=== PATIENT | female | born 1985 | race Caucasian/White ===

== ENCOUNTER → 2018-02-09 19:50 | Outpatient (CLI) | payer OTHER, SELFPAY ==
[2018-02-16 08:48] LABS: HPV APTIMA, High Risk Negative (Negative)
== END ==
PROVIDERS: Visit Provider Obstetrics & Gynecology
DX: Z12.4 Encounter for screening for malignant neoplasm of cervix (principal)
CPT/HCPCS: 88175; G0145

== ENCOUNTER → 2018-02-15 07:28 | Outpatient (CLI) | payer OTHER, SELFPAY ==
[2018-02-15 10:17] LABS: Cholesterol 127 mg/dL (200); Glucose 89 mg/dL (74-106); High Density Lipoprotein 51 mg/dL; Triglycerides 87 mg/dL; Very Low Density Lipoprotein 17 mg/dL (5-40)
[2018-02-16 08:36] LABS: Vitamin D,25 Hydroxy 33.8 ng/mL (29.95-100.01)
== END ==
PROVIDERS: Family Provider Internal Medicine; PCP Internal Medicine; Visit Provider Obstetrics & Gynecology
DX: Z13.21 Encounter for screening for nutritional disorder (principal); Z13.220 Encounter for screening for lipoid disorders; Z13.1 Encounter for screening for diabetes mellitus
CPT/HCPCS: 36415; 80061; 82306; 82947

== ENCOUNTER → 2018-10-15 08:48 | Outpatient (CLI) | payer OTHER, SELFPAY ==
--- NOTE | 2018-10-15 08:54 | RAD_ITS ---
STUDY: X-RAY - RIGHT FOOT CLINICAL: Female, 33 years old. Pain and swelling of the first metatarsophalangeal joint following injury. TECHNIQUE: 3 view(s) of the foot. COMPARISON: None. FINDINGS: Normal talus, calcaneus, and tarsal bones. Normal visualized subtalar, talonavicular, calcaneocuboid, tarsal and tarsometatarsal articulations. Normal metatarsi. Normal metatarsophalangeal joint of the great toe. Normal tibial and fibular sesamoid bones. Normal interphalangeal joint of the great toe. Normal phalanges of the great toe. Normal second through fifth metatarsophalangeal joints. Normal interphalangeal joints and phalanges of the lesser toes. The soft tissue structures are unremarkable. RAD/Foot min 3 Views IMPRESSION: Normal x-ray examination of the foot. Electronically Signed: Lauro Vasquez, at 15:17 EDT , Service support ,
== END ==
PROVIDERS: Family Provider Internal Medicine; PCP Internal Medicine; Referring Provider Internal Medicine; Visit Provider Internal Medicine
DX: M79.671 Pain in right foot (principal)
CPT/HCPCS: 73630

== ENCOUNTER → 2019-03-29 09:16 | Outpatient (CLI) | payer OTHER, SELFPAY ==
[2019-03-12 14:19] VITALS: BMI 23.9
--- NOTE | 2019-03-29 09:30 | US_ITS ---
STUDY: ULTRASOUND BREAST - LEFT REASON FOR EXAM: Female, 33 years old. Left breast palpable lump at 6:00. TECHNIQUE: Axial and longitudinal images of the LEFT breast were performed with a high resolution ultrasound transducer. COMPARISON: Comparison is made with prior mammogram done earlier today. FINDINGS: LEFT Breast: The inferior aspect of the left breast was examined by ultrasound. No sonographic timeout using US/Breast Limited Unilateral IMPRESSION: No sonographic abnormalities. ASSESSMENT CATEGORY: BIRADS Category 1: Negative. A letter regarding these results will be sent to the patient by the facility within 30 days. Electronically Signed: Lauro Vasquez, at 15:41 EDT , Service support ,
--- NOTE | 2019-03-29 09:30 | BI_ITS ---
MAMMOGRAPHY - BILATERAL DIAGNOSTIC REASON FOR EXAM: Female, 33 years old. Lump at the 6:00 position of the left breast. PERTINENT HISTORY: Grandmother with breast cancer. TECHNIQUE: Digital bilateral breast abdi (3D mammographic acquisition) in the CC and MLO projections. 2-D mediolateral oblique (MLO) and craniocaudad (CC) views of both breasts were obtained. CAD: Full Field Digital Mammography with Computer Added Detection was performed. COMPARISON: None. Baseline examination. FINDINGS: Breast Composition: The breasts are extremely dense, which lowers the sensitivity of mammography. There are no dominant masses or suspicious calcifications. No other significant abnormalities are identified. BI/DIAG MAMM W/CAD, BILAT IMPRESSION: Negative diagnostic mammogram. With the patient's history of a palpable abnormality in the left breast, correlation with ultrasound is recommended. ASSESSMENT CATEGORY: BIRADS Category 0: Incomplete. Need additional imaging evaluation. A letter regarding these results will be sent to the patient by the facility within 30 days. Approximately 10% of breast cancers are not detected by mammography. A normal mammogram should not delay biopsy of a clinically suspicious abnormality. Electronically Signed: Lauro Vasquez, at 13:14 EDT , Service support ,
== END ==
PROVIDERS: Family Provider Internal Medicine; PCP Internal Medicine; Referring Provider Obstetrics & Gynecology; Visit Provider Obstetrics & Gynecology
DX: N63.20 Unspecified lump in the left breast, unspecified quadrant (principal); Z80.3 Family history of malignant neoplasm of breast
CPT/HCPCS: 76642; 77062; 77066; G0279

== ENCOUNTER 2019-04-02 12:30 | Outpatient (RCR) | payer OTHER, SELFPAY ==
--- NOTE | 2019-03-08 16:43 | HP.PTEVAL_ITS ---
Patient's Visit Information FRANCHESCA WILCOX is a 33 year old F referred to Physical Therapy by Cristobal Sarmiento PA-C with a diagnosis of PAIN IN RIGHT SHOULDER. Date of Evaluation: 03/08/19 Physical Therapist: Hussain Page, PT, Cert MDT, OCS - Visit Plan Frequency: 2x /Week Duration: 4 Weeks Plan: PT INTEREVENTIONS RTC/SCAPULAR STRENGTHENING,POSTURAL EX'S,MODALTIES FOR PAIN RELIEVE NEEDED - Subjective Findings: This 33 y/o female presents to physical therapy with right shoulder pain. Patient may have strained right shoulder end December throwing baseball. Location of pain pposterior shoulder ,global .Seen ortho at [facility],did x-rays-,medro pack. 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 Symtoms increase 8/10 worst.Pain affects sleeping. Alleviating medropack,ice pack. Denies parathesia/tingling. Patient pain affects QOL and housework . Patient pain affects QOL. 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 SOCAIL: - Pain Right Shoulder Pain Intensity (Out of 10): 8 Pain Intensity Range: 10 Comment: 2-3/10 today - Objective POSTURE: mild foward posture. NEURO: intact. PALAPTION: unremarkable. AROM: shoulder flexion 155 degrees,abd 160 degrees ,ER 90 > all pane with OP. IR able to reach T8. MMT: RTC 4/5 ,anterior deltoid 4-/5,lateral deltoid 4-/5 pain ,middle traps 4-/5 ,lower traps 3+/5 - Special Tests R Shoulder Supine Impingement Test - RC Tear: Negative R Shoulder Lift Off Test - Subscapular Tear: Negative R Shoulder Neer - Impingement: Positive R Shoulder Chen Milo - Impingement: Positive - Goals Goal 1:: Independant with HEP Goal Time Frame: 4-6 Weeks Goal 2:: Improve posture for ADL'S Goal Time Frame: 4-6 Weeks Goal 3:: Decrease pain rght shoulder by 60% or > to improve function with OH activities Goal Time Frame: 4-6 Weeks Goal 4:: Patioent have full ROM shoulder for function tasks above 90 degrees with pain Goal Time Frame: 4-6 Weeks Goal 5:: Patient to improve owestry score by 5 points or> to improve QOL Goal Time Frame: 4-6 Weeks - Rehabilitation Potential Physical Therapy Diagnosis: This patient has right shouder pain with possibe posterior labral dysfunction with pain with ROm with abduction/ ER, OH activites ,deltoid pain with MMT thus benifit from skilled PT Rehabilitation Potential: Good - Anticipated Interventions Patient/Client Instruction: Educate patient on: Condition, Plan of Care For the Purpose of:: To decrease pain, To increase ROM, To improve muscle performance and motor function, To improve ability to perform ADL's, To increase tolerance to activity/condition/position, To improve ability of physical actions for home/community/work/leisure, To improve health of tissue, To decrease soft tissue restriction, To increase flexibility/ROM, To reduce risk of recurrence, To improve ability to perform tasks related to life management Therapeutic Exercise to Include: Strength training, Postural training, Flexibilty training, Scapular Strength/Stabilization Comment: RTC/SCAPULAR For the Purpose of:: To decrease pain, To increase ROM, To improve muscle performance and motor function, To improve ability to perform ADL's, To improve ability of physical actions for home/community/work/leisure, To improve health of tissue, To decrease soft tissue restriction, To increase flexibility/ROM, To reduce risk of recurrence, To improve ability to perform tasks related to life management TENS: Yes IF ES: Yes Cryotherapy (ice pack, ice massage): Yes Thermo therapy (hot pack): Yes Ultrasound (thermal/non thermal): Yes For the Purpose of:: To decrease pain, To increase ROM, To improve nutrient delivery to tissue, To increase oxygenation perfusion, To improve health of tissue, To decrease soft tissue restriction Thank you for the opportunity to evaluate your patient. For Medicare and Medicare HMO plans, please review the plan of care and approve it. It will need to be FAXED BACK to us at [phone] for Medicare purposes. For Medicare only, by signing this I certify the plan of care. Please let me know if there are questions or concerns regarding this plan of care. Physician Signature: Date:
--- NOTE | 2019-06-21 12:57 | HP.PTDCNRP_ITS ---
HP - Discharge Summary (1) - Patient Information FRANCHESCA WILCOX was seen in my office for initial evaluation on 03/08/19. The following Plan of Care was established for this patient: Initial Frequency: 2x /Week Initial Duration: 4 Weeks - Anticipated Interventions Patient/Client Instruction: Educate patient on: Condition, Plan of Care For the Purpose of:: To decrease pain, To increase ROM, To improve muscle perfor nimco and motor function, To improve ability to perform ADL's, To increase tolerance to activity/condition/position, To improve ability of physical actions for home/community/work/leisure, To improve health of tissue, To decrease soft tissue restriction, To increase flexibility/ROM, To reduce risk of recurrence, To improve ability to perform tasks related to life management Therapeutic Exercise to Include: Strength training, Postural training, Flexibilty training, Scapular Strength/Stabilization For the Purpose of:: To decrease pain, To increase ROM, To improve muscle performance and motor function, To improve ability to perform ADL's, To improve ability of physical actions for home/community/work/leisure, To improve health of tissue, To decrease soft tissue restriction, To increase flexibility/ROM, To reduce risk of recurrence, To improve ability to perform tasks related to life management TENS: Yes IF ES: Yes Cryotherapy (ice pack, ice massage): Yes Thermo therapy (hot pack): Yes Ultrasound (thermal/non thermal): Yes For the Purpose of:: To decrease pain, To increase ROM, To improve nutrient delivery to tissue, To increase oxygenation perfusion, To improve health of tissue, To decrease soft tissue restriction This patient was last seen in our office 04/02/19. Pertinent comments regarding their Physical therapy will appear below: Patient was seen for PT for right shoulder pain with tx focusing on RTC/postural ex's,modalties ,patient progressing thus is d/c. At this point I will be discontinuing this patient from physical therapy. I would be happy to see this patient again in the future if found appropriate by the physician. Thank you! Hussain Page, PT, Cert MDT, OCS
== END 2019-04-02 19:00 | disposition home or self-care (01) ==
LOC: PT 12:30
PROVIDERS: Family Provider Internal Medicine; PCP Internal Medicine; Referring Provider Physician Assistant; Visit Provider Physician Assistant
DX: M25.511 Pain in right shoulder (principal)
CPT/HCPCS: 97014; 97035; 97110; 97162; G0283

== ENCOUNTER → 2020-02-03 11:38 | Outpatient (CLI) | payer OTHER, SELFPAY ==
[2019-03-12 14:19] VITALS: BMI 23.9
[2020-02-03 15:44] LABS: Progesterone Level 4.34 ng/mL (See Comment); Vitamin B12 647 pg/mL (211-911); Vitamin D,25 Hydroxy 64.6 ng/mL
[2020-02-03 15:52] LABS: ALB/GLOB Ratio 1.4 RATIO (0.9-2.4); AST(SGOT) 13 U/L (15-37); Alanine Aminotransfer ALT/SGPT 19 U/L (13-56); Albumin, Serum 4.6 g/dL (3.2-5.0); Alkaline Phosphatase 64 U/L (45-117); Anion Gap 4 (5-15); BUN 10 mg/dL (7-18); BUN/Creat Ratio 11.8 RATIO (10-20); Calcium,Total 9.4 mg/dL (8.5-10.1); Chloride 107 mmol/L (98-107); Creatinine, Serum 0.85 mg/dL (0.55-1.02); EST Glomerular Filtration Rate 82 mL/min (>60); Est Glom Filt Rate - Afr Amer 99 mL/min (>60); Estradiol 150.3 pg/mL; Ferritin 41 ng/mL (8-252); Follicle Stimulating Hormone 9.8 mIU/mL; Globulin 3.4 g/dL (2.2-4.2); Glucose 84 mg/dL (74-106); Iron 142 ug/dL (50-170); Iron Binding Capacity,Total 301 ug/dL (250-450); PERCENT IRON SATURATION 47.2 % (15.0-55.0); Potassium 3.7 mmol/L (3.5-5.1); Prolactin 6.1 ng/mL; Sodium Level 139 mmol/L (136-145); T4 Free Direct 1.02 ng/dL (0.76-1.46); Thyroid Stim Hormone (TSH) 1.57 uIU/mL (0.358-3.74)
[2020-02-03 18:24] LABS: Absolute Lymphocyte Count 1.69 X10^3/uL (0.83-4.51); Absolute Neutrophil Count 5.2 X10^3/uL (2.0-7.7); Basophil# 0.04 X10^3/uL; Basophil% 0.5 % (0-1); Eosinophil# 0.06 X10^3/uL; Eosinophils% 0.8 % (0-5); Hematocrit 38.7 % (37-47); Hemoglobin 12.6 g/dL (12.0-15.0); Lymphocyte # 1.69 X10^3/ul (4.0); Lymphocyte % 22.3 % (19-41); Mean Corp Hgb Conc 32.6 g/dL (32-36); Mean Corpuscular Hgb 28.3 pg (27.0-32.0); Mean Corpuscular Volume 86.8 fL (81-99); Mean Platelet Vol. 11.2 fl (6.2-12.0); Monocyte# 0.52 X10^3/uL; Monocyte% 6.9 % (0-10); NRBC Flagged by Analyzer 0 % (0-5); Neutrophil # 5.24 X10^3/uL (2.7-7.7); Neutrophil % 69.2 % (47-70); Platelet Count 293 K/mm3 (150-450); RBC Distribution Width SD 41.5 fl (35.1-43.9); Red Blood Count 4.46 M/mm3 (4.2-5.4); White Blood Count 7.6 K/mm3 (4.4-11.0)
[2020-02-06 09:36] LABS: Testosterone, % Free 1.63 % (0.50-2.80); Testosterone, Free 0.49 ng/dL (0.10-0.85); Testosterone, Total 30 ng/dL (8-48)
== END ==
PROVIDERS: PCP Internal Medicine
DX: N64.3 Galactorrhea not associated with childbirth (principal)
CPT/HCPCS: 36415; 80053; 82306; 82607; 82627; 82670; 82728; 83001; 83002; 83540; 83550; 84144; 84146; 84402; 84403; 84439; 84443; 84481; 85025; 82626

== ENCOUNTER → 2020-02-18 13:42 | Outpatient (CLI) | payer OTHER, SELFPAY ==
[2020-02-06 15:17] VITALS: BMI 23.9
--- NOTE | 2020-02-18 13:43 | US_ITS ---
STUDY: ULTRASOUND OF THE FEMALE PELVIS - COMPLETE REASON FOR EXAM: Female, 34 years old. iu check LMP: 01/16/2020. TECHNIQUE: Transabdominal and Transvaginal TECHNICAL QUALITY: Adequate. COMPARISON: None. FINDINGS: The uterus is anteverted and is in a midline position. The uterus measures 8 cm x 5.1cm x 4.2 cm. Normal uterine cervix. The endometrium measures 3.7 mm in thickness, and is . There is no demonstrated endometrial mass. There is no demonstrated myometrial mass. I.U.D. - The patient does have an I.U.D. The right ovary is visualized. The right ovary measures 2.6 cm x 2 cm x 2.5 cm. There is no right ovarian cyst or ovarian mass. There is no visualized right adnexal mass or complex lesion. There is normal arterial and normal venous vascularity. The left ovary is visualized. The left ovary measures 2.5 cm x 2 cm x 2.9 cm. There is a dominant follicle measuring 1.8 cm x 1.3 cm x 1.5 cm There is no visualized left adnexal mass or complex lesion. There is normal arterial and normal venous vascularity. There is no fluid in the cul-de-sac. The pre void volume of the bladder was 546 ml. Polycystic ovary disease: No. US/Pelvic (Non ) IMPRESSION: IUD is seen within the endometrium. Dominant follicle in the left ovary measuring 1.8 cm x 1.3 cm x 1.5 cm. Electronically Signed: Lauro Vasquez, at 15:28 EDT , Service support ,
--- NOTE | 2020-02-18 13:43 | US_ITS ---
STUDY: ULTRASOUND OF THE FEMALE PELVIS - COMPLETE REASON FOR EXAM: Female, 34 years old. iu check LMP: 01/16/2020. TECHNIQUE: Transabdominal and Transvaginal TECHNICAL QUALITY: Adequate. COMPARISON: None. FINDINGS: The uterus is anteverted and is in a midline position. The uterus measures 8 cm x 5.1cm x 4.2 cm. Normal uterine cervix. The endometrium measures 3.7 mm in thickness, and is . There is no demonstrated endometrial mass. There is no demonstrated myometrial mass. I.U.D. - The patient does have an I.U.D. The right ovary is visualized. The right ovary measures 2.6 cm x 2 cm x 2.5 cm. There is no right ovarian cyst or ovarian mass. There is no visualized right adnexal mass or complex lesion. There is normal arterial and normal venous vascularity. The left ovary is visualized. The left ovary measures 2.5 cm x 2 cm x 2.9 cm. There is a dominant follicle measuring 1.8 cm x 1.3 cm x 1.5 cm There is no visualized left adnexal mass or complex lesion. There is normal arterial and normal venous vascularity. There is no fluid in the cul-de-sac. The pre void volume of the bladder was 546 ml. Polycystic ovary disease: No. US/Transvaginal Non- IMPRESSION: IUD is seen within the endometrium. Dominant follicle in the left ovary measuring 1.8 cm x 1.3 cm x 1.5 cm. Electronically Signed: Lauro Vasquez, at 15:28 EDT , Service support ,
== END ==
PROVIDERS: PCP Internal Medicine; Referring Provider Nurse Practitioner Women's Health; Visit Provider Nurse Practitioner Women's Health
DX: N92.6 Irregular menstruation, unspecified (principal); Z30.431 Encounter for routine checking of intrauterine contraceptive device
CPT/HCPCS: 76830; 76856

== ENCOUNTER 2020-04-28 10:30 | Day surgery (SDC) | payer OTHER, SELFPAY ==
[2020-03-03 09:54] VITALS: BMI 24.5
[2020-04-17 15:50] VITALS: BMI 24.4
[2020-04-24 16:59] LABS: Hematocrit 39.8 % (37-47); Hemoglobin 13.4 g/dL (12.0-15.0); Mean Corp Hgb Conc 33.7 g/dL (32-36); Mean Corpuscular Hgb 28.8 pg (27.0-32.0); Mean Corpuscular Volume 85.6 fL (81-99); Mean Platelet Vol. 10.6 fl (6.2-12.0); Platelet Count 340 K/mm3 (150-450); RBC Distribution Width CV 13.1 % (11.6-14.6); RBC Distribution Width SD 40.8 fl (35.1-43.9); Red Blood Count 4.65 M/mm3 (4.2-5.4)
[2020-04-28] VITALS (9 sets, daily range): BP systolic 106–114; BP diastolic 59–68; PULSE 69–81; RESP 16; TEMP 36.8–37.1; O2SAT 96–100; BMI 24.3
--- NOTE | 2020-04-28 08:53 | HP.PCM_ITS ---
- Problem List (1) IUD strings lost Status: Acute History and Physical Date of Admission: 04/28/20 Intake Vital Signs 04/17/20 Height 5 ft 4 in 04/17/20 Weight: 142 lb 8 oz 04/17/20 BP 130/86 H 04/15/20 BMI 24.5 Intake Visit Reasons: IUD removal under anesth. 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: No Is patient in pain?: No Allergies ciprofloxacin [From Cipro] Allergy (Verified 04/17/20 15:51) Rash ciprofloxacin HCl [From Cipro] Allergy (Verified 04/17/20 15:51) Rash Medications cholecalciferol (vitamin D3) 50 mcg (2,000 unit) capsule 2,000 unit PO DAILY 02/09/18 [History Confirmed 04/17/20] multivitamin 1 tab PO DAILY 02/09/18 [History Confirmed 04/17/20] copper 380 square mm intrauterine device 1 device INTRAUTERINE ONCE 02/06/20 [History Confirmed 04/17/20] progesterone micronized 100 mg capsule 125 mg PO QAM cap 02/06/20 [History Confirmed 04/17/20] Post menopausal: No Patient : No : No PFSH Medical History Abnormal Pap smear of cervix (Acute) Surgical History History of colposcopy (Resolved) S/P (Resolved) S/P appendectomy (Resolved) Family History Grandmother Breast cancer Grandmother Heart disease Grandfather Heart disease Social History (Updated 04/19/20 @ 21:[address] 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 preop: Details: FRANCHESCA WILCOX is a 35 year old who presents for consult for IUD removal. Reports occasional cramping pain. Reports heavy bleeding with IUD. Had failed removal in office due to lost IUD strings. Pregancy History 2 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 Date Name GA/Weeks Outcome Route Bth Weight Infant Gen Labor Lgth Anesthesia Del Locatn Provider FOB 06/19/11 Nick 40 live - full term 9lbs 2oz Male spinal [facility] Dr. Glenna Richardson 11/24/15 Van 39 live - full term 7lbs 7oz Male spinal [facility] Dr. Adams Richardson Delivery Date: 06/19/11 No issues during . Csection due to labor stalling. Aminata Angelo Delivery Date: 11/24/15 No issues during or delivery. Aminata Angelo ROS Const Constitutional: Reports system reviewed and no additional complaints, except as docu ENT ENT: Reports system reviewed and no additional complaints, except as docu Cardio Card: Reports system reviewed and no additional complaints, except as docu Resp Resp: Reports system reviewed and no additional complaints, except as docu GI GI: Reports system reviewed and no additional complaints, except as docu : Reports system reviewed and no additional complaints, except as docu Musc Musc: Reports system reviewed and no additional complaints, except as docu Skin Skin/Breast: Reports system reviewed and no additional complaints, except as docu Neuro Neuro: Reports system reviewed and no additional complaints, except as docu Psych Psych: Reports system reviewed and no additional complaints, except as docu Exam Const General: cooperative, healthy appearing, comfortable, well developed, well groomed Nutritional Appearance: average body habitus, well nourished Orientation: alert, awake, oriented x3 HENHI Head: normal to inspection, normocephalic, atraumatic Eyes Pupils: PERRL, accommodation normal EOM: EOM intact bilaterally Neck Neck: normal visual inspection, full ROM Resp Effort & Inspection: normal respiratory effort, able to speak in complete sen tences, symmetric chest movement Cardio Rate: regular rate Skin General: no rashes or lesions noted, elasticity normal, turgor normal Lesions: no lesions Rashes: no rashes Neuro General: alert, awake, oriented x3 Cranial Nerves: CN's II-XI intact bilaterally, PERRL, EOM intact bilaterally Cognition: normal cognition Speech: speech normal Gait: normal gait Extrem General: normal to inspection, full ROM, no pedal edema Psych Appearance: grossly normal Mental Status: mental status grossly normal Mood: congruent mood Affect: normal affect Speech and Movement: speech and movement normal Attitude: cooperative Thought Process: normal Thought Content: normal Judgment: judgment good Assessment & Plan 1. Intrauterine contraceptive device threads lost, subsequent encounter [id number] Plan Patient presents for consult for IUD removal. Had failed removal in the office due to lost IUD strings. Had prior ultrasound demonstrating IUD present inside of uterus. Recommended exam under anesthesia, hysteroscopy, IUD removal. The nature of the procedure was described to the patient. The risks, benefits, indications, and alternatives to the procedure were discussed with the patient including bleeding, infection, and damage to surrounding structures. Discussed that risks are very low. Discussed the possibility of perforation and that this could require laparotomy or laparoscopy. Discussed the possibility of damage to surrounding structures including uterus, tubes, ovaries, bowel, or bladder. Understands the risk of hospitalization or reoperation. Voices understanding and agrees to proceed. UPDATE- I have seen the patient and performed any clinically relevant updates to the history and physical exam. Yara Mckeon MD
[2020-04-28 11:07] LABS: Internal QC Validated? YES +Cl - CLEAR BKGD; Pregnancy, Urine Negative Negative
[2020-04-28] MEDS: Lactated Ringers 1,000 ML 100 ML IV (11:22)
--- NOTE | 2020-04-28 11:34 | DCINST_ITS ---
Discharge Diet: No Restrictions Discharge Activity: Return to Normal Activity, May Shower, May Take a Tub Bath - in 2 weeks. Allergies/Adverse Reactions: Allergies ciprofloxacin [From Cipro] Allergy (Verified 04/28/20 10:54) Rash ciprofloxacin HCl [From Cipro] Allergy (Verified 04/28/20 10:54) Rash Medications to take at Discharge cholecalciferol (vitamin D3) 50 mcg (2,000 unit) capsule 2,000 unit PO DAILY 02/09/18 multivitamin 1 tab PO DAILY 02/09/18 copper 380 square mm intrauterine device 1 device INTRAUTERINE ONCE 02/06/20 Magnesium 200 mg PO DAILY 04/20/20 Vitamin B Complex 1 ea PO DAILY 04/20/20 Zinc 50 mg PO DAILY 04/20/20 Primary Care Physician: Elda Joy DO [Primary Care Provider] - Test Results: Test results from this visit will be discussed in further detail at your follow- up appointment, if applicable.
--- NOTE | 2020-04-28 11:36 | PCM.OPRPT ---
Problem List (1) IUD strings lost Status: Acute Report of Operation Date of Procedure: 04/28/20 Pre-Operative Diagnosis: Retained IUD Post-Operative Diagnosis: Same Surgery/Procedure Performed:: Pelvic exam under anesthesia, IUD removal Description of Surgical Findings:: Normal-appearing cervix. IUD strings noted to be tucked inside the uterine cavity. Type of Anesthesia:: MAC Special Medications: None Specimen's removed: IUD Estimated Blood Loss (mL): 5 cc Description of Procedure: The patient was taken to the operating room where general anesthesia was obtained without difficulty. She was prepped and draped in the dorsal lithotomy position with yellowfin stirrups. Weighted speculum was placed in the posterior aspect of the vagina and the anterior lip cervix was grasped with a single-tooth tenaculum. Polyp forceps were then introduced into the uterine cavity without difficulty. The IUD was grasped and removed atraumatically. The IUD and strings were noted to be intact. The tenaculum was removed and hemostasis was noted. All other instruments were then removed from the vagina. The procedure was deemed complete. The patient was awakened from anesthesia and taken to recovery room in stable condition. - Complications None - Admit VTE Documentation VTE Present on Admission: No VTE Mechan Device Prophylaxis: SCD's VTE Pharm Prophylaxis ordered?: No Multi Select Codes - Urinary/Genital Urinary/Genital CPT Codes: 78242 PEUA - IUD removal - 98665
[2020-04-28] MEDS: Lubricating Jelly 60 GM Tube 30 GM TOPICAL (12:10)
== END 2020-04-28 13:35 | disposition home or self-care (01) ==
LOC: SDC 10:30 → AC 10:31
PROVIDERS: PCP Internal Medicine; Referring Provider Obstetrics & Gynecology; Visit Provider Obstetrics & Gynecology
PROC: 0UDB8ZZ Extraction of Endometrium, Via Natural or Artificial Opening Endoscopic (ICD-10-PCS; CPT 58558; principal; 2020-04-28 11:45)
DX: T83.32XA Displacement of intrauterine contraceptive device, initial encounter (principal); Z20.828 Contact with and (suspected) exposure to other viral communicable diseases
CPT/HCPCS: 00940; 58301; 36415; 81025; 85027; 86850; 86900; 86901; 87426; C9803; J7120; J2405

== ENCOUNTER 2020-06-23 08:00 | Outpatient (RCR) | payer OTHER, SELFPAY ==
[2020-04-28 10:58] VITALS: BMI 24.3
== END 2020-06-23 23:59 ==
LOC: IMMUN 08:00
PROVIDERS: PCP Internal Medicine; Visit Provider Family Medicine
DX: Z23 Encounter for immunization (principal)
CPT/HCPCS: 0011A; 0012A

== ENCOUNTER 2021-11-04 12:30 | Outpatient (RCR) | payer SELFPAY ==
--- NOTE | 2021-10-27 14:49 | HP.PTEVAL_ITS ---
Patient's Visit Information FRANCHESCA WILCOX is a 36 year old F referred to Physical Therapy by Self Referred with a diagnosis of . Date of Evaluation: 10/27/21 Physical Therapist: Tahira Washington DPT - Visit Plan Frequency: 1x/Week Duration: 6 Weeks Plan: Dry Needling - Subjective Patient reports that she is coming back for DN as it has worked in the past for her cervical spine. She is really tight and woke up this week with a ALVAREZ. - Objective Posture: fair throughout. Gait: no deviation. ROM: Cervical: WFL but reports tightness in upper trap and cervical paraspinals. Strength: WFL. Palpation: tender along cervical paraspinals, upper trap, levator and into the medial border of the scapula - Goals Goal 1:: Patient will report no ALVAREZ for 1 week Goal Time Frame: 4-6 Weeks - Anticipated Interventions Manual Therapy Techniques to Include: Functional dry needling Thank you for the opportunity to evaluate your patient. For Medicare and Medicare HMO plans, please review the plan of care and approve it. It will need to be FAXED BACK to us at [phone] for Medicare purposes. For Medicare only, by signing this I certify the plan of care. Please let me know if there are questions or concerns regarding this plan of care. Physician Signature: Date:
--- NOTE | 2022-04-06 09:53 | HP.PT.NRP ---
FRANCHESCA WILCOX was seen in my office for initial evaluation on 10/27/21. The following Plan of Care was established for this patient: Initial Frequency: 1x/Week Initial Duration: 6 Weeks Manual Therapy Techniques to Include: Functional dry needling This patient was last seen in our office . Pertinent comments regarding their Physical therapy will appear below: Patient has not attended PT in over 30 days appropriate for d/c and return to MD for further evaluation PRN At this point I will be discontinuing this patient from physical therapy. I would be happy to see this patient again in the future if found appropriate by the physician. Thank you! WILNER MartínezT
== END 2021-11-04 19:00 | disposition home or self-care (01) ==
LOC: PT 12:30
PROVIDERS: PCP Internal Medicine
DX: Z00.00 Encounter for general adult medical examination without abnormal findings (principal)

== ENCOUNTER → 2022-07-14 | Outpatient (CLI) | payer OTHER, SELFPAY ==
[2022-07-22 19:11] LABS: HPV APTIMA, High Risk Negative (Negative)
== END | disposition home or self-care (01) ==
LOC: LABSPEC 12:02
PROVIDERS: PCP Internal Medicine; Referring Provider Obstetrics & Gynecology; Visit Provider Obstetrics & Gynecology
DX: Z12.4 Encounter for screening for malignant neoplasm of cervix (principal)
CPT/HCPCS: 87624; 88175; G0145

== ENCOUNTER → 2022-07-29 | Outpatient (CLI) | payer OTHER, SELFPAY ==
[2022-07-29 10:07] LABS: Absolute Lymphocyte Count 1.71 X10^3/uL (0.83-4.51); Absolute Neutrophil Count 3.4 X10^3/uL (2.0-7.7); Basophil# 0.05 X10^3/uL; Basophil% 0.9 % (0-1); Eosinophil# 0.12 X10^3/uL; Eosinophils% 2.1 % (0-5); Hematocrit 39.7 % (37-47); Hemoglobin 13.2 g/dL (12.0-15.0); Lymphocyte # 1.71 X10^3/ul (0.83-4.51); Lymphocyte % 29.6 % (19-41); Mean Corp Hgb Conc 33.2 g/dL (32-36); Mean Corpuscular Hgb 28.9 pg (27.0-32.0); Mean Corpuscular Volume 86.9 fL (81-99); Mean Platelet Vol. 10.7 fl (6.2-12.0); Monocyte# 0.46 X10^3/uL; NRBC Flagged by Analyzer 0 % (0-5); Neutrophil # 3.42 X10^3/uL (2.7-7.7); Neutrophil % 59.1 % (47-70); Platelet Count 306 K/mm3 (150-450); RBC Distribution Width SD 41.2 fl (35.1-43.9); Red Blood Count 4.57 M/mm3 (4.2-5.4); White Blood Count 5.8 K/mm3 (4.4-11.0)
[2022-07-29 10:58] LABS: Hemoglobin A1c 4.6 % (3.8-5.6)
[2022-07-29 11:01] LABS: Cholesterol 127 mg/dL (200); Glucose 91 mg/dL (74-106); High Density Lipoprotein 53 mg/dL; T4 Free Direct 1.01 ng/dL (0.76-1.46); Thyroid Stim Hormone (TSH) 2.15 uIU/mL (0.358-3.74); Triglycerides 81 mg/dL; Very Low Density Lipoprotein 16 mg/dL (5-40)
== END | disposition home or self-care (01) ==
LOC: LAB 08:21
PROVIDERS: PCP Internal Medicine; Visit Provider Obstetrics & Gynecology
DX: Z01.419 Encounter for gynecological examination (general) (routine) without abnormal findings (principal); L65.9 Nonscarring hair loss, unspecified
CPT/HCPCS: 36415; 80061; 82947; 83036; 84439; 84443; 85025

== ENCOUNTER → 2022-11-15 | Outpatient (CLI) | payer OTHER, SELFPAY ==
[2022-11-15 08:34] LABS: Color, Urine Yellow (Yellow); Glucose, Dipstick Normal (Normal); Ketone-Dipstick Negative (Negative); Leukocyte Esterase-Dipstick 500 /ul (Negative); Nitrite-Dipstick Positive (Negative); Occult Blood-Urine 150 /ul (Negative); Protein-Dipstick 30 mg/dl (Negative); Specific Gravity, Urine 1.015 (1.002-1.030); Urine Bilirubin Dipstick Negative (Negative); Urine Clarity Cloudy (Clear); Urine Urobilinogen Normal (Normal)
[2022-11-15 08:42] LABS: Bacteria 2+ /hpf (None Seen); Mucous, Urine 1+ /hpf (<or=2+); Red Blood Cells-Urine 0-5 SEEN /hpf (0-5); Squamous Epithelial Cells - UA 0-5 SEEN /hpf (5-10); White Blood Cells 50-100 SEEN /hpf (0-5)
== END | disposition home or self-care (01) ==
LOC: LAB 08:10
PROVIDERS: PCP Internal Medicine; Referring Provider Physician Assistant Medical; Visit Provider Physician Assistant Medical
DX: N39.0 Urinary tract infection, site not specified (principal)
CPT/HCPCS: 81001

== ENCOUNTER → 2022-12-20 | Outpatient (CLI) | payer OTHER, SELFPAY ==
[2022-12-20 13:16] LABS: Absolute Lymphocyte Count 2.16 X10^3/uL (0.83-4.51); Absolute Neutrophil Count 4.9 X10^3/uL (2.0-7.7); Basophil# 0.05 X10^3/uL; Basophil% 0.6 % (0-1); Eosinophil# 0.11 X10^3/uL; Eosinophils% 1.4 % (0-5); Hematocrit 38.9 % (37-47); Hemoglobin 13.1 g/dL (12.0-15.0); Lymphocyte # 2.16 X10^3/ul (0.83-4.51); Lymphocyte % 27.6 % (19-41); Mean Corp Hgb Conc 33.7 g/dL (32-36); Mean Corpuscular Hgb 29.4 pg (27.0-32.0); Mean Corpuscular Volume 87.2 fL (81-99); Mean Platelet Vol. 10.2 fl (6.2-12.0); Monocyte# 0.54 X10^3/uL; Monocyte% 6.9 % (0-10); NRBC Flagged by Analyzer 0 % (0-5); Neutrophil # 4.94 X10^3/uL (2.7-7.7); Neutrophil % 63.2 % (47-70); Platelet Count 276 K/mm3 (150-450); RBC Distribution Width SD 41.5 fl (35.1-43.9); Red Blood Count 4.46 M/mm3 (4.2-5.4); White Blood Count 7.8 K/mm3 (4.4-11.0)
[2022-12-20 13:56] LABS: Progesterone Level 0.58 ng/mL (See Comment); Vitamin D,25 Hydroxy 51.6 ng/mL
[2022-12-20 20:16] LABS: ALB/GLOB Ratio 1.2 RATIO (0.9-2.4); AST(SGOT) 17 U/L (15-37); Alanine Aminotransfer ALT/SGPT 23 U/L (13-56); Albumin, Serum 4.3 g/dL (3.2-5.0); Alkaline Phosphatase 58 U/L (45-117); Anion Gap 5 (5-15); BUN 12 mg/dL (7-18); BUN/Creat Ratio 14.6 RATIO (10-20); Calcium,Total 8.9 mg/dL (8.5-10.1); Chloride 107 mmol/L (98-107); Creatinine, Serum 0.82 mg/dL (0.55-1.02); EST Glomerular Filtration Rate 83 mL/min (>60); Est Glom Filt Rate - Afr Amer 101 mL/min (>60); Estradiol 124.9 pg/mL; Free T3 2.6 pg/mL (2.18-3.98); Globulin 3.6 g/dL (2.2-4.2); Glucose 106 mg/dL (74-106); Potassium 3.6 mmol/L (3.5-5.1); Protein, Total 7.9 g/dL (6.4-8.2); Sodium Level 140 mmol/L (136-145); T4 Free Direct 1.15 ng/dL (0.76-1.46)
[2022-12-22 05:07] LABS: Thyroid Peroxidase AB 9 IU/mL (0-34)
== END | disposition home or self-care (01) ==
LOC: LAB 12:53
PROVIDERS: PCP Internal Medicine; Referring Provider Preventive Medicine Public Health & General Preventive Medicine; Visit Provider Preventive Medicine Public Health & General Preventive Medicine
DX: E03.9 Hypothyroidism, unspecified (principal); E55.9 Vitamin D deficiency, unspecified; N95.1 Menopausal and female climacteric states
CPT/HCPCS: 36415; 80053; 82306; 82670; 84144; 84403; 84439; 84443; 84481; 85025; 86376

== ENCOUNTER 2024-01-11 08:00 | Outpatient (RCR) | payer OTHER, SELFPAY ==
--- NOTE | 2023-09-11 08:49 | HP.PTEVAL ---
Patient's Visit Information Visit Information Visit Information: FRANCHESCA WILCOX is a 38 year old F referred to Physical Therapy by Self Referred with a diagnosis of Neck Pain. Date of Evaluation: 09/11/23 Physical Therapist: Tahira Washington DPT Visit Plan Frequency: 1x/Week Duration: 6 Months Plan: Dry Needling, Scapular Strength/Stabilization, Postural Education HEP Given IE: mid row, LAE, serratus punch, chin tucks Subjective Subjective: Neck pain for a long time- she has been having dry needling on/off for many years- which helps but has never really taken it completely away. Her neck pain ebbs and flows with stress and some movements. If she moves wrong it will seize up. Worst: 6/10 Agg: wrong movements and stress. Best: 0/10 Eases: dry needling, massage, stretching, decreasing stress. Xrays were negative. No MRI on her neck. No specific injury- no trauma that she can remember. Pain is located mostly left in the upper trap and radiates into the scapula and sometimes down the deltoid and down the to elbow. Never past the elbow. She does not report N/T in the fingers. Describes the pain as dull and achy- sharp at times when she moves the wrong way. She does report ALVAREZ- they happen a couple of times a week when she in a flare- she takes OTC medications for them which helps. 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 She also has 2 boys and a family. She has started back to working out- ride a peloton and do some free weights. PMHx: none Meds: none Objective Objective: Posture: forward head and rounded shoulders- can correct with verbal cues Gait: no deviation noted ROM: WNL in all planes Palpation: trigger points throughout upper traps, levators, medial border of the scapula, cervical spine, and occiput. Strength: Scap: fair minus mild winging, Shoulders/Elbow/Wrist: 5/5 Flex: UT: moderate, Levator: moderate Balance/Special Test Scores Oswestry Neck Score: 4 Goals Goal 1:: Patient will report participation in home exercise program activities a minimum of 5 days per week, as adjunct to skilled physical therapy intervention in preparation for independent home management upon discharge. Goal Time Frame: 4-6 Weeks Goal 2:: Patient will maintain proper posture t/o tx session to demo increased scapular strength/stabilization Goal Time Frame: 4-6 Weeks Goal 3:: Patient will report no pain for 1 week Goal Time Frame: 4-6 Weeks Rehabilitation Potential Physical Therapy Diagnosis: Patient presents with increased trigger points due to poor posture and decreased scapular strength/stabilization leading to increased headaches and pain. Rehabilitation Potential: Good Anticipated Interventions Patient/Client Instruction: Educate patient on: Benefits of Fitness Program Therapeutic Exercise to Include: Strength training, Endurance training, Agility training, Body mechanics, Postural training, Flexibilty training, Neuromotor development, Relaxation training, Passive ROM, Active ROM, Dynamic Lumbar Stabilization and Scapular Strength/Stabilization For the Purpose of:: To improve muscle performance and motor function Manual Therapy Techniques to Include: Functional dry needling and Soft tissue mobilization For the Purpose of:: To improve muscle performance and motor function TENS: Yes Cryotherapy (ice pack, ice massage): Yes Thermo therapy (hot pack): Yes Text: Thank you for the opportunity to evaluate your patient. For Medicare and Medicare HMO plans, please review the plan of care and approve it. It will need to be FAXED BACK to us at [phone] for Medicare purposes. For Medicare only, by signing this I certify the plan of care. Please let me know if there are questions or concerns regarding this plan of care. Physician Signature: Date:
== END 2024-01-11 19:00 | disposition home or self-care (01) ==
LOC: PT 08:00
PROVIDERS: PCP Internal Medicine
DX: M54.2 Cervicalgia (principal)
CPT/HCPCS: 97110; 97140; 97162; 97530

== ENCOUNTER → 2024-10-03 | Outpatient (CLI) | payer OTHER, SELFPAY ==
[2024-10-03 08:46] LABS: Absolute Lymphocyte Count 1.73 X10^3/uL (0.83-4.51); Absolute Neutrophil Count 3.4 X10^3/uL (2.0-7.7); Basophil# 0.06 X10^3/uL; Eosinophil# 0.18 X10^3/uL; Eosinophils% 3.1 % (0-5); Hematocrit 38.5 % (37-47); Hemoglobin 13.5 g/dL (12.0-15.0); Lymphocyte # 1.73 X10^3/ul (0.83-4.51); Lymphocyte % 29.5 % (19-41); Mean Corp Hgb Conc 35.1 g/dL (32-36); Mean Corpuscular Hgb 29.6 pg (27.0-32.0); Mean Corpuscular Volume 84.4 fL (81-99); Mean Platelet Vol. 10.3 fl (6.2-12.0); Monocyte# 0.51 X10^3/uL; Monocyte% 8.7 % (0-10); NRBC Flagged by Analyzer 0 % (0-5); Neutrophil # 3.38 X10^3/uL (2.7-7.7); Neutrophil % 57.5 % (47-70); Platelet Count 263 K/mm3 (150-450); RBC Distribution Width CV 12.8 % (11.6-14.6); RBC Distribution Width SD 39.6 fl (35.1-43.9); Red Blood Count 4.56 M/mm3 (4.2-5.4); White Blood Count 5.9 K/mm3 (4.4-11.0)
[2024-10-03 09:22] LABS: Hemoglobin A1c 4.8 % (<=5.6)
[2024-10-03 09:30] LABS: Follicle Stimulating Hormone 3.2 mIU/mL; Luteinizing Hormone 5.4 mIU/mL
[2024-10-04 08:08] LABS: CRP, High Sensitivity 1.01 mg/L (0.00-3.00); HOMOCYSTEINE 8.8 umol/L (0.0-14.5); PROGESTERONE 10.7 ng/mL (.)
== END | disposition home or self-care (01) ==
LOC: LAB 07:58
PROVIDERS: PCP Internal Medicine; Referring Provider Physician Assistant; Visit Provider Physician Assistant
DX: N92.6 Irregular menstruation, unspecified (principal); F32.81 Premenstrual dysphoric disorder; R00.2 Palpitations; R73.01 Impaired fasting glucose
CPT/HCPCS: 36415; 82627; 82670; 83001; 83002; 83036; 83090; 83525; 84144; 84270; 84402; 84403; 85025; 86141; 82626

== ENCOUNTER 2024-12-12 06:56 | Outpatient (RCR) | payer OTHER, SELFPAY ==
--- NOTE | 2025-01-08 07:26 | HP.PT.NRP ---
Patient Information Patient Information: FRANCHESCA WILCOX was seen in my office for initial evaluation on . The following Plan of Care was established for this patient: Anticipated Interventions Manual Therapy Techniques to Include: Functional dry needling Last Seen Last Seen: This patient was last seen in our office . Pertinent comments regarding their Physical therapy will appear below: Dry Needling d/c chart At this point I will be discontinuing this patient from physical therapy. I would be happy to see this patient again in the future if found appropriate by the physician. Thank you! WILENR MartínezT
== END 2024-12-12 19:00 | disposition home or self-care (01) ==
LOC: PT 06:56
PROVIDERS: PCP Internal Medicine
DX: Z76.89 Persons encountering health services in other specified circumstances (principal)

== ENCOUNTER 2025-01-07 06:51 | Outpatient (RCR) | payer OTHER, SELFPAY ==
--- NOTE | 2025-01-07 07:45 | HP.PTEVAL ---
Patient's Visit Information Visit Information Visit Information: FRANCHESCA WILCOX is a 39 year old F referred to Physical Therapy by Dr. Hadley Kat DO with a diagnosis of Sciatica. Date of Evaluation: 01/07/25 Physical Therapist: Tahira Washington DPT Visit Plan Frequency: 2x /Week Duration: 4 Weeks Plan: Extension Bias Subjective Subjective: The patient reports that she is having pain down both legs- not on both sides at the same time-its radiating down from the buttocks and then it starts again at the knee and radiates down to the toes. Did dry needling- then drove on vacation and it was okay. She can crossfit and then gets in the ice bath and its okay then she gets in the car and its miserable. She is driving 30 min total for work and then to/from kids school- about an hour a day. 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 Nothing else aggravates it but sitting. Pain is aggravating ache. Some N/T but not pins and needles. Sleep: disturbed occasionally. Eases: dry needling, standing. Once she stands it takes anywhere from 5-30 min to go away. She tried to do the lumbar roll and has been watching posture and that has helped. On the steroid dose pack which has helped but she has not done a lot currently. x-rays- negative PMHx/Meds: progesterone, monoxidil Objective Objective: Posture: fair throughout- can correct with verbal cues Gait: no deviation noted SLS: 30 sec without LOB ROM: WNL in all planes Sensation: WNL to gross touch bilateral Strength: Core: fair, Hip: 4+/5 with the exception of abd: 4/5, Knee: 5/5, Ankle: 5/5 Flex: HS: mild, Gastroc: mild Palpation: mild tenderness to piriformis Special Test: SLR right produces dural s/s, repetitive flexion increases s/s in the left calf, extension decreases s/s Balance/Special Test Scores Oswestry Low Back Score: 10 Goals Goal 1:: Patient will be I with HEP and progression Goal Time Frame: 4-6 Weeks Goal 2:: Patient will report no dural s/s Goal Time Frame: 4-6 Weeks Goal 3:: Patient will return to all normal ADL's and recreational activities without pain Goal Time Frame: 4-6 Weeks Rehabilitation Potential Physical Therapy Diagnosis: Patient presents with decreased core strength/stabilization and muscular endurance leading to poor posture and increased pain with prolonged sitting Rehabilitation Potential: Good Anticipated Interventions Therapeutic Exercise to Include: Strength training, Power training, Endurance training, Balance training, Coordination, Agility training, Body mechanics, Postural training, Flexibilty training, Gait and locomotor training, Neuromotor development, Dynamic Lumbar Stabilization, Alan Exercises and Scapular Strength/Stabilization Manual Therapy Techniques to Include: Functional dry needling and Soft tissue mobilization TENS: Yes Cryotherapy (ice pack, ice massage): Yes Thermo therapy (hot pack): Yes Ultrasound (thermal/non thermal): Yes Text: Thank you for the opportunity to evaluate your patient. For Medicare and Medicare HMO plans, please review the plan of care and approve it. It will need to be FAXED BACK to us at [phone] for Medicare purposes. For Medicare only, by signing this I certify the plan of care. Please let me know if there are questions or concerns regarding this plan of care. Physician Signature: Date:
--- NOTE | 2025-06-19 10:45 | HP.PTDCSUM ---
Discharge Summary D/C summary: It has been my pleasure to treat FRANCHESCA WILCOX referred by Dr. Hadley Kat DO, with the diagnosis of Sciatica for a total of 1 visit(s). Discharge Date: Please see the following information for a summary of their discharge status. Goals Goal 1:: Patient will be I with HEP and progression Goal 2:: Patient will report no dural s/s Goal 3:: Patient will return to all normal ADL's and recreational activities without pain Plan Plan: Extension Bias D/C Information d/c sentence: If there are questions or concerns regarding this patient's physical therapy, please feel free to call me at [phone]. Thank you for the referral of this patient. Sincerely, Tahira Washington, WILNERT Balance/Gait/Functional tests Balance/Special Test Scores Oswestry Low Back Score: 10
== END 2025-01-07 19:00 | disposition home or self-care (01) ==
LOC: PT 06:51
PROVIDERS: PCP Internal Medicine; Visit Provider Student in an Organized Health Care Education/Training Program
DX: M54.30 Sciatica, unspecified side (principal)
CPT/HCPCS: 97162

== ENCOUNTER → 2025-02-05 | Outpatient (CLI) | payer OTHER, SELFPAY ==
[2025-02-05 13:05] LABS: Follicle Stimulating Hormone 2.9 mIU/mL
[2025-02-06 04:07] LABS: PROGESTERONE 7.2 ng/mL (.)
[2025-02-08 12:08] LABS: Testosterone, % Free 2.44 % (0.50-2.80); Testosterone, Free 0.12 ng/dL (0.10-0.85)
== END | disposition home or self-care (01) ==
PROVIDERS: PCP Internal Medicine; Referring Provider Physician Assistant; Visit Provider Physician Assistant
DX: N92.6 Irregular menstruation, unspecified (principal); F32.81 Premenstrual dysphoric disorder; R00.2 Palpitations; K58.0 Irritable bowel syndrome with diarrhea; B37.82 Candidal enteritis
CPT/HCPCS: 36415; 82627; 82670; 83001; 83002; 84144; 84270; 84402; 84403; 82626

== ENCOUNTER → 2025-02-21 | Outpatient (CLI) | payer OTHER, SELFPAY ==
--- OUTSIDE RECORDS SUMMARY | 2025-02-21 16:38 | XMS RPT_ITS | CCD ---
Author Organization [facility] CliniSyms Care Team Providers Care Speech Pathologist Name Role Phone Elda Joy Unavailable Lennie Corado Unavailable Emick, Jeffy Unavailable Unavailable Slarb, Leidy Unavailable Unavailable Long, Nan L Unavailable Unavailable Fast, Tiny A Unavailable Franchesca Wilcox Unavailable Unavailable Unavailable Unavailable Sulma Fierro Unavailable Unavailable Tirso Carrasco Unavailable Unavailable Franchesca Cleary Unavailable Unavailable Tirso Beckford Unavailable Unavailable LongKevinn L Unavailable Unavailable Manchak, Ginger Unavailable Unavailable Elda Joy DO Unavailable Lennie Corado Unavailable Franchesca Cleary RN Unavailable Unavailable RAFY Levine LPN Unavailable Unavailable Fast DO, Tiny A Unavailable Emick, Paulding Unavailable Unavailable Manchak CHEMICAL MAKER, Ginger Unavailable Unavailable Unavailable Unavailable Fast DO, Tiny A Unavailable Dr. Elda Joy Primary Care Provider [phone] Dr. Elda Joy Referring Provider Dr. Winnie Rose Attending Provider [phone] Dr. Elda Joy Primary Care Provider [phone] Dr. Elda Joy Referring Provider [phone] Khari METER/RELAY TECHNICIAN, LOGAN Najera Attending Provider [phone] Dr. Elda Joy DO Primary Care Provider PIYUSH IRIZARRY Attending Provider PIYUSH IRIZARRY Referring Provider Referred, Self Attending Provider Unavailable Referred, Self Referring Provider Unavailable Dr. Hadley Kat DO Attending Provider Elda Joy Primary Care Unavailable Hadley Kat Attending Unavailable Benita, Elda Referring Unavailable Benita, Elda Primary Care Unavailable Khari METER/RELAY TECHNICIAN, Dania Attending Unavailable Referred, Self Attending Unavailable Benita, Elda Primary Care Unavailable Referred, Self Referring Unavailable Benita, Elda Primary Care Unavailable ZUPKE, PIYUSH Referring Unavailable ZUPKE, PIYUSH Attending Unavailable BenitaElda sidhu Primary Care Unavailable Assessment, Health Risk Referring Unavaila ble Assessment, Health Risk Attending Unavaila ble Benita, Elda Primary Care Unavailable ZUPKE, PIYUSH Referring Unavailable ZUPKE, PIYUSH Attending Unavailable Allergies Allergy Classification Reported Allergen(s) Allergy Type Date of Onset Reaction(s) Facility (17 sources) Ciprofloxacin; Translations: [Cipro *FLUOROQUINOLONES *] Drug Allergy 2 Rash [facility] Work Phone: Comment on above: Rash (6 sources) Ciprofloxacin; Translations: [ciprofloxacin HCl] Drug Allergy 2 Rash [facility] (1 source) Ciprofloxacin Drug Allergy 5 [facility] Repository Medications Current Medications Medication Drug Class(es) Dates Sig (Normalized) Sig (Original) cholecalciferol 0.05 mg oral capsule (17 sources) Vitamin D Start: 02-09-2018 take 1 capsule by mouth once daily Cholecalciferol (Vitamin D3) 2,000 unit capsule Active 2000 U PO DAILY February 09, 2018 12:00am End: 04-15-2015 take 1 capsule by mouth once daily VITAMIN D, 1000UNIT (Oral Capsule) 1 cap qd for 0 days Refills: 0 Ordered: 15-Apr-2015 Leidy Lynn LPN End : 15-Apr-2015 Discontinued Magnesium (5 sources) Start: 04-20-2020 take 1 tablet by brenda once daily Magnesium 200 MG tablet Active 200 mg PO DAILY April 20, 2020 1:00am Start: 04-20-2020 take 200 mg by mouth once salty y Magnesium Active 200 MG PO DAILY April 20, 2020 12:00am Start: 04-20-2020 take 200 mg by mouth once salty y Magnesium Active 200 MG PO DAILY April 20, 2020 1:00am minoxidil 2.5 mg oral tablet (1 source) Arteriolar Vasodilator Start: 07-18-2024 take 1 tablet by mouth once daily Minoxidil 2.5 mg tablet Active 2.5 mg PO daily July 18, 2024 1:00am Multivitamin preparation (16 sources) Start: 02-09-2018 take 1 tablet by mouth once daily Multivitamin Active 1 TABLET PO DAILY February 08, 2018 11:00pm Start: 02-09-2018 take 1 tablet by brenda th once daily Multivitamin Active 1 TABLET PO DAILY February 09, 2018 12:00am End: 04-15-2015 take 1 tablet by mouth once daily MULTIVITAMIN (PO Tab) 1 tab qd for 0 days Refills: 0 Ordered: 15-Apr-2015 Leidy Lynn LPN End : 15-Apr-2015 Discontinued Comments: This order discontinued per [facility]. Comment on above: This order discontin ued per -[facility]. Vitamin B Complex (4 sources) Start: 04-20-2020 Vitamin B Complex Active 1 EACH PO DAILY April 20, 2020 12:00am Start: 04-20-2020 Vitamin B Comp rosario Active 1 EACH PO DAILY April 20, 2020 1:00am Vitamin B Complex 1 EACH capsule (1 source) Start: 04-20-2020 Vitamin B Comp rosario 1 EACH capsule Active 1 NMA PO DAILY April 20, 2020 1:00am Completed/Discontinued Medications Medication Drug Class(es) Dates Sig (Normalized) Sig (Original) acetaminophen 325 mg / oxyCODONE hydrochloride 5 mg oral tablet (5 sources) Opioid Agonist Start: 11-26-2015 End: 02-09-2018 Oxycodone-Acetamino phen 1 TABLET tablet Discontinued 1 - 2 {tbl} PO EVERY 4 HOURS NEEDED as needed for Moderate Pain (4-5/10) 30 0 November 26, 2015 12:00am February 09, 2018 10:21am Start: 11-26-2015 End: 02-09-2018 take 1 tablet by mouth every four hours as needed Oxycodone-Acetaminophen Discontinued 1 - 2 TABLET PO EVERY 4 HOURS NEEDED November 26, 2015 12:00am February 09, 2018 10:21am albuterol 0.83 mg/ml inhalation solution (12 sources) beta2-Adrenergic Agonist Start: 02-13-2018 End: 04-25-2019 Albuterol Sulfate (2.5 MG/3ML) 0.083% Inhalation Nebulization Solution 1 (one) Milliliter q6h prn for 30 days Quantity: 1 {Box} Refills: 5 Ordered: 25-Apr-2019 Franchesca Cleary RN Start : 13-Feb-2018 End : 25-Apr-2019 Inactive amoxicillin 500 mg / clavulanate 125 mg oral tablet (19 sources) Penicillin-class Antibacterial Start: 07-18-2023 End: 07-18-2024 Amoxicillin-Pot Clavulanate (Augmentin) 500-125 mg tablet Discontinued 1 {tbl} PO TWICE A DAY July 18, 2023 9:14am July 18, 2024 8:05am Start: 04-25-2023 End: 07-17-2023 Amoxicillin-Pot Clavulanate (Augmentin) 500-125 mg tablet Discontinued 1 {tbl} PO TWICE A DAY April 25, 2023 1:00am July 17, 2023 9:10am Start: 08-12-2021 End: 07-14-2022 Amoxicillin-Pot Clavulanate 500-125 mg tablet Discontinued 1 {tbl} PO TWICE A DAY August 12, 2021 1:00am July 14, 2022 9:52am Start: 08-12-2021 End: 07-14-2022 take 1 tablet by mouth twice daily Amoxicillin-Pot Clavulanate Discontinued 1 TABLET PO TWICE A DAY August 12, 2021 1:00am July 14, 2022 9:52am Start: 04-25-2019 End: 05-05-2019 take 1 tablet by mouth twice daily Augmentin 875-125 MG Oral Tablet 1 (one) Tablet bid for 10 days Quantity: 20 {Tablet} Refills: 0 Ordered: 25-Apr-2019 Franchesca Cleary RN Start : 25-Apr-2019 End : 05-May-2019 Inactive Comments: with probiotic Start: 08-29-2016 End: 09-08-2016 take 1 tablet by mouth twice daily Augmentin 875-125 MG Oral Tablet 1 (one) Tablet bid for 10 days Quantity: 20 {Tablet} Refills: 0 Ordered: 29-Aug-2016 Tiny Pritchard DO Start : 29-Aug-2016 End : 08-Sep-2016 Inactive Comments: with probiotic Comment on above: with probiotic azithromycin 250 mg oral tablet (2 sources) Macrolide Antimicrobial Start: 06-11-19 22 Zithromax Z-Randy 250 MG Oral Tablet uad Tablet 2 today then 1 qd until gone for 0 days Quantity: 1 {Packet} Refills: 0 Ordered: 11-Jun-2021 RAFY Levine LPN Start : 11-Jun-2021 Active CALCIUM-MAGNESIUM, 750-465MG (Oral Tablet) (12 sources) End: 04-15-20 15 take 1 tablet by mouth once daily CALCIUM-MAGNESIUM, 750-465MG (Oral Tablet) 1 tab qd for 0 days Refills: 0 Ordered: 15-Apr-2015 Lediy Lynn LPN End : 15-Apr-2015 Discontinued Comments: 1000 calcium/500 magnesium Comment on above: 1000 calcium/500 mag nesium citalopram 20 mg oral tablet (4 sources) Serotonin Reuptake Inhibitor Start: 09-01-19 End: 07-18-19 25 take 1 tablet by mouth once daily Citalopram 20 mg tablet Discontinued 20 mg PO DAILY 90 3 September 29, 2022 8:27am July 18, 2024 9:09am copper 313 mg drug implant (7 sources) Copper-containing Intrauterine Device Start: 02-06-20 End: 04-29-20 20 Copper (Paragard T 380a) 380 square mm intrauterine device Discontinued 1 NMA INTRA-UTER ONCE February 06, 2020 12:00am April 29, 2020 9:58am as a single dose Start: 02-06-2020 End: 04-29-2020 Copper (Paragard T 380a) 380 square mm intrauterine device Discontinued 1 DEVICE INTRA-UTER ONCE February 06, 2020 12:00am April 29, 2020 9:58am as a single dose End: 04-15-2015 PARAGARD INTRAUTERINE COPPER (Intrauterine Intrauterine Device) as directed by physican/candy separator enrobing for 0 days Refills: 0 Ordered: 15-Apr-2015 Leidy Lynn LPN End : 15-Apr-2015 Discontinued cyclobenzaprine hydrochloride 10 mg oral tablet (20 sources) Muscle Relaxant Start: 04-30-2018 End: 04-25-2019 Cyclobenzaprine HCl 10 MG Oral Tablet 1 (one) Tablet as needed for 0 days Quantity: 7 {Tablet} Refills: 0 Ordered: 25-Apr-2019 Franchesca Cleary RN Start : 30-Apr-2018 End : 25-Apr-2019 Inactive Comments: Medication taken as needed. seven Start: 03-30-2010 End: 09-25-2013 FLEXERIL, 10MG (Oral Tablet) 1 tab Tablet tid, prn for 0 days Quantity: 30 {Tablet} Refills: 0 Ordered: 08-Jun-2012 Eleanor Obando Start : 30-Mar-2010 End : 25-Sep-2013 Discontinued Comments: This order discontinued per [facility]. Comment on above: This order discontin ued per [facility]. Medication taken as needed. seven docosahexaenoic acid 120 mg / eicosapentaenoic acid 180 mg oral capsule (5 sources) End: 015 take 1 capsule by mouth once daily OMEGA 3, 1000MG (Oral Capsule) 1 cap qd for 0 days Refills: 0 Ordered: 15-Apr-2015 Leidy Lynn LPN End : 15-Apr-2015 Discontinued DULoxetine 30 mg delayed release oral capsule (20 sources) Serotonin and Norepinephrine Reuptake Inhibitor Start: 010 End: 010 take 7 capsules by mouth once daily CYMBALTA, 30MG (Oral Capsule Delayed Release Particles) 1 (one) Capsule DR Part qd for 0 days Quantity: 30 {Capsule_DR_Part} Refills: 4 Ordered: 11-May-2010 Macho Tiny WILKS Start : 11-May-2010 End : 11-May-2010 Discontinued take 1 capsule by mouth once enedina ly CYMBALTA, 20MG (Oral Capsule Delayed Release Particles) 1 cap qd (20 MG) Inactive econazole nitrate 10 mg/ml topical cream (12 sources) Azole Antifungal Start: 08-27-2012 End: 04-15-2015 ECONAZOLE NITRATE, 1% (External Cream) 1 Cream apply twice a day for 0 days Quantity: 60 {grams} Refills: 0 Ordered: 15-Apr-2015 Leidy Lynn LPN Start : 27-Aug-2012 End : 15-Apr-2015 Discontinued escitalopram 20 mg oral tablet (12 sources) Serotonin Reuptake Inhibitor Start: 09-15-2009 End: 09-15-2009 LEXAPRO, 20MG (Oral Tablet) 1 tab Tablet qd for 90 days Quantity: 90 {Tablet} Refills: 3 Ordered: 15-Sep-2009 Tiny Pritchard DO Start : 15-Sep-2009 End : 15-Sep-2009 Discontinued 21 day ethinyl estradiol 0.050058 mg/hr / etonogestrel 0.005 mg/hr vaginal system (10 sources) Progestin, Estrogen Start: 04-29-2020 End: 07-10-2020 Etonogestrel-Ethinyl Estradiol (Nuvaring) 0.12-0.015 mg/24 hr ring Discontinued 1 NMA VAGINAL every 4 weeks 06 07May 01, 2020 12:58pm July 10, 2020 10:17am leave in place for 3 weeks of a 4-week cycle Start: 04-29-2020 End: 07-10-2020 Etonogestrel-Ethinyl Estradi ol (Nuvaring) 0.12-0.015 mg/24 hr ring Discontinued 1 VAG RING VAGINAL every 4 weeks May 01, 2020 12:58pm July 10, 2020 10:17am leave in place for 3 weeks of a 4-week cycle ethinyl estradiol 0.03 mg / norethindrone acetate 1.5 mg oral tablet (5 sources) Estrogen Start: 03-12-2019 End: 02-06-2020 Norethindrone Ac-Eth Estradiol (Loestrin 1.5/30 (21)) 1.5-30 mg-mcg tablet Discontinued 1 {tbl} PO DAILY 01 06March 12, 2019 12:00am February 06, 2020 2:57pm fluconazole 200 mg oral tablet (8 sources) Azole Antifungal Start: 07-05-2023 End: 07-17-2023 take 1 tablet by mouth once daily Fluconazole (Diflucan) 200 mg tablet Discontinued 200 mg PO DAILY 1 July 05, 2023 1:00am July 17, 2023 9:11am Start: 11-17-2022 End: 07-17-2023 take 1 tablet by mouth once Fluconazole (Diflucan) 150 mg tablet Discontinued 150 mg PO ONCE 1 November 17, 2022 12:00am July 17, 2023 9:11am as a single dose Start: 07-24-2019 End: 07-31-2019 take 1 tablet by mouth once daily Diflucan 150 MG Oral Tablet 1 (one) Tablet 1 po qd for 7 days Quantity: 7 {Tablet} Refills: 0 Ordered: 24-Jul-2019 Ginger Vaughn CMA Start : 24-Jul-2019 End : 31-Jul-2019 Inactive FLUoxetine 20 mg oral tablet (12 sources) Serotonin Reuptake Inhibitor Start: 06-30-2014 End: 04-15-2015 take 1 tablet by mouth once daily FLUOXETINE HCL, 20MG (Oral Tablet) 1 (one) Tablet qd for 0 days Quantity: 30 {Tablet} Refills: 3 Ordered: 15-Apr-2015 Leidy Lynn LPN Start : 30-Jun-2014 End : 15-Apr-2015 Discontinued ibuprofen 600 mg oral tablet (5 sources) Nonsteroidal Anti-inflammatory Drug Start: 11-26-2015 End: 02-09-2018 take 1 tablet by mouth every six hours as needed for pain Ibuprofen 600 MG tablet Discontinued 600 mg PO EVERY 6 HOURS NEEDED as needed for Mild Pain (-08/12) 40 0 November 26, 2015 12:00am February 09, 2018 10:21am linseed oil 1000 mg oral capsule (12 sources) End: 04-15-2015 take 1 capsule by mouth once daily FLAX SEED OIL, 1000MG (Oral Capsule) 1 cap qd for 0 days Refills: 0 Ordered: 15-Apr-2015 Leidy Lynn LPN End : 15-Apr-2015 Discontinued methylPREDNISolone 4 mg oral tablet (9 sources) Corticosteroid Start: 06-25-2022 End: 07-14-2022 take 1 tablet by mouth once Methylprednisolone (Medrol (Randy)) 4 mg tablets,dose pack Discontinued 0 PO per package directions 21 0 June 25, 2022 1:00am July 14, 2022 9:52am PO PER PKG DIR Start: 11-08-2019 End: 11-14-2019 take 5 tablets by mouth once methylPREDNISolone 4 MG O ral Tablet Therapy Pack use as directed per instructions in pack for 6 days Quantity: 1 {Package} Refills: 0 Ordered: 08-Nov-2019 Nan Brian RN Start : 08-Nov-2019 End : 14-Nov-2019 Inactive Comments: Do as package or bottle fill, whichever is available -- both scripts sent to cover. Comment on above: Do as package or bot tle fill, whichever is available -- both scripts sent to cover. mometasone furoate 0.05 mg/actuat metered dose nasal spray (12 sources) Corticosteroid Start: 013 End: 013 NASONEX, 50MCG/ACT (Nasal Suspension) 2 (two) Suspension qd for 0 days Quantity: 1 {Suspension} Refills: 0 Ordered: 10-Oct-2012 Macho WILKSTiny Start : 10-Oct-2012 End : 10-Oct-2012 Discontinued Multivitamin tablet (1 source) Start: 018 End: 025 Multivitamin tablet Discontinued 1 {tbl} PO DAILY February 09, 2018 12:00am July 18, 2024 9:10am nitrofurantoin, macrocrystals 25 mg / nitrofurantoin, monohydrate 75 mg oral capsule (14 sources) Nitrofuran Antibacterial Start: 023 End: take 1 capsule by mouth every twelve hours at mealtime Nitrofurantoin Monohyd/M-Cryst (Macrobid) 100 mg capsule Discontinued 100 mg PO Q12H 14 7 0 November 15, 2022 12:00am November 21, 2022 12:00am November 22, 2022 12:04am must administer with a meal/food Start: 05-01-2013 End: 05-11-2013 take 1 capsule by mouth twice daily MACROBID, 100MG (Oral Capsule) 1 Capsule bid for 10 days Quantity: 20 {Capsule} Refills: 0 Ordered: 01-May-2013 Ginger Vaughn CMA Start : 01-May-2013 End : 11-May-2013 Inactive omega-3 acid ethyl esters (long-term) 1000 mg oral capsule (7 sources) End: 04-15-2015 take 1 capsule by mouth once daily OMEGA 3, 1000MG (Oral Capsule) 1 cap qd for 0 days Refills: 0 Ordered: 15-Apr-2015 Slarb Leidy DEJESUS End : 15-Apr-2015 Discontinued omeprazole 20 mg delayed release oral capsule (12 sources) Proton Pump Inhibitor Start: 10-10-2012 End: 10-10-2012 take 1 capsule by mouth once daily OMEPRAZOLE, 20MG (Oral Capsule Delayed Release) 1 (one) Capsule DR qd for 0 days Quantity: 30 {Capsule_DR} Refills: 3 Ordered: 10-Oct-2012 Tiny Pritchard DO Start : 10-Oct-2012 End : 10-Oct-2012 Discontinued PARAGARD INTRAUTERINE COPPER (Intrauterine Intrauterine Device) (7 sources) End: 04-15-2015 PARAGARD INTRAUTERINE COPPER (Intrauterine Intrauterine Device) as directed by physican/candy separator enrobing for 0 days Refills: 0 Ordered: 15-Apr-2015 Leidy Lynn LPN End : 15-Apr-2015 Discontinued PARAGARD INTRAUTERINE COPPER (Intrauterine Intrauterine Device) (3 sources) End: 04-15-2015 PARAGARD INTRAUTERINE COPPER (Intrauterine Intrauterine Device) as directed by physican/candy separator enrobing for 0 days Refills: 0 Ordered: 15-Apr-2015 Leidy Lynn LPN End : 15-Apr-2015 Discontinued Pediatric Multivitamin No.30 (4 sources) Start: 11-23-2015 End: 02-09-2018 Pediatric Multivitamin No.30 Discontinued 3 EACH PO DAILY November 22, 2015 11:00pm February 09, 2018 9:22am Start: 11-23-2015 End: 02-09-2018 Pediatric Multivitamin No.30 Discontinued 3 EACH PO DAILY November 23, 2015 12:00am February 09, 2018 10:22am Pediatric Multivitamin No.30 1 EACH tablet,chewable (1 source) Start: 11-23-2015 End: 02-09-2018 take 1 tablet by mouth once daily Pediatric Multivitamin No.30 1 EACH tablet,chewable Discontinued 3 NMA PO DAILY November 23, 2015 12:00am February 09, 2018 10:22am progesterone 100 mg oral capsule (5 sources) Progesterone Start: 03-12-2019 End: 02-06-2020 take 1 capsule by mouth once daily in the morning Progesterone Micronized 100 mg capsule Discontinued 100 mg PO EVERY MORNING March 12, 2019 12:00am February 06, 2020 2:57pm spironolactone 100 mg oral tablet (12 sources) Aldosterone Antagonist Start: 08-27-2012 End: 08-27-2012 take 1 tablet by mouth once daily ALDACTONE, 100MG (Oral Tablet) 1 Tablet qd for 0 days Quantity: 30 {Tablet} Refills: 0 Ordered: 27-Aug-2012 Tiny Pritchard DO Start : 27-Aug-2012 End : 27-Aug-2012 Discontinued terbinafine 250 mg oral tablet (12 sources) Allylamine Antifungal Start: 10-10-2012 End: 10-10-2012 take 1 tablet by mouth once daily LAMISIL, 250MG (Oral Tablet) 1 Tablet qd for 0 days Quantity: 30 {Tablet} Refills: 2 Ordered: 10-Oct-2012 Tiny Pritchard DO Start : 10-Oct-2012 End : 10-Oct-2012 Discontinued Zinc (5 sources) Start: 04-20-2020 End: 07-18-2024 take 1 tablet by mouth once daily Zinc 50 MG tablet Discontinued 50 mg PO DAILY April 20, 2020 1:00am July 18, 2024 9:10am Start: 04-20-2020 take 50 mg by mouth once daily Zinc Active 50 MG PO DAILY April 20, 2020 12:00am Start: 04-20-2020 take 50 mg by mouth once daily Zinc Active 50 MG PO DAILY April 20, 2020 1:00am NEGATED: Highlighted row has not occurred!drug or medication (3 sources) No Known Histori mara Medications NEGATED: Highlighted row has not occurred!No Known Historical Medications (1 source) No Known Histori mara Medications Problems Active Problems Problem Classification Problem Date Documented Date Episodic/Chronic Abdominal pain (20 sources) Abdominal pain; Translations: [Pain in pelvis] 08-27-2015 Episodic Anxiety disorders (20 sources) Anxiety; Translations: [Anxiety] 12-10-2018 Chronic Cardiac dysrhythmias (12 sources) Palpitations; Translations: [Palpitations] 08-27-2015 Episodic Deficiency and other anemia (20 sources) Anemia; Translations: [Anemia, unspecified] Resolved: 10-26-2009 04-20-2015 Episodic Esophageal disorders (20 sources) Gastroesophageal reflux disease; Translations: [GERD (gastroesophageal reflux disease)] 08-27-2015 Chronic Comment on above: better Headache; including migraine (20 sources) Headache; Translations: [Headache] Resolved: 10-26-2009 10-26-2009 Episodic Comment on above: better Hemorrhoids (12 sources) Hemorrhoids; Translations: [Hemorrhoids] 08-27-2015 Episodic Immunizations and screening for infectious disease (20 sources) Need for prophylactic vaccination and inoculation against diptheria-tetanus- 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 anxiety/irritab le loloestrin 24. Mood disorders (20 sources) Mood disorders Mycoses (20 sources) Onychomycosis; Translations: [Tinea corporis] Resolved: 09-17-2014 08-27-2015 Episodic Nausea and vomiting (20 sources) Nausea; Translations: [Nausea] Resolved: 09-17-2014 09-17-2014 Episodic Nutritional deficiencies (20 sources) Vitamin D deficiency; Translations: [VITAMIN D DEFICIENCY] 12-10-2018 Chronic Comment on above: chronic stable-mercy nue present regimen Other connective tissue disease (15 sources) Spasm; Translations: [Muscle spasm] 08-27-2015 Episodic Other connective tissue disease (3 sources) Pain in right foot; Translations: [Right foot pain] 04-25-2019 Episodic Other endocrine disorders (20 sources) Hypoglycemia; Translations: [Hypoglycemia] 12-13-2018 Chronic Other female genital disorders (2 sources) Premenstrual tension syndrome; Translations: [Premenstrual tension syndrome] 09-29-2022 Chronic Other female genital disorders (1 source) Premenstrual tension syndrome; Translations: [Premenstrual tension syndromes] 09-29-2022 Chronic Other female genital disorders (14 sources) Disorder of female genital organs; Translations: [Other specified conditions associated with female genital organs and menstrual cycle] 08-27-2015 Episodic Other lower respiratory disease (20 sources) Cough; Translations: [Cough] 08-27-2015 Episodic Other nutritional; endocrine; and metabolic disorders (20 sources) Weight loss; Translations: [Weight loss] 08-27-2015 Episodic Comment on above: stabilized Other skin disorders (20 sources) Night sweats; Translations: [Night sweats] Resolved: 06-15-2010 06-30-2015 Episodic Other skin disorders (20 sources) Acne; Translations: [Acne] 08-27-2015 Episodic Comment on above: controlled Other skin disorders (13 sources) Loss of hair; Translations: [Hair loss] 08-25-2016 Episodic Other upper respiratory infections (6 sources) Sinusitis; Translations: [Sinusitis] 04-25-2019 Chronic Other upper respiratory infections (20 sources) Sinusitis; Translations: [Acute pharyngitis] Resolved: 09-17-2014 02-16-2010 Episodic Comment on above: likely viral Residual codes; unclassified (20 sources) Family history of ischemic heart disease; Translations: [Family history of ischemic heart disease] 08-27-2015 Episodic Residual codes; unclassified (10 sources) History of appendectomy; Translations: [Appendectomy] 08-27-2015 Episodic Residual codes; unclassified (8 sources) Needs influenza immunization; Translations: [Need for prophylactic vaccination and inoculation against influenza (Renamed from Need for immunization against influenza)] 03-27-2019 Episodic Residual codes; unclassified (3 sources) Body mass index 20-24 - normal; Translations: [BMI 22.0-22.9, adult] 04-25-2019 Episodic Residual codes; unclassified (3 sources) Non-smoker; Translations: [Non-smoker] 04-25-2019 Episodic Unclassified (20 sources) Unclassified (20 sources) Muscle spasm (728.85) Unclassified (9 sources) Depression/Anxiety (300.4) Urinary tract infections (1 source) Urinary tract infectious disease; Translations: [Urinary tract infection, site not specified] 11-15-2022 Episodic Past or Other Problems Problem Classification Problem Date Documented Da te Episodic/Chronic Headache; including migraine (5 sources) Headache; including migraine Other connective tissue disease (10 sources) Pain in right foot; Translations: [Right foot pain] 10-15-2018 Residual codes; unclassified (5 sources) Failed attempted procedure; Translations: [Procedure and treatment not carried out for other reasons] Onset: 04-05-2020 07-10-2020 Episodic Comment on above: removed under anesth esia Unclassified (11 sources) Need for prophylactic DTaP and polio vaccine (V06.3) Unclassified (20 sources) Screening-pulmonary TB (V74.1) Unclassified (12 sources) Pregnancies (); Translations: [Pregnancies ()] 08-27-2015 Comment on above: 0 Unclassified (10 sources) Tuberculosis screening status; Translations: [Screening-pulmonar y TB] 08-27-2015 Unclassified (20 sources) Unspecified Diagnosis Resolved: 10-23-2020 02-13-2018 Unclassified (11 sources) Hair loss Unclassified (11 sources) Lymphadenopathy, cervical Unclassified (11 sources) Dysthymic Unclassified (11 sources) Right foot pain Unclassified (7 sources) Body mass index 20-24 - normal; Translations: [BMI 22.0-22.9, adult] 04-25-2019 Unclassified (7 sources) Non-smoker; Translations: [Non-smoker] 04-25-2019 Unclassified (4 sources) Vaginal yeast infection Results Test Name Value Interpretation Reference Range Facility L3410.9994on 02-10-2025 [facility] Misc. 2 COMMENT Normal . [facility] Comment on above: Order Comment: 90651 2DIHYDROTESTONE Result Comment: Test Ordered: [id number] Dihydrotestosterone Dihydrotestosterone 4.7 ng/dL ES Reference Range: . This test was developed and its performance characteristics determined by [facility]. It has not been cleared or approved by the Food and Drug Administration. Reference Range: Adult Female: 4 - 22 Performed at: [facility] [address] [place] [id number] Pewter Finisher: Ky Romero MD, Phone: [phone] Performed at: [address] [id number] Pewter Finisher: Robin Velazquez PhD, Phone: [phone] Performed By: #### L 3300.1750, L3300.1500, L3100.5310, L3100.5055, L3100.5060, L801.2600, L3410.9994, L3410.9992 ####[facility] [address] [facility]. [place], [place], [id number] DHEA Sulfateon 02-08-2025 DHEA SULFATE 104.0 ug/dL Normal 57.3-279.2 [facility] Comment on above: Order Comment: N Performed By: #### L 3300.1750, L3300.1500, L3100.5310, L3100.5055, L3100.5060, L801.2600, L3410.9994, L3410.9992 ####[facility] [address] [place], [place], [address] L3410.9992on 02-08-2025 [facility]. COMMENT Normal . [facility] Comment on above: Order Comment: 57378 4ESTRONE Result Comment: Test Ordered: [id number] Estrone, Serum Estrone, Serum 30 pg/mL Reference Range: 27-231 Range Adult (Premenopausal) 27 - 231 Menstrual Cycle (1-10 days) 19 - 149 Menstrual Cycle (11-20 days) 32 - 176 Menstrual Cycle (21-30 days) 37 - 200 Performed at: [address] [id number] Pewter Finisher: Steven Russo MD, Phone: [phone] Performed at: [address] [id number] Pewter Finisher: Robin Velazquez PhD, Phone: [phone] Performed By: #### L 3300.1750, L3300.1500, L3100.5310, L3100.5055, L3100.5060, L801.2600, L3410.9994, L3410.9992 ####[facility] [address] [place], [place], [address] Sex Hormone-binding Globulin on 02-08-2025 SHBG 44.8 nmol/L Normal 24.6-122.0 [facility] Comment on above: Result Comment: Perf ormed at: [address] [id number] Pewter Finisher: Robin Velazquez PhD, Phone: [phone] Performed at: [address] [id number] Pewter Finisher: Steven Russo MD, Phone: [phone] Performed By: #### L 3300.1750, L3300.1500, L3100.5310, L3100.5055, L3100.5060, L801.2600, L3410.9994, L3410.9992 ####[facility] [address] [place], [address] Testosterone, Total / Freeon 02-08-2025 TESTOSTER,FREE 0.12 ng/dL Normal 0.10-0.85 [facility] Comment on above: Order Comment: N Performed By: #### L 3300.1750, L3300.1500, L3100.5310, L3100.5055, L3100.5060, L801.2600, L3410.9994, L3410.9992 ####[facility] [address] [place], [place], [address] TESTOSTER,TOTAL 5 ng/dL Low 8-60 [facility] Comment on above: Order Comment: N Performed By: #### L 3300.1750, L3300.1500, L3100.5310, L3100.5055, L3100.5060, L801.2600, L3410.9994, L3410.9992 ####[facility] [address] [place], [place], [address] TESTOSTERONE,%F 2.44 Normal 0.50-2.80 [facility] Comment on above: Order Comment: N Performed By: #### L 3300.1750, L3300.1500, L3100.5310, L3100.5055, L3100.5060, L801.2600, L3410.9994, L3410.9992 ####[facility] [address] [place], [place], [address] PROGESTERONE 4317on 02-07-20 25 PROGESTERONE 7.2 ng/mL Normal . [facility] Comment on above: Order Comment: N Result Comment: Foll icular phase 0.1 - 0.9 Luteal phase 1.8 - 23.9 Ovulation phase 0.1 - 12.0 First trimester 11.0 - 44.3 Second trimester 25.4 - 83.3 Third trimester 58.7 - 214.0 Postmenopausal 0.0 - 0.1 Performed at: [address] [id number] Pewter Finisher: Robin Velazquez PhD, Phone: [phone] Performed By: #### L 3300.1750, L3300.1500, L3100.5310, L3100.5055, L3100.5060, L801.2600, L3410.9994, L3410.9992 ####[facility] [address], [address] Estradiolon 02-05-2025 ESTRADIOL 120.0 pg/mL Normal [facility] Comment on above: Result Comment: FEMA LES ADULT FEMALE: Premenopausal: 15-350 pg/mL(E2 levels vary widely through the menstrual cycle) Postmenopausal: <10 pg/mL MAYANK STAGES MEAN AGE REFERENCE RANGES Stage I(>14 days and prepubertal) 7.1 years Undetectable-20 pg/mLL Stage II 10.5 years Undetectable-24 pg/mL Stage III 11.6 years Undetectable-60 pg/mL Stage IV 12.3 years 15-85 pg/mL Stage V 14.5 years 15-350 pg/mL Puberty onset (transition from Mayank stage I to Mayank stage II) occurs for girls at a median age of 10.5 (/- 2) years. There is evidence that it may occur up to 1 year earlier in obese girls and in girls. Progression through Mayank stages is variable. Mayank stage V (adult) should be reached by age 18. Performed By: #### L 3300.1750, L3300.1500, L3100.5310, L3100.5055, L3100.5060, L801.2600, L3410.9994, L3410.9992 ####[facility] [address] [place], [address] FSH and LHon 02-05-2025 FSH 2.9 mIU/mL Normal [facility] Comment on above: Result Comment: FEMA LE: Follicular: 1.4 - 18.1 mIU/mL Midcycle: 3.4 - 33.4 mIU/mL Luteal: 1.5 - 9.1 mIU/mL Post Menopause: 23.0 - 116.3 mIU/mL MALE: 1.4 - 18.1 mIU/mL Performed By: #### L 3300.1750, L3300.1500, L3100.5310, L3100.5055, L3100.5060, L801.2600, L3410.9994, L3410.9992 ####[facility] [address] [place], [place], [address] LH 3.4 mIU/mL Normal [facility] Comment on above: Result Comment: FEMA LE: Follicular: 1.9-12.5 mIU/mL Midcycle: 8.7-76.3 mIU/mL Luteal: 0.5-16.9 mIU/mL Post Menopause: 15.9-54.0 mIU/mL MALE: 20-70 Years: 1.5-9.3 mIU/mL >70 Years: 3.1-34.6 mIU/mL Performed By: #### L 3300.1750, L3300.1500, L3100.5310, L3100.5055, L3100.5060, L801.2600, L3410.9994, L3410.9992 ####[facility] [address] [place], [place], [id number] Inital Evaluation (1) - PTon 01-07-2025 Inital Evaluation (1) - PT [facility] [place] [address] / REHABILITATION SERVICES INITIAL EVALUATION MR#: [id number] Acct: [id number] Name: FRANCHESCA WILCOX Rep #: [id number] : 1985 39 From: Tahira Washington DPT Referring Dr.: Dr. Hadley Kat DO Status: REG RCR Insurance: [facility] INSURANCE Patient's Visit Information Visit Information Visit Information: FRANCHESCA WILCOX is a 39 year old F referred to Physical Therapy by Dr. Hadley Kta DO with a diagnosis of Sciatica. Date of Evaluation: 01/07/25 Physical Therapist: Tahira Washington DPT Visit Plan Frequency: 2x /Week Duration: 4 Weeks Plan: Extension Bias Subjective Subjective: The patient reports that she is having pain down both legs- not on both sides at the same time-its radiating down from the buttocks and then it starts again at the knee and radiates down to the toes. Did dry needling- then drove on vacation and it was okay. She can crossfit and then gets in the ice bath and its okay then she gets in the car and its miserable. She is driving 30 min total for work and then to/from kids school- about an hour a day. 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 Nothing else aggravates it but sitting. Pain is aggravating ache. Some N/T but not pins and needles. Sleep: disturbed occasionally. Eases: dry needling, standing. Once she stands it takes anywhere from 5-30 min to go away. She tried to do the lumbar roll and has been watching posture and that has helped. On the steroid dose pack which has helped but she has not done a lot currently. x-rays- negative PMHx/Meds: progesterone, monoxidil Objective Objective: Posture: fair throughout- can correct with verbal cues Gait: no deviation noted SLS: 30 sec without LOB ROM: WNL in all planes Sensation: WNL to gross touch bilateral Strength: Core: fair, Hip: 4+/5 with the exception of abd: 4/5, Knee: 5/5, Ankle: 5/5 Flex: HS: mild, Gastroc: mild Palpation: mild tenderness to piriformis Special Test: SLR right produces dural s/s, repetitive flexion increases s/s in the left calf, extension decreases s/s Balance/Special Test Scores Oswestry Low Back Score: 10 Goals Goal 1:: Patient will be I with HEP and progression Goal Time Frame: 4-6 Weeks Goal 2:: Patient will report no dural s/s Goal Time Frame: 4-6 Weeks Goal 3:: Patient will return to all normal ADL's and recreational activities without pain Goal Time Frame: 4-6 Weeks Rehabilitation Potential Physical Therapy Diagnosis: Patient presents with decreased core strength/stabilization and muscular endurance leading to poor posture and increased pain with prolonged sitting Rehabilitation Potential: Good Anticipated Interventions Therapeutic Exercise to Include: Strength training, Power training, Endurance training, Balance training, Coordination, Agility training, Body mechanics, Postural training, Flexibilty training, Gait and locomotor training, Neuromotor development, Dynamic Lumbar Stabilization, Alan Exercises and Scapular Strength/Stabilization Manual Therapy Techniques to Include: Functional dry needling and Soft tissue mobilization TENS: Yes Cryotherapy (ice pack, ice massage): Yes Thermo therapy (hot pack): Yes Ultrasound (thermal/non thermal): Yes Text: Thank you for the opportunity to evaluate your patient. For Medicare and Medicare HMO plans, please review the plan of care and approve it. It will need to be FAXED BACK to us at [phone] for Medicare purposes. For Medicare only, by signing this I certify the plan of care. Please let me know if there are questions or concerns regarding this plan of care. Physician Signature: Date: _ 01/07/25 0745 CC: Dr. Elda Joy, DO; Dr. Hadley Kat DO ELR Signed Normal [facility] DHEA Sulfateon 10-22-2024 DHEA SULFATE 153.0 ug/dL Normal 57.3-279.2 [facility] Comment on above: Order Comment: N Performed By: #### L 3300.1500, L501.9985, L3410.9992, L3300.1750, L801.2600, L3100.5060, L803.0600, L100.0100, L3100.5310, L3100.7870, L3300.3500, L3100.5055 ####[facility] [address] [place], [place], [address] Insulin Levelon 10-22-2024 INSULIN,FASTING 8.1 uIU/mL Normal 2.6-24.9 [facility] Comment on above: Performed By: #### L 3300.1500, L501.9985, L3410.9992, L3300.1750, L801.2600, L3100.5060, L803.0600, L100.0100, L3100.5310, L3100.7870, L3300.3500, L3100.5055 ####[facility] [address] [place], [place], [address] Sex Hormone-binding Globulin on 10-22-2024 SHBG 61.7 nmol/L Normal 24.6-122.0 [facility] Comment on above: Result Comment: Perf ormed at: - [facility] [id number] Pewter Finisher: Robin Velazquez PhD, Phone: [phone] Performed at: - [facility] [id number] Pewter Finisher: Steven Russo MD, Phone: [phone] Performed By: #### L 3300.1500, L501.9985, L3410.9992, L3300.1750, L801.2600, L3100.5060, L803.0600, L100.0100, L3100.5310, L3100.7870, L3300.3500, L3100.5055 ####[facility] [address] [place], [place], [address] Testosterone, Total / Freeon 10-22-2024 TESTOSTER,FREE 0.50 ng/dL Normal 0.10-0.85 [facility] Comment on above: Order Comment: N Performed By: #### L 3300.1500, L501.9985, L3410.9992, L3300.1750, L801.2600, L3100.5060, L803.0600, L100.0100, L3100.5310, L3100.7870, L3300.3500, L3100.5055 ####[facility] [address] [place], [place], [address] TESTOSTER,TOTAL 26 ng/dL Normal 8-60 [facility] Comment on above: Order Comment: N Performed By: #### L 3300.1500, L501.9985, L3410.9992, L3300.1750, L801.2600, L3100.5060, L803.0600, L100.0100, L3100.5310, L3100.7870, L3300.3500, L3100.5055 ####[facility] [address] [place], [address] TESTOSTERONE,%F 1.92 Normal 0.50-2.80 [facility] Comment on above: Order Comment: N Performed By: #### L 3300.1500, L501.9985, L3410.9992, L3300.1750, L801.2600, L3100.5060, L803.0600, L100.0100, L3100.5310, L3100.7870, L3300.3500, L3100.5055 ####[facility] [address] [place], [address] L3410.9992on 10-10-2024 [facility] Misc. COMMENT Normal . [facility] Comment on above: Order Comment: 67133 0DHEA UNCONJUGATED TIGER RF Result Comment: Test Ordered: [id number] DHEA, Serum Test(s) 431875-Coybrzzfqjelistkdgnork (DHEA) was developed and its performance characteristics determined by [facility]. It has not been cleared or approved by the Food and Drug Administration. Dehydroepiandrosterone (DHEA) 286 ng/dL Reference Range: 31-701 Performed at: - [facility] [id number] Pewter Finisher: Steven Russo MD, Phone: [phone] Performed at: [address] [id number] Pewter Finisher: Robin Velazquez PhD, Phone: [phone] Performed By: #### L 3300.1500, L501.9985, L3410.9992, L3300.1750, L801.2600, L3100.5060, L803.0600, L100.0100, L3100.5310, L3100.7870, L3300.3500, L3100.5055 ####[facility] [address] [place], [place], [address] L3410.9992on 10-08-2024 [facility]. COMMENT Normal . [facility] Comment on above: Order Comment: [id number] 4 ESTRONE TIGER RF Result Comment: Test Ordered: [id number] Estrone, Serum Estrone, Serum 46 pg/mL Reference Range: 27-231 Range Adult (Premenopausal) 27 - 231 Menstrual Cycle (1-10 days) 19 - 149 Menstrual Cycle (11-20 days) 32 - 176 Menstrual Cycle (21-30 days) 37 - 200 Performed at: [address] [id number] Pewter Finisher: Steven Russo MD, Phone: [phone] Performed at: [address] [id number] Pewter Finisher: Robin Velazquez PhD, Phone: [phone] Performed By: #### L 3410.9992 #### [facility] [address] [place], [place], [address] L3410.9992on 10-07-2024 [facility]. COMMENT Normal . [facility] Comment on above: Order Comment: [id number] 2DIHYDROTESTOSTERONE SERUM FRZ Result Comment: Test Ordered: [id number] Dihydrotestosterone Dihydrotestosterone 11 ng/dL Reference Range: . This test was developed and its performance characteristics determined by [employer]. It has not been cleared or approved by the Food and Drug Administration. Reference Range: Adult Female: 4 - 22 Performed at: [facility] [address] [place] [id number] Pewter Finisher: Manoj Glasgow MD, Phone: [phone] Performed at: [address] [id number] Pewter Finisher: Robin Velazquez PhD, Phone: [phone] Performed By: #### L 3410.9992 ####[facility] [address] [place], [place], [address] CRP, High Sensitivity 452911 on 10-04-2024 CRP, HIGH SENS 1.01 mg/L Normal 0.00-3.00 [facility] Comment on above: Result Comment: Rela tive Risk for Future Cardiovascular Event Low <1.00 Average 1.00 - 3.00 High >3.00 Performed By: #### L 3300.1500, L501.9985, L3410.9992, L3300.1750, L801.2600, L3100.5060, L803.0600, L100.0100, L3100.5310, L3100.7870, L3300.3500, L3100.5055 #### [facility] [address] [place], [place], [address] L803.0600on 10-04-2024 HOMOCYSTEINE 8.8 umol/L Normal 0.0-14.5 [facility] Comment on above: Performed By: #### L 3300.1500, L501.9985, L3410.9992, L3300.1750, L801.2600, L3100.5060, L803.0600, L100.0100, L3100.5310, L3100.7870, L3300.3500, L3100.5055 #### [facility] [address] [place], [place], [address] PROGESTERONE 4317on 10-05-19 25 PROGESTERONE 10.7 ng/mL Normal . [facility] Comment on above: Order Comment: N Result Comment: Foll icular phase 0.1 - 0.9 Luteal phase 1.8 - 23.9 Ovulation phase 0.1 - 12.0 First trimester 11.0 - 44.3 Second trimester 25.4 - 83.3 Third trimester 58.7 - 214.0 Postmenopausal 0.0 - 0.1 Performed at: [facility] [address] [id number] Pewter Finisher: Robin Velazquez PhD, Phone: [phone] Performed By: #### L 3300.1500, L501.9985, L3410.9992, L3300.1750, L801.2600, L3100.5060, L803.0600, L100.0100, L3100.5310, L3100.7870, L3300.3500, L3100.5055 #### [facility] [address] [place], [address] Absolute lymphocyte countOrd ered By: PIYUSH BROOKS on 10-03-2024 Lymphocytes Auto (Unsp spec) [#/Vol] 1.73 10*3/uL 0.83-4.51 [facility] Absolute neutrophil countOrd ered By: PIYUSH BROOKS on 10-03-2024 Neutrophils (Bld) [#/Vol] 3.4 10*3/uL 2.0-7.7 [facility] Automated lymphocyte count a s percentage of total leukocytesOrdered By: PIYUSH BROOKS on 10-03-2024 Lymphocytes/100 WBC Auto (Unsp spec) 29.5 % 19-41 [facility] Basophil percentageOrdered B y: PIYUSH CECILIA on 10-03-2024 Basophils/100 WBC (Bld) 1.0 % 0-1 [facility] C-reactive protein measureme nt by high sensitivity methodOrdered By: PIYUSH CECILIA on 10-03-2024 C-reactive protein measurement by high sensitivity method 1.01 mg/L 0.00-3.00 [facility] Comment on above: Relative Risk for Fu ture Cardiovascular Event Low <1.00 Average 1.00 - 3.00 High >3.00 CBC W/Diff, Automatedon Absolute Lymph 1.73 X10 3/uL Normal 0.83-4.51 [facility] Comment on above: Performed By: #### L 3300.1500, L501.9985, L3410.9992, L3300.1750, L801.2600, L3100.5060, L803.0600, L100.0100, L3100.5310, L3100.7870, L3300.3500, L3100.5055 #### [facility] [address] [place], [address] Absolute Neut 3.4 X10 3/uL Normal 2.0-7.7 [facility] Comment on above: Performed By: #### L 3300.1500, L501.9985, L3410.9992, L3300.1750, L801.2600, L3100.5060, L803.0600, L100.0100, L3100.5310, L3100.7870, L3300.3500, L3100.5055 #### [facility] [address] [place], [address] (801 Basophils/100 WBC (Bld) 1.0 % Normal 0-1 [facility] Comment on above: Performed By: #### L 3300.1500, L501.9985, L3410.9992, L3300.1750, L801.2600, L3100.5060, L803.0600, L100.0100, L3100.5310, L3100.7870, L3300.3500, L3100.5055 #### [facility] [address] [place], [address] Eosinophils/100 WBC (Bld) 3.1 % Normal 0-5 [facility] Comment on above: Performed By: #### L 3300.1500, L501.9985, L3410.9992, L3300.1750, L801.2600, L3100.5060, L803.0600, L100.0100, L3100.5310, L3100.7870, L3300.3500, L3100.5055 #### [facility] [address] [place], [address] (879) Erythrocyte distribution width (RBC) [Ratio] 12.8 % Normal 11.6-14.6 [facility] Comment on above: Performed By: #### L 3300.1500, L501.9985, L3410.9992, L3300.1750, L801.2600, L3100.5060, L803.0600, L100.0100, L3100.5310, L3100.7870, L3300.3500, L3100.5055 #### [facility] [address] [place], [address] Hematocrit (Bld) [Volume fraction] 38.5 % Normal 37-47 [facility] Comment on above: Performed By: #### L 3300.1500, L501.9985, L3410.9992, L3300.1750, L801.2600, L3100.5060, L803.0600, L100.0100, L3100.5310, L3100.7870, L3300.3500, L3100.5055 #### [facility] [address] [place], [address] Hemoglobin (Bld) [Mass/Vol] 13.5 g/dL Normal 12.0-15.0 [facility] Comment on above: Performed By: #### L 3300.1500, L501.9985, L3410.9992, L3300.1750, L801.2600, L3100.5060, L803.0600, L100.0100, L3100.5310, L3100.7870, L3300.3500, L3100.5055 #### [facility] [address] [place], [place], [address] IG% 0.200 Normal 0.0-0.9 [facility] Comment on above: Result Comment: IG% - Immature Granulocytes (promyelocytes, myelocytes and metamyelocytes) > 1% indicates that a LEFT SHIFT is Present. Performed By: #### L 3300.1500, L501.9985, L3410.9992, L3300.1750, L801.2600, L3100.5060, L803.0600, L100.0100, L3100.5310, L3100.7870, L3300.3500, L3100.5055 #### [facility] [address] [place], [address] Lymphocytes/100 WBC (Bld) 29.5 % Normal 19-41 [facility] Comment on above: Performed By: #### L 3300.1500, L501.9985, L3410.9992, L3300.1750, L801.2600, L3100.5060, L803.0600, L100.0100, L3100.5310, L3100.7870, L3300.3500, L3100.5055 #### [facility] [address] [place], [address] MCH (RBC) [Entitic mass] 29.6 pg Normal 27.0-32.0 [facility] Comment on above: Performed By: #### L 3300.1500, L501.9985, L3410.9992, L3300.1750, L801.2600, L3100.5060, L803.0600, L100.0100, L3100.5310, L3100.7870, L3300.3500, L3100.5055 #### [facility] [address] [place], [address] MCHC (RBC) [Mass/Vol] 35.1 g/dL Normal 32-36 [facility] Comment on above: Performed By: #### L 3300.1500, L501.9985, L3410.9992, L3300.1750, L801.2600, L3100.5060, L803.0600, L100.0100, L3100.5310, L3100.7870, L3300.3500, L3100.5055 #### [facility] [address] [place], [address] MCV (RBC) [Entitic vol] 84.4 fL Normal 81-99 [facility] Comment on above: Performed By: #### L 3300.1500, L501.9985, L3410.9992, L3300.1750, L801.2600, L3100.5060, L803.0600, L100.0100, L3100.5310, L3100.7870, L3300.3500, L3100.5055 #### [facility] [address] [facility] [place], [address] Monocytes/100 WBC (Bld) 8.7 % Normal 0-10 [facility] Comment on above: Performed By: #### L 3300.1500, L501.9985, L3410.9992, L3300.1750, L801.2600, L3100.5060, L803.0600, L100.0100, L3100.5310, L3100.7870, L3300.3500, L3100.5055 #### [facility] [address] [place], [address] Neutrophils/100 WBC (Bld) 57.5 % Normal 47-70 [facility] Comment on above: Performed By: #### L 3300.1500, L501.9985, L3410.9992, L3300.1750, L801.2600, L3100.5060, L803.0600, L100.0100, L3100.5310, L3100.7870, L3300.3500, L3100.5055 #### [facility] [address] [place], [address] Nucleated RBC (Bld) [#/Vol] 0 10*3/uL Normal 0-5 [facility] Comment on above: Performed By: #### L 3300.1500, L501.9985, L3410.9992, L3300.1750, L801.2600, L3100.5060, L803.0600, L100.0100, L3100.5310, L3100.7870, L3300.3500, L3100.5055 #### [facility] [address] [place], [address] Platelet mean volume (Bld) [Entitic vol] 10.3 fL Normal 6.2-12.0 [facility] Comment on above: Performed By: #### L 3300.1500, L501.9985, L3410.9992, L3300.1750, L801.2600, L3100.5060, L803.0600, L100.0100, L3100.5310, L3100.7870, L3300.3500, L3100.5055 #### [facility] [address] [place], [address] Platelets (Bld) [#/Vol] 263 10*3/uL Normal 150-450 [facility] Comment on above: Performed By: #### L 3300.1500, L501.9985, L3410.9992, L3300.1750, L801.2600, L3100.5060, L803.0600, L100.0100, L3100.5310, L3100.7870, L3300.3500, L3100.5055 #### [facility] [address] [place], [address] RBC (Bld) [#/Vol] 4.56 10*6/uL Normal 4.2-5.4 [facility] Comment on above: Performed By: #### L 3300.1500, L501.9985, L3410.9992, L3300.1750, L801.2600, L3100.5060, L803.0600, L100.0100, L3100.5310, L3100.7870, L3300.3500, L3100.5055 #### [facility] [address] [place], [address] RDW SD 39.6 fl Normal 35.1-43.9 [facility] Comment on above: Performed By: #### L 3300.1500, L501.9985, L3410.9992, L3300.1750, L801.2600, L3100.5060, L803.0600, L100.0100, L3100.5310, L3100.7870, L3300.3500, L3100.5055 #### [facility] [address] [place], [address] WBC (Bld) [#/Vol] 5.9 10*3/uL Normal 4.4-11.0 [facility] Comment on above: Performed By: #### L 3300.1500, L501.9985, L3410.9992, L3300.1750, L801.2600, L3100.5060, L803.0600, L100.0100, L3100.5310, L3100.7870, L3300.3500, L3100.5055 #### [facility] [address] [place], [address] Eosinophil percentageOrdered By: PIYUSH BROOKS on 10-03-2024 Eosinophils/100 WBC (Bld) 3.1 % 0-5 [facility] Erythrocyte distribution wid th ratioOrdered By: PIYUSH BROOKS on 10-03-2024 Erythrocyte distribution width (RBC) [Ratio] 12.8 % 11.6-14.6 [facility] Erythrocyte distribution wid th standard deviationOrdered By: ST[facility]I on 10-03-2024 Erythrocyte distribution width (RBC) [Ratio] 39.6 fl 35.1-43.9 [facility] Estradiolon 10-03-2024 ESTRADIOL 157.0 pg/mL Normal [facility] Comment on above: Result Comment: FEMA LES ADULT FEMALE: Premenopausal: 15-350 pg/mL(E2 levels vary widely through the menstrual cycle) Postmenopausal: <10 pg/mL MAYANK STAGES MEAN AGE REFERENCE RANGES Stage I(>14 days and prepubertal) 7.1 years Undetectable-20 pg/mLL Stage II 10.5 years Undetectable-24 pg/mL Stage III 11.6 years Undetectable-60 pg/mL Stage IV 12.3 years 15-85 pg/mL Stage V 14.5 years 15-350 pg/mL Puberty onset (transition from Mayank stage I to Mayank stage II) occurs for girls at a median age of 10.5 (/- 2) years. There is evidence that it may occur up to 1 year earlier in obese girls and in girls. Progression through Mayank stages is variable. Mayank stage V (adult) should be reached by age 18. Performed By: #### L 3300.1500, L501.9985, L3410.9992, L3300.1750, L801.2600, L3100.5060, L803.0600, L100.0100, L3100.5310, L3100.7870, L3300.3500, L3100.5055 #### [facility] [address] [place], [address] FSH and LHon 10-03-2024 FSH 3.2 mIU/mL Normal [facility] Comment on above: Result Comment: FEMA LE: Follicular: 1.4 - 18.1 mIU/mL Midcycle: 3.4 - 33.4 mIU/mL Luteal: 1.5 - 9.1 mIU/mL Post Menopause: 23.0 - 116.3 mIU/mL MALE: 1.4 - 18.1 mIU/mL NORMAL REFERENCE RANGES FEMALE FOLLICULAR 2.3 - 12.6 mIU/mL MID-CYCLE PEAK 5.2 - 17.5 mIU/mL LUTEAL 1.7 - 12.9 mIU/mL POST-MENOPAUSAL ON MHT 5.9 - 72.8 mIU/mL NOT ON MHT 12.7 - 132.2 mlU/mL MALE 0.7 - 10.8 mIU/mL Performed By: #### L 3300.1500, L501.9985, L3410.9992, L3300.1750, L801.2600, L3100.5060, L803.0600, L100.0100, L3100.5310, L3100.7870, L3300.3500, L3100.5055 #### [facility] [address] [place], [address] LH 5.4 mIU/mL Normal [facility] Comment on above: Result Comment: FEMA LE: Follicular: 1.9-12.5 mIU/mL Midcycle: 8.7-76.3 mIU/mL Luteal: 0.5-16.9 mIU/mL Post Menopause: 15.9-54.0 mIU/mL MALE: 20-70 Years: 1.5-9.3 mIU/mL >70 Years: 3.1-34.6 mIU/mL Performed By: #### L 3300.1500, L501.9985, L3410.9992, L3300.1750, L801.2600, L3100.5060, L803.0600, L100.0100, L3100.5310, L3100.7870, L3300.3500, L3100.5055 #### [facility] [address] [place], [address] Free testosterone percentage Ordered By: PIYUSH BROOKS on 10-03-2024 Testosterone Free/Testosterone.tot al [Mass fraction] 1.92 % 0.50-2.80 [facility] Hematocrit Auto (Bld) [Volum e fraction]Ordered By: PIYUSH BROOKS on 10-03-2024 Hematocrit (Bld) [Volume fraction] 38.5 % 37-47 [facility] Hemoglobin A1con 10-03-2024 HbA1c (Bld) [Mass fraction] 4.8 % Normal <=5.6 [facility] Comment on above: Result Comment: Norm al < 5.7 % Prediabetic 5.7 - 6.4 % Diabetic >or= 6.5 % Please note range changes. Performed By: #### L 3300.1500, L501.9985, L3410.9992, L3300.1750, L801.2600, L3100.5060, L803.0600, L100.0100, L3100.5310, L3100.7870, L3300.3500, L3100.5055 #### [facility] [address] [place], [address] Hemoglobin A1c percentageOrd ered By: PIYUSH BROOKS on 10-03-2024 HbA1c (Bld) [Mass fraction] 4.8 % <5.7 [facility] Comment on above: Normal < 5.7 % Predi abetic 5.7 - 6.4 % Diabetic >or= 6.5 % Please note range changes. Hemoglobin measurementOrdere d By: PIYUSH BROOKS on 10-03-2024 Hemoglobin (Bld) [Mass/Vol] 13.5 g/dL 12.0-15.0 [facility] Immature granulocytes/100 WB C Auto (Bld)Ordered By: PIYUSH BROOKS on 10-03-2024 Immature granulocytes/100 WBC (Bld) 0.200 % 0.0-0.9 [facility] Comment on above: IG% - Immature Granu locytes (promyelocytes, myelocytes and metamyelocytes) > 1% indicates that a LEFT SHIFT is Present. LH ser/plasOrdered By: LYDIA BROOKS on 10-03-2024 Lutropin Qn 5.4 m[IU]/mL [facility] Comment on above: FEMALE:Follicular: 1 .9-12.5 mIU/mLMidcycle: 8.7-76.3 mIU/mLLuteal: 0.5-16.9 mIU/mLPost Menopause: 15.9-54.0 mIU/mLMALE:20-70 Years: 1.5-9.3 mIU/mL>70 Years: 3.1-34.6 mIU/mL MCV (mean corpuscular volume ) determinationOrdered By: PIYUSH BROOKS on 10-03-2024 MCV (RBC) [Entitic vol] 84.4 fL 81-99 [facility] Mean corpuscular hemoglobin (MCH) determinationOrdered By: PIYUSH BROOKS on 10-03-2024 MCH (RBC) [Entitic mass] 29.6 pg 27.0-32.0 [facility] Mean corpuscular hemoglobin concentration (MCHC) determinationOrdered By: PIYUSH BROOKS on 10-03-2024 MCHC (RBC) [Mass/Vol] 35.1 g/dL 32-36 [facility] Mean platelet volume determi nationOrdered By: PIYUSH BROOKS on 10-03-2024 Platelet mean volume (Bld) [Entitic vol] 10.3 fL 6.2-12.0 [facility] Monocyte percentageOrdered B y: PIYUSH BROOKS on 10-03-2024 Monocytes/100 WBC (Bld) 8.7 % 0-10 [facility] Neutrophil percentageOrdered By: PIYUSH BROOKS on 10-03-2024 Neutrophils/100 WBC (Bld) 57.5 % 47-70 [facility] Nucleated red blood cell per centageOrdered By: PIYUSH BROOKS on 10-03-2024 Nucleated RBC/100 WBC (Bld) [Ratio] 0 % 0-5 [facility] Platelet countOrdered By: LAY BROOKS on 10-03-2024 Platelets (Bld) [#/Vol] 263 10*3/uL 150-450 [facility] RBC Auto (Bld) [#/Vol]Ordere d By: PIYUSH BROOKS on 10-03-2024 RBC (Bld) [#/Vol] 4.56 10*6/uL 4.2-5.4 [facility] Serum or plasma estradiol me asurement after follitropin dose (mass/volume)Ordered By: PIYUSH BROOKS on 10-03-2024 E2 post dose follitropin [Mass/Vol] 157.0 pg/mL [facility] Comment on above: FEMALES ADULT FEMALE : Premenopausal: 15-350 pg/mL(E2 levels vary widely through the menstrual cycle) Postmenopausal: <10 pg/mL MAYANK STAGES MEAN AGE REFERENCE RANGES Stage I(>14 days and prepubertal) 7.1 years Undetectable-20 pg/mLL Stage II 10.5 years Undetectable-24 pg/mL Stage III 11.6 years Undetectable-60 pg/mL Stage IV 12.3 years 15-85 pg/mL Stage V 14.5 years 15-350 pg/mL Puberty onset (transition from Mayank stage I to Mayank stage II) occurs for girls at a median age of 10.5 (/- 2) years. There is evidence that it may occur up to 1 year earlier in obese girls and in girls.Progression through Mayank stages is variable. Mayank stage V (adult) should be reached by age 18. Serum or plasma free testost erone measurement (mass/volume)Ordered By: PIYUSH BROOKS on 10-03-2024 Testosterone Free [Mass/Vol] 0.50 ng/dL 0.10-0.85 [facility] Serum or plasma insulin rodrigo urement (mass/volume)Ordered By: PIYUSH BROOKS on 10-03-2024 Insulin [Mass/Vol] 8.1 uIU/mL 2.6-24.9 [facility] Serum or plasma sex hormone binding globulin measurement (moles/volume)Ordered By: PIYUSH BROOKS on 10-03-2024 Sex hormone binding globulin [Moles/Vol] 61.7 nmol/L 24.6-122.0 [facility] Comment on above: Performed at: [address] [id number] Director: Robin Velazquez PhD, Phone: [phone] at: [facility] [id number] Director: Steven Russo MD, Phone: [phone] Testosterone, totalOrdered B y: PIYUSH BROOKS on 10-03-2024 Testosterone [Mass/Vol] 26 ng/dL 8-60 [facility] White blood cell (WBC) count Ordered By: PIYUSH BROOKS on 10-03-2024 WBC (Bld) [#/Vol] 5.9 10*3/uL 4.4-11.0 [facility] Fishing Hand Office Visit Reporton 07-18-2024 Fishing Hand Office Visit Report [facility] [address], [address] [place] [address] OFFICE VISIT Date of Service: 07/18/24 MR#: [id number] Acct: [id number] Name: FRANCHESCA WILCOX Rep #: [id number] : 1985 Provider: LOGAN fitzpatrick Age/Sex: 39/F Location: [facility] Status: Signed Intake Vital Signs 07/17/23 08:11 07/18/24 08:01 07/18/24 08:11 Height 5 ft 4 in 5 ft 4 in 5 ft 4 in Weight: 141 lb 6 oz BMI 24.3 BP 118/72 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) Chief Complaint: Annual Cloth Tester Required: No Is patient in pain?: No Allergies ciprofloxacin (From Cipro) Allergy (Verified 07/18/24 08:01) Rash ciprofloxacin HCl (From Cipro) Allergy (Verified 07/18/24 08:01) Rash Medications ???Medication ???Instructions ???Recorded ???Confirmed ???Type cholecalciferol (vitamin D3) 50 2,000 unit PO DAILY 02/09/1807/18 History mcg (2,000 unit) capsule magnesium 200 mg tablet 200 mg PO DAILY 04/20/20 07/18/24 History vitamin B complex 1 ea PO DAILY 04/20/20 07/18/24 Hi story minoxidil 2.5 mg tablet 2.5 mg PO QDAY 07/18/24 07/18/24 H istory Is last menstrual period known: Yes Last Menstrual Period: 07/12/24 Post menopausal: No Patient : No : No [facility] Medical History Attempted IUD removal, unsuccessful ( 04/29/20) Abnormal Pap smear of cervix Surgical History S/P appendectomy S/P History of colposcopy Family History Grandmother Breast cancer Grandmother Heart disease Grandfather Heart disease Social History Smoking Status: Never smoker alcohol intake: current details: occasionally substance use type: does not use caffeine: Yes what type of physical activity do you participate in: weight training frequency: 3-4 times per week seatbelt use: always do you feel safe at home: Yes additional social history: [employer] 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 Date Name GA/Weeks Outcome Route Bth Weight Gen Labor Lgth Anesthesia Del Locatn Provider FOB 06/19/11 Nick 40 live - full term 9lbs 2oz Male spinal [facility] Dr. Glenna Richardson 11/24/15 Van 39 live - full term 7lbs 7oz Male spinal [facility] Dr. Adams Richardson Delivery Date: 06/19/11 Last Updated by: Aminata Angelo No issues during . Csection due to labor stalling. Delivery Date: 11/24/15 Last Updated by: Aminata Angelo No issues during or delivery. HPI Encounter for routine gynecological examination Details: FRANCHESCA WILCOX is a 39 year old who presents for annual exam. Denies concerns. Last PAP: 2022 History of abnormal PAP: colp >10yr. No intervention Last mammogram: age 41 Other preventative health care screenings: [facility] Female Reproductive History Last Menstrual Period: 07/12/24 Cycle Length: 21-35 Questions: metorrhagia: No, sexually active: Yes, dyspareunia: No and PCB: No ROS Const Constitutional: Denies fatigue, weight gain or weight loss Cardio Card: Denies chest pain Resp Resp: Denies cough or dyspnea on exertion GI GI: Denies abdominal pain, bloating, change in stool character, constipation or vomiting : Reports as per HPI; Denies difficulty voiding, pelvic pain, urinary frequency, urinary incontinence, urinary urgency, vaginal discharge or vaginal pruritus Exam Const General: cooperative, healthy appearing, no acute distress and well developed Orientation: alert, oriented to person and oriented to place HENND Head: normal to inspection Neck Neck: normal visual inspection Thyroid: thyroid normal Lymphatic: no lymphadenopathy noted Chest Breast inspection: normal inspection of the breasts and normal inspection of the axillae Breast palpation: normal palpation of the breasts, normal palpation of the axillae and no axillary lymphadenopathy Resp Effort Inspection: normal respiratory effort GI Palpation: soft, no masses and nontender Rectal Exam: deferred External Female Exam: normal external appearance and normal appearance of the urethra Urethra: normal appearance of the urethra and normal palpation Speculum Exam - Vagina: normal appearance of the vagina and normal vaginal discharge Speculum Exam - Cervix: normal appearance of the cervix Bimanual Exam- Vagina Uterus: normal bimanual exam, uterine size normal, uterine shape normal and non-tender Bimanua (more content not included)... Normal [facility] Basophil percentageOrdered B y: Krupa Carrizales on 11-15-2022 Basophil percentage 50-100 SEEN /hpf 0-5 [facility] Bilirubin Test strip Ql (U)O rdered By: Krupa Carrizales on 11-15-2022 Bilirubin Ql (U) Negative Negative [facility] Ketones Test strip Ql (U)Ord ered By: Krupa Carrizales on 11-15-2022 Ketones Ql (U) Negative Negative [facility] Mucus LM Ql (Urine sed)Order ed By: Krupa Carrizales on 11-15-2022 Mucus Ql (Urine sed) 1+ /hpf [facility] Nitrite Test strip Ql (U)Ord ered By: Krupa Carrizales on 11-15-2022 Nitrite Ql (U) Positive Negative [facility] Protein Test strip Ql (U)Ord ered By: Krupa Carrizales on 11-15-2022 Protein Ql (U) 30 mg/dl Negative [facility] Squamous epithelial cells de tection in urine sediment by light microscopyOrdered By: Krupa Carrizales on 11-15-2022 Epithelial cells.squamous LM Ql (Urine sed) 0-5 SEEN /hpf 5-10 [facility] Urine blood detectionOrdered By: Krupa Carrizales on 11-15-2022 RBC Ql (U) 150 /ul Negative [facility] RBC Ql (U) 0-5 SEEN /hpf 0-5 [facility] Urine clarityOrdered By: Jung Carrizales on 11-15-2022 Clarity (U) Cloudy Clear [facility] Urine color determinationOrd ered By: Krupa Carrizales on 11-15-2022 Color (U) Yellow Yellow [facility] Urine glucose detectionOrder ed By: Krupa Carrizales on 11-15-2022 Glucose Ql (U) Normal mg/dl Normal [facility] Urine leukocyte esterase det ection by dipstickOrdered By: Krupa Carrizales on 11-15-2022 Leukocyte esterase Test strip Ql (U) 500 /ul Negative [facility] Urine pHOrdered By: Krupa Carrizales on 11-15-2022 pH (U) 6.0 [pH] 5.0 - 8.0 [facility] Urine sediment bacteria coun t by microscopy (number/high power field)Ordered By: Krupa Carrizales on 11-15-2022 Bacteria LM.HPF (Urine sed) [#/Area] 2 /[HPF] None Seen [facility] Urine specific gravity measu rementOrdered By: Krupa Carrizales on 11-15-2022 Specific gravity (U) [Rel density] 1.015 1.002-1.03 0 [facility] Urobilinogen Auto test strip Ql (U)Ordered By: Krupa Carrizales on 11-15-2022 Urobilinogen Ql (U) Normal mg/dl Normal [facility] Absolute lymphocyte countOrd ered By: Dr. Rose on 07-29-2022 Lymphocytes Auto (Unsp spec) [#/Vol] 1.71 10*3/uL 0.83-4.51 [facility] Basophil percentageOrdered B y: Dr. Rose on 07-29-2022 Basophils/100 WBC (Bld) 0.9 % 0-1 [facility] Cholesterol [Mass/Vol] 127 mg/dL <200 [facility] Comment on above: <200 mg/dL Desirable 200-240 mg/dL Borderline >240 mg/dL High Risk Eosinophils/100 WBC (Bld) 2.1 % 0-5 [facility] Glucose [Mass/Vol] 91 mg/dL 74-106 [facility] Neutrophils (Bld) [#/Vol] 3.4 10*3/uL 2.0-7.7 [facility] Neutrophils/100 WBC (Bld) 59.1 % 47-70 [facility] Triglyceride [Mass/Vol] 81 mg/dL <199 [facility] Comment on above: The drugs N-Acetylcy steine and Metamizole may falsely depress this assay.Serum Triglycerides Reference Interval Normal <150 mg/dL Borderline high 150 - 199 mg/dL High 200 - 499 mg/dL Very High > or = 500 mg/dL WBC (Bld) [#/Vol] 5.8 10*3/uL 4.4-11.0 [facility] Blood erythrocytes count (nu mber/volume)Ordered By: Dr. Rose on 07-29-2022 RBC (Bld) [#/Vol] 4.57 10*6/uL 4.2-5.4 [facility] Blood hemoglobin measurement (mass/volume)Ordered By: Dr. Rose on 07-29-2022 Hemoglobin (Bld) [Mass/Vol] 13.2 g/dL 12.0-15.0 [facility] Blood lymphocytes/100 leukoc ytesOrdered By: Dr. Rose on 07-29-2022 Lymphocytes/100 WBC (Bld) 29.6 % 19-41 [facility] Blood monocytes/100 leukocyt esOrdered By: Dr. Rose on 07-29-2022 Monocytes/100 WBC (Bld) 8.0 % 0-10 [facility] Blood platelet mean volumeOr dered By: Dr. Rose on 07-29-2022 Platelet mean volume (Bld) [Entitic vol] 10.7 fL 6.2-12.0 [facility] Determination of erythrocyte mean corpuscular volume (MCV)Ordered By: Dr. Rose on 07-29-2022 MCV (RBC) [Entitic vol] 86.9 fL 81-99 [facility] Hematocrit Auto (Bld) [Volum e fraction]Ordered By: Dr. Rose on 07-29-2022 Hematocrit (Bld) [Volume fraction] 39.7 % 37-47 [facility] - Chemistry and C hemistry - challengeOrdered By: Dr. Rose on 07-29-2022 Free T4 [Mass/Vol] 1.01 ng/dL 0.76-1.46 [facility] Laboratory - Hematology and Cell countsOrdered By: Dr. Rose on 07-29-2022 Erythrocyte distribution width (RBC) [Entitic vol] 41.2 fL 35.1-43.9 [facility] Erythrocyte distribution width (RBC) [Ratio] 13.0 % 11.6-14.6 [facility] Immature granulocytes/100 WBC (Bld) 0.300 % 0.0-0.9 [facility] Comment on above: IG% - Immature Granu locytes (promyelocytes, myelocytes and metamyelocytes) > 1% indicates that a LEFT SHIFT is Present. MCH (RBC) [Entitic mass] 28.9 pg 27.0-32.0 [facility] Nucleated RBC/100 WBC (Bld) [Ratio] 0 % 0-5 [facility] MCHC Auto (RBC) [Mass/Vol]Or dered By: Dr. Rose on 07-29-2022 MCHC (RBC) [Mass/Vol] 33.2 g/dL 32-36 [facility] No Panel InformationOrdered By: Dr. Rose on 07-29-2022 Thyroid Stimulating Hormone (TSH) 2.15 uIU/mL 0.358-3.74 [facility] Platelets bldOrdered By: Dr. Rose on 07-29-2022 Platelets (Bld) [#/Vol] 306 10*3/uL 150-450 [facility] Serum or plasma cholesterol in HDL measurement (mass/volume)Ordered By: Dr. Rose on 07-29-2022 Cholesterol in HDL [Mass/Vol] 53 mg/dL >40 [facility] Comment on above: The drugs N-Acetylcy steine and Metamizole may falsely depress this assay. Reference Range HDL <40 mg/dL Low HDL Cholesterol HDL >or= 60 mg/dL High HDL Cholesterol Serum or plasma cholesterol in VLDL measurement (mass/volume)Ordered By: Dr. Rose on 07-29-2022 Cholesterol in VLDL [Mass/Vol] 16 mg/dL 5-40 [facility] Serum or plasma low density lipoprotein (LDL) cholesterol measurement (mass/volume)Ordered By: Dr. Rose on 07-29-2022 Cholesterol in LDL [Mass/Vol] 58 mg/dL 0-130 [facility] Whole blood hemoglobin A1c/t otal hemoglobin ratio (mass fraction)Ordered By: Dr. Rose on 07-29-2022 HbA1c (Bld) [Mass fraction] 4.6 % 3.8-5.6 [facility] Comment on above: Normal < 5.7 % Predi abetic 5.7 - 6.4 % Diabetic >or= 6.5 % Please note range changes. Cervical or vagninal specime n microscopic examination by cytology stain (reported asOrdered By: Dr. Rose on 07-14-2022 Cytology report Cyto stain Doc (Cvx/Vag) Comment . [facility] Comment on above: The Pap smear is a s creening test designed to aid in thedetection of premalignant and malignant conditions of theuterine cervix. It is not a diagnostic procedure andshould not be used as the sole means of detecting cervicalcancer. Both false-positive and false-negative reports dooccur. Detection in cervical specim en of any of human papilloma virus (HPV) 16, 18, 31, 33,Ordered By: Dr. Rose on 07-14-2022 HPV 16+18+31+33+35+39+45+ 51+52+56+58+59+66+68 DNA Probe+sig amp Ql (Cvx) Negative Negative [facility] Comment on above: This nucleic acid am plification test detects fourteen high- risk HPV types (16,18,31,33,35,39,45,51,52,56,58,59,66,68)without differentiation. Laboratory - CytologyOrdered By: Dr. Rose on 07-14-2022 Yarn Comber Cyto stain Nom (Cvx/Vag) [ID] Comment . [facility] Comment on above: Senia Perea, Cyto technologist (ASCP) Laboratory - Miscellaneous t estsOrdered By: Dr. Rose on 07-14-2022 Service comment (Unsp spec) [Interp] Comment . [facility] Comment on above: This liquid based Th inPrep(R) pap test was screened withthe use of an image guided system. Service comment (Unsp spec) [Interp] . . [facility] Liquid-based cerv Pap + CT/G C by ELA w reflex to high-risk HPV for ASCUSOrdered By: Dr. Rose on 07-14-2022 Cytology report Cyto stain.thin prep Doc (Cvx/Vag) Comment . [facility] Comment on above: Criteria not met, HP V Genotype not performed.Performed at: [facility] - [facility] [id number] Director: Annemarie Niño MD, Phone: [phone] at: =[facility] - [facility] [address] [id number] Director: Annemarie Niño MD, Phone: [phone] No Panel InformationOrdered By: Dr. Rose on 07-14-2022 Pathology report final diagnosis Narrative Comment . [facility] Comment on above: NEGATIVE FOR INTRAEP ITHELIAL LESION OR MALIGNANCY. CALCIFEDIOL (51712)Ordered B y: Water Taxi Operator on 12-13-2018 25-Hydroxyvitamin D2+25-Hydroxyvitamin D3 [Mass/Vol] 56.3 ng/mL Normal 30.0-100.0 [facility] Work Phone: Comment on above: Vitamin D deficiency has been defined by the [place] of[employer]icine and an Endocrine Society practice guideline as alevel of serum 25-OH vitamin D less than 20 ng/mL (1,2).The Endocrine Society went on to further define vitamin Dinsufficiency as a level between 21 and 29 ng/mL (2).1. IOM ([place] of [employer]). 2010. Dietary reference intakes for calcium and D. [place]: The National Academies Press.2. Nolberto MF, Isabel MOLINA, Mario ALVAREZ, et al. Evaluation, treatment, and prevention of vitamin D deficiency: an Endocrine Society clinical practice guideline. JCEM. 2010; 96(7):1911-30. PATIENT WAS FASTINGP ERFORMED BY: [employer] LabPeopleGoal Tmvcdq[address] [employer] [place] [id number] BY: [employer] [address] [id number] CBC, PLATELETS & MANUAL DIFF (96161)Ordered By: Water Taxi Operator on 12-13-2018 Basophils (Bld) [#/Vol] 0.0 {x10E3/uL} Normal 0.0-0.2 [facility] Work Phone: Comment on above: PATIENT WAS FASTINGP ERFORMED BY: [facility] Ztuwof12[address] [employer] [place] [id number] BY: [employer] [address] [id number] Basophils (Bld) [#/Vol] 0.0 10*3/uL Normal 0.0-0.2 [facility]; [facility] Work Phone: Comment on above: PATIENT WAS FASTINGP ERFORMED BY: [employer] LabMimosa Systemsrp Fxtldu2606 Marroquin RoadDublin [place] [id number] BY: [employer] [id number] Basophils/100 WBC (Bld) 0 % Normal [facility] Work Phone: Comment on above: PATIENT WAS FASTINGP ERFORMED BY: [employer] [facility]People[facility] Mswcdm4746 Marroquin RoadDublin [place] [id number] BY: [address] [id number] Eosinophils (Bld) [#/Vol] 0.1 {x10E3/uL} Normal 0.0-0.4 [facility] Work Phone: Comment on above: PATIENT WAS FASTINGP ERFORMED BY: LabCoSaint Clare's Hospital at DenvilleKerhwj2168 [facility] [id number] BY: [address] [id number] Eosinophils (Bld) [#/Vol] 0.1 10*3/uL Normal 0.0-0.4 [facility]; [facility] Work Phone: Comment on above: PATIENT WAS FASTINGP ERFORMED BY: PAUL [facility] [id number] BY: [address] [id number] Eosinophils/100 WBC (Bld) 2 % Normal [facility] Work Phone: Comment on above: PATIENT WAS FASTINGP ERFORMED BY: LabTaylor V[place] [id number] [facility] [id number] BY: [address] [id number] Erythrocyte distribution width (RBC) [Ratio] 13.6 % Normal 12.3-15.4 [facility] Work Phone: Comment on above: PATIENT WAS FASTINGP ERFORMED BY: LabCoSaint Clare's Hospital at DenvilleWwcuoc4613 [facility] [id number] BY: [address] [id number] Hematocrit (Bld) [Volume fraction] 38.1 % Normal 34.0-46.6 [facility] Work Phone: Comment on above: PATIENT WAS FASTINGP ERFORMED BY: [facility] Nrmrlc0684 [facility] [id number] BY: [address] [id number] Hemoglobin (Bld) [Mass/Vol] 12.9 g/dL Normal 11.1-15.9 [facility] Work Phone: Comment on above: PATIENT WAS FASTINGP ERFORMED BY: PAUL LabVicky PazTcpbwt6558 [facility] [id number] BY: [address] [id number] Immature granulocytes (Bld) [#/Vol] 0.0 {x10E3/uL} Normal 0.0-0.1 [facility] Work Phone: Comment on above: PATIENT WAS FASTINGP ERFORMED BY: PAUL LabVicky PazUbdfub2850 [facility] [id number] BY: [address] [id number] Immature granulocytes (Bld) [#/Vol] 0.0 10*3/uL Normal 0.0-0.1 [facility]; [facility] Work Phone: Comment on above: PATIENT WAS FASTINGP ERFORMED BY: PAUL LabCotamela PazNwdatd2718 [facility] [id number] BY: [address] [id number] Immature granulocytes/100 WBC (Bld) 0 % Normal [facility] Work Phone: Comment on above: PATIENT WAS FASTINGP ERFORMED BY: PAUL LabMid [facility] Nuxvxh9268 [facility] [id number] BY: [address] [address] [id number] Lymphocytes (Bld) [#/Vol] 2.0 {x10E3/uL} Normal 0.7-3.1 [facility] Work Phone: Comment on above: PATIENT WAS FASTINGP ERFORMED BY: PAUL LabCo Atnage2927 [facility] [id number] BY: [address] [id number] Lymphocytes (Bld) [#/Vol] 2.0 10*3/uL Normal 0.7-3.1 [facility]; [facility] Work Phone: Comment on above: PATIENT WAS FASTINGP ERFORMED BY: LabTaylor V[place] [id number] [facility] [id number] BY: [address] [id number] Lymphocytes/100 WBC (Bld) 28 % Normal [facility] Work Phone: Comment on above: PATIENT WAS FASTINGP ERFORMED BY: Lab[address] [id number] BY: [address] [id number] MCH (RBC) [Entitic mass] 28.4 pg Normal 26.6-33.0 [facility] Work Phone: Comment on above: PATIENT WAS FASTINGP ERFORMED BY: LabTaylor [place] 5574970 [facility] [id number] BY: [address] [id number] MCHC (RBC) [Mass/Vol] 33.9 g/dL Normal 31.5-35.7 [facility] Internal Medicine Work Phone: Comment on above: PATIENT WAS FASTINGP ERFORMED BY: LabTaylor [place] 5574970 [facility] [id number] BY: [address] [id number] MCV (RBC) [Entitic vol] 84 fL Normal 79-97 [facility] Work Phone: Comment on above: PATIENT WAS FASTINGP ERFORMED BY: LabTaylor [place] 5574970 [facility] [id number] BY: [address] [id number] Monocytes (Bld) [#/Vol] 0.5 {x10E3/uL} Normal 0.1-0.9 [facility] Work Phone: Comment on above: PATIENT WAS FASTINGP ERFORMED BY: PAUL [facility] Uypwji2826 [address] [facility] [id number] BY: LabCo[address] [id number] Monocytes (Bld) [#/Vol] 0.5 10*3/uL Normal 0.1-0.9 [facility]; [facility] Work Phone: Comment on above: PATIENT WAS FASTINGP ERFORMED BY: PAUL [facility] Lwqgxw8709 [address] [facility] [id number] BY: LabCo[address] [id number] Monocytes/100 WBC (Bld) 7 % Normal [facility] Work Phone: Comment on above: PATIENT WAS FASTINGP ERFORMED BY: PAUL [facility] Qwjycr6931 [facility] [id number] BY: LabCo[address] [id number] Neutrophils (Bld) [#/Vol] 4.5 {x10E3/uL} Normal 1.4-7.0 [facility] Work Phone: Comment on above: PATIENT WAS FASTINGP ERFORMED BY: PAUL [facility] Orqkzn6655 [facility] [id number] BY: LabCo[address] [id number] Neutrophils (Bld) [#/Vol] 4.5 10*3/uL Normal 1.4-7.0 [facility]; [facility] Work Phone: Comment on above: PATIENT WAS FASTINGP ERFORMED BY: CB [facility] Vigvom0980 [address] [facility] [id number] BY: Lab[address] [id number] Neutrophils/100 WBC (Bld) 63 % Normal [facility] Work Phone: Comment on above: PATIENT WAS FASTINGP ERFORMED BY: PAUL [facility] Wgdyzq5711 [facility] [id number] BY: [facility] [address] [id number] Platelets (Bld) [#/Vol] 277 {x10E3/uL} Normal 150-450 [facility] Work Phone: Comment on above: PATIENT WAS FASTINGP ERFORMED BY: PAUL [facility] Dhegzy6086 [facility] [id number] BY: [facility] [address] [id number] Platelets (Bld) [#/Vol] 277 10*3/uL Normal 150-450 [facility]; [facility] Internal Medicine Work Phone: Comment on above: PATIENT WAS FASTINGP ERFORMED BY: PAUL [facility] Zwkhng7757 [facility] [id number] BY: [facility] [address] [id number] RBC (Bld) [#/Vol] 4.54 {x10E6/uL} Normal 3.77-5.28 [facility] Internal Medicine Work Phone: Comment on above: PATIENT WAS FASTINGP ERFORMED BY: PAUL [facility] Zmufxu7529 [facility] [id number] BY: LabCo[address] [id number] RBC (Bld) [#/Vol] 4.54 10*6/uL Normal 3.77-5.28 [facility] Internal Medicine; [facility] Work Phone: Comment on above: PATIENT WAS FASTINGP ERFORMED BY: PAUL [facility] Cmwujg7268 [facility] [id number] BY: [facility] [address] [id number] WBC (Bld) [#/Vol] 7.2 {x10E3/uL} Normal 3.4-10.8 [facility] prehensive Internal Medicine Work Phone: Comment on above: PATIENT WAS FASTINGP ERFORMED BY: PAUL [facility] Tcozwf[address] [facility] [place] [id number] BY: [address] [id number] WBC (Bld) [#/Vol] 7.2 10*3/uL Normal 3.4-10.8 [facility] Internal Medicine; [facility] Work Phone: Comment on above: PATIENT WAS FASTINGP ERFORMED BY: APUL [facility] Chxkxp9624 [address] [facility] [id number] BY: [address] [id number] INSULIN, TOTAL (25856)Ordere d By: Water Taxi Operator on 12-13-2018 Insulin Qn 5.0 {uIU/mL} Normal 2.6-24.9 Comprehensiv e Internal Medicine Work Phone: Comment on above: PATIENT WAS FASTINGP ERFORMED BY: PAUL [facility] Cjqmsn3720 [address] RoadUnc Health Chathamin [place] [id number] Insulin Qn 5.0 u[IU]/mL Normal 2.6-24.9 [facility]; [facility] Work Phone: Comment on above: PATIENT WAS FASTINGP ERFORMED BY: [facility] Tdlluy8481 [address] RoadUnc Health Chathamin [place] [id number] IRON ([id number])Ordered By: [place] on 12-13-2018 Iron [Mass/Vol] 120 ug/dL Normal 27-159 [facility] Internal Medicine Work Phone: Comment on above: PATIENT WAS FASTINGP ERFORMED BY: [facility] Juzykq[address] [facility] [place] [id number] BY: [address] [id number] REVERSE TRIIDOTHYRONINE (844 82)Ordered By: Water Taxi Operator on 12-13-2018 T3.reverse [Mass/Vol] 20.8 ng/dL Normal 9.2-24.1 [facility] Internal Medicine Work Phone: Comment on above: This test was develo ped and its performance characteristicsdetermined by [employer]. It has not been cleared or approvedby the Food and Drug Administration. PATIENT WAS FASTINGP ERFORMED BY: Disrupt CKSan Juan Regional Medical CenterGpolnj7268 [facility] [id number] BY: Disrupt CK[address] [id number] T3, FREE (TRIDOTHYRONINE) (8 9636)Ordered By: Water Taxi Operator on 12-13-2018 Free T3 [Mass/Vol] 3.5 pg/mL Normal 2.0-4.4 [facility] Internal Medicine Work Phone: Comment on above: PATIENT WAS FASTINGP ERFORMED BY: Cloudmach70 [facility] [id number] BY: Disrupt CK[address] [id number] T4, FREE (THYROXINE) (32451) Ordered By: Water Taxi Operator on 12-13-2018 Free T4 [Mass/Vol] 1.36 ng/dL Normal 0.82-1.77 [facility] Internal Medicine Work Phone: Comment on above: PATIENT WAS FASTINGP ERFORMED BY: Cloudmach70 [facility] [id number] BY: Disrupt CK[address] [id number] THYROGLOBULIN ANTIBODY (8680 0)Ordered By: Water Taxi Operator on 12-13-2018 Thyroglobulin Ab Qn [IU]/mL Normal 0.0-0.9 [facility] Internal Medicine Work Phone: Comment on above: Thyroglobulin Antibo dy measured by [employer] PATIENT WAS FASTINGP ERFORMED BY: Partigi Zcrdnd7140 [facility] [id number] BY: Disrupt CK[address] [id number] Thyroglobulin Ab Qn [IU]/mL Normal 0.0-0.9 Compr ehensive Internal Medicine; [facility] Work Phone: Comment on above: Thyroglobulin Antibo dy measured by [employer] PATIENT WAS FASTINGP ERFORMED BY: Plated70 [facility] [id number] BY: [employer] [address] [id number] TSH (THYROID STIMULATING HOR NATALYA) (86021)Ordered By: Water Taxi Operator on 12-13-2018 TSH Qn 2.230 {uIU/mL} Normal 0.450-4.50 0 [facility] Work Phone: Comment on above: PATIENT WAS FASTINGP ERFORMED BY: Partigi Ftanxp7064 [facility] [id number] BY: [employer] [id number] VITAMIN B12 AND FOLATES (826 07)Ordered By: Water Taxi Operator on 12-13-2018 Cobalamin (Vitamin B12) [Mass/Vol] 752 pg/mL Normal 232-1245 [facility] Work Phone: Comment on above: PATIENT WAS FASTINGP ERFORMED BY: Partigi Mjobpp7954 [facility] [id number] BY: [employer] [id number] Folate [Mass/Vol] ng/mL Normal Compreh ensive Internal Medicine Work Phone: Comment on above: A serum folate alexander ntration of less than 3.1 ng/mL isconsidered to represent clinical deficiency. PATIENT WAS FASTINGP ERFORMED BY: Plated70 [facility] [id number] BY: [employer] [address] [id number] C-REACTIVE PROTEIN (62919)Or dered By: Water Taxi Operator on 08-25-2016 CRP [Mass/Vol] 2.2 mg/L Normal 0.0-4.9 Comprehens triston Internal Medicine Work Phone: Comment on above: PATIENT NOT FASTINGP ERFORMED BY: CB [facility] Zrxknl6921 [address] RoadDublin [place] [id number] CBC WITH MANUAL DIFF (56455) Ordered By: Water Taxi Operator on 08-25-2016 Basophils (Bld) [#/Vol] 0.0 {x10E3/uL} Normal 0.0-0.2 [facility] Work Phone: Comment on above: PATIENT NOT FASTINGP ERFORMED BY: CB [facility] Fnkyau5697 [address] RoadDublin [place] [id number] Basophils (Bld) [#/Vol] 0.0 10*3/uL Normal 0.0-0.2 [facility]; [facility] Work Phone: Comment on above: PATIENT NOT FASTINGP ERFORMED BY: CB [facility] Qgwxng9589 [address] RoadDublin [place] [id number] Basophils/100 WBC (Bld) 1 % Normal [facility] Work Phone: Comment on above: PATIENT NOT FASTINGP ERFORMED BY: CB [facility] Rdmjoj0092 [address] RoadDublin [place] [id number] Eosinophils (Bld) [#/Vol] 0.2 {x10E3/uL} Normal 0.0-0.4 [facility] Work Phone: Comment on above: PATIENT NOT FASTINGP ERFORMED BY: CB [facility] Ygfvpi5165 [address] RoadDublin [place] [id number] Eosinophils (Bld) [#/Vol] 0.2 10*3/uL Normal 0.0-0.4 [facility]; [facility] Work Phone: Comment on above: PATIENT NOT FASTINGP ERFORMED BY: CB [facility] Grkzqf2277 [address] RoadDublin [place] [id number] Eosinophils/100 WBC (Bld) 3 % Normal [facility] Work Phone: Comment on above: PATIENT NOT FASTINGP ERFORMED BY: CB [facility] Wkonwv6197 [address] RoadDublin [place] [id number] Erythrocyte distribution width (RBC) [Ratio] 13.4 % Normal 12.3-15.4 [facility] Work Phone: Comment on above: PATIENT NOT FASTINGP ERFORMED BY: PAUL Jarquin6370 [address] Roadblin [place] [id number] Hematocrit (Bld) [Volume fraction] 37.4 % Normal 34.0-46.6 [facility] Work Phone: Comment on above: PATIENT NOT FASTINGP ERFORMED BY: CB [facility] Vhbelb5275 [address] Roadblin [place] [id number] Hemoglobin (Bld) [Mass/Vol] 12.6 g/dL Normal 11.1-15.9 [facility] Work Phone: Comment on above: PATIENT NOT FASTINGP ERFORMED BY: PAUL ZendejasCotamela PazOoebbn4029 [address] RoadUnc Health Chathamin [place] [id number] Immature granulocytes (Bld) [#/Vol] 0.0 {x10E3/uL} Normal 0.0-0.1 [facility] Work Phone: Comment on above: PATIENT NOT FASTINGP ERFORMED BY: PAUL Lab[facility] Xgacrt3283 [address] RoadUnc Health Chathamin [place] [id number] Immature granulocytes (Bld) [#/Vol] 0.0 10*3/uL Normal 0.0-0.1 [facility]; [facility] Work Phone: Comment on above: PATIENT NOT FASTINGP ERFORMED BY: PAUL [facility] Pckdeh7627 [address] Roadblin [place] [id number] Immature granulocytes/100 WBC (Bld) 0 % Normal [facility] Work Phone: Comment on above: PATIENT NOT FASTINGP ERFORMED BY: CB [facility] Cywjub0312 [address] RoadDublin [place] [id number] Lymphocytes (Bld) [#/Vol] 1.8 {x10E3/uL} Normal 0.7-3.1 [facility] Work Phone: Comment on above: PATIENT NOT FASTINGP ERFORMED BY: CB [facility] Onwxiy0676 [address] RoadDublin [place] [id number] Lymphocytes (Bld) [#/Vol] 1.8 10*3/uL Normal 0.7-3.1 [facility]; [facility] Work Phone: Comment on above: PATIENT NOT FASTINGP ERFORMED BY: PAUL [facility] Zrpxha3428 [address] RoadDublin [place] [id number] Lymphocytes/100 WBC (Bld) 25 % Normal [facility] Work Phone: Comment on above: PATIENT NOT FASTINGP ERFORMED BY: CB [facility] Zbakpo4419 [address] RoadDublin [place] [id number] MCH (RBC) [Entitic mass] 27.8 pg Normal 26.6-33.0 [facility] Internal Medicine Work Phone: Comment on above: PATIENT NOT FASTINGP ERFORMED BY: [facility] Xnwmnd9013 [address] [facility] [id number] MCHC (RBC) [Mass/Vol] 33.7 g/dL Normal 31.5-35.7 [facility] Internal Medicine Work Phone: Comment on above: PATIENT NOT FASTINGP ERFORMED BY: [facility] Lzxyvj7038 [address] [facility]ripp[facility] Childrenbl[facility] [place] [id number] MCV (RBC) [Entitic vol] 83 fL Normal 79-97 [facility] Internal Medicine Work Phone: Comment on above: PATIENT NOT FASTINGP ERFORMED BY: [facility] Cmifza0018 [address] [facility] [id number] Monocytes (Bld) [#/Vol] 1.0 {x10E3/uL} Abnormal 0.1-0.9 [facility] Work Phone: Comment on above: PATIENT NOT FASTINGP ERFORMED BY: CB [facility] Tfsxsi1872 [address] RoadDublin [place] [id number] Monocytes (Bld) [#/Vol] 1.0 10*3/uL Abnormal 0.1-0.9 [facility]; [facility] Work Phone: Comment on above: PATIENT NOT FASTINGP ERFORMED BY: CB [facility] Wnwlxm3326 [address] RoadDublUofL Health - [facility] [id number] Monocytes/100 WBC (Bld) 13 % Normal [facility] Work Phone: Comment on above: PATIENT NOT FASTINGP ERFORMED BY: CB [facility] Dfsnrd3656 [address] RoadDublin [place] [id number] Neutrophils (Bld) [#/Vol] 4.2 {x10E3/uL} Normal 1.4-7.0 [facility] Work Phone: Comment on above: PATIENT NOT FASTINGP ERFORMED BY: CB [facility] Ihunia6867 [address] RoadDublin [place] [id number] Neutrophils (Bld) [#/Vol] 4.2 10*3/uL Normal 1.4-7.0 [facility]; [facility] Work Phone: Comment on above: PATIENT NOT FASTINGP ERFORMED BY: CB [facility] Gquniy2033 [address] RoadDublin [place] [id number] Neutrophils/100 WBC (Bld) 58 % Normal [facility] Work Phone: Comment on above: PATIENT NOT FASTINGP ERFORMED BY: CB [facility] Kadteo1332 [address] RoadDublin [place] [id number] Platelets (Bld) [#/Vol] 279 {x10E3/uL} Normal 150-379 [facility] Work Phone: Comment on above: PATIENT NOT FASTINGP ERFORMED BY: CB [facility] Nbikgj1774 [address] RoadDublin [place] [id number] Platelets (Bld) [#/Vol] 279 10*3/uL Normal 150-379 [facility]; [facility] Work Phone: Comment on above: PATIENT NOT FASTINGP ERFORMED BY: CB [facility] Gpncfo0976 [address] RoadDublin [place] [id number] RBC (Bld) [#/Vol] 4.53 {x10E6/uL} Normal 3.77-5.28 [facility] Internal Medicine Work Phone: Comment on above: PATIENT NOT FASTINGP ERFORMED BY: CB [facility] Ltvlpl1361 [address] RoadDublin [place] [id number] RBC (Bld) [#/Vol] 4.53 10*6/uL Normal 3.77-5.28 [facility]; [facility] Work Phone: Comment on above: PATIENT NOT FASTINGP ERFORMED BY: [facility]6370 [facility] [id number] WBC (Bld) [#/Vol] 7.2 {x10E3/uL} Normal 3.4-10.8 [facility] Internal Medicine Work Phone: Comment on above: PATIENT NOT FASTINGP ERFORMED BY: [facility]6370 [facility] [id number] WBC (Bld) [#/Vol] 7.2 10*3/uL Normal 3.4-10.8 [facility] Internal Medicine; [facility] Work Phone: Comment on above: PATIENT NOT FASTINGP ERFORMED BY: [place] 7358270 [facility] [id number] EBV Panel (33220)Ordered By: Water Taxi Operator on 08-25-2016 EBV capsid IgG IA Qn (S) >600.0 Abnormal 0.0-17.9 [facility] Work Phone: Comment on above: Negative <18.0 Equiv ocal 18.0 - 21.9 Positive >21.9 PATIENT NOT FASTINGP ERFORMED BY: [facility]6370 [facility] [id number] EBV capsid IgM IA Qn (S) <36.0 Normal 0.0-35.9 [facility] Work Phone: Comment on above: Negative <36.0 Equiv ocal 36.0 - 43.9 Positive >43.9 PATIENT NOT FASTINGP ERFORMED BY: [facility]6370 [facility] [id number] EBV early IgG Qn (S) <9.0 Normal 0.0-8.9 [facility] Internal Medicine Work Phone: Comment on above: Negative < 9.0 Equiv ocal 9.0 - 10.9 Positive >10.9 PATIENT NOT FASTINGP ERFORMED BY: Disrupt CK Ypjdzd5789 [address] [employer] SolutionsFirstHealth [facility] [id number] EBV nuclear IgG IA Qn (S) 27.6 U/mL Abnormal 0.0-17.9 [facility] Work Phone: Comment on above: Negative <18.0 Equiv ocal 18.0 - 21.9 Positive >21.9 PATIENT NOT FASTINGP ERFORMED BY: [employer] CenterJniick0347 [address] BacterioscanAt[facility] Health [facility] [id number] Service comment (Unsp spec) [Interp] SPRCS Normal [facility] Work Phone: Comment on above: EBV Interpretation C tobar . Interpretation EBV-IgM EA(D)-IgG VCA-IgG EBNA-IgG . EBV Seronegative - - - - Early Phase + - - - Acute Primary + +or- + - Infection Convalescence/Past - +or- + + Infection Reactivated +or- + + + Infection + Antibody Present - Antibody Absent PATIENT NOT FASTINGP ERFORMED BY: Disrupt CK Rrjhxf4459 [address] BacterioscanAtrium Health [facility] [id number] IRON ([id number])Ordered By: [place] on 08-25-2016 Iron [Mass/Vol] 23 ug/dL Abnormal 27-159 [facility] Internal Medicine Work Phone: Comment on above: PATIENT NOT FASTINGP ERFORMED BY: Disrupt CK Iybspc6487 [address] BacterioscanAtrium Health [facility] [id number] LDH (LD) (LACTATE DEHYDROGEN ASE) (31171)Ordered By: Water Taxi Operator on 08-25-2016 LDH [Catalytic activity/Vol] 120 [iU]/L Normal 119-226 [facility] Work Phone: Comment on above: PATIENT NOT FASTINGP ERFORMED BY: Disrupt CK Ehsqmn4779 [facility] [id number] LDH [Catalytic activity/Vol] 120 U/L Normal 119-226 [facility]; [facility] Work Phone: Comment on above: PATIENT NOT FASTINGP ERFORMED BY: Disrupt CK Nloqex1853 [address] RoadDublin [place] [id number] METABOLIC PANEL, COMPREHENSI VE (02012)Ordered By: Water Taxi Operator on 08-25-2016 Albumin [Mass/Vol] 4.9 g/dL Normal 3.5-5.5 [facility] Internal Medicine Work Phone: Comment on above: PATIENT NOT FASTINGP ERFORMED BY: PAUL [facility] Hzpjju9109 [address] RoadDublin [place] [id number] Albumin/Globulin [Mass ratio] 2.0 {ratio} Normal 1.2-2.2 [facility] Work Phone: Comment on above: Please note refere nce interval change PATIENT NOT FASTINGP ERFORMED BY: PAUL LabCotamela PazPgzjmz4900 [address] RoadDublin [place] [id number] ALP [Catalytic activity/Vol] 68 [iU]/L Normal 39-117 [facility] Work Phone: Comment on above: PATIENT NOT FASTINGP ERFORMED BY: CB [facility] Kjeddx0504 [address] RoadDublin [place] [id number] ALP [Catalytic activity/Vol] 68 U/L Normal 39-117 [facility]; [facility] Work Phone: Comment on above: PATIENT NOT FASTINGP ERFORMED BY: PAUL [facility] Yipsyu6514 [address] RoadDublin [place] [id number] ALT [Catalytic activity/Vol] 15 [iU]/L Normal 0-32 [facility] Work Phone: Comment on above: PATIENT NOT FASTINGP ERFORMED BY: CB [facility] Lvtwca5837 [address] RoadDublin [place] [id number] ALT [Catalytic activity/Vol] 15 U/L Normal 0-32 [facility]; [facility] Work Phone: Comment on above: PATIENT NOT FASTINGP ERFORMED BY: CB [facility] Biycbo1002 [address] RoadDublin [place] [id number] AST [Catalytic activity/Vol] 14 [iU]/L Normal 0-40 [facility] Work Phone: Comment on above: PATIENT NOT FASTINGP ERFORMED BY: CB [facility] Amyohf3170 [address] RoadDublin [place] [id number] AST [Catalytic activity/Vol] 14 U/L Normal 0-40 [facility]; [facility] Work Phone: Comment on above: PATIENT NOT FASTINGP ERFORMED BY: CB [facility] Jdsvxp3818 [address] RoadDublin [place] [id number] Bilirubin [Mass/Vol] 0.2 mg/dL Normal 0.0-1.2 [facility] Work Phone: Comment on above: PATIENT NOT FASTINGP ERFORMED BY: PAUL [facility] Rloixk7698 [address] RoadDublin [place] [id number] Calcium [Mass/Vol] 9.3 mg/dL Normal 8.7-10.2 [facility] Internal Medicine Work Phone: Comment on above: PATIENT NOT FASTINGP ERFORMED BY: PAUL [facility] Lbvnhg0904 [address] RoadDuin [place] [id number] Chloride [Moles/Vol] 101 mmol/L Normal 96-106 [facility] Work Phone: Comment on above: PATIENT NOT FASTINGP ERFORMED BY: PAUL [facility] Ncphsb4270 [address] RoadDublin [place] [id number] CO2 [Moles/Vol] 23 mmol/L Normal 18-29 [facility] Internal Medicine Work Phone: Comment on above: PATIENT NOT FASTINGP ERFORMED BY: PAUL [facility] Gemkxi4885 [address] RoadDublin [place] [id number] Creatinine [Mass/Vol] 0.70 mg/dL Normal 0.57-1.00 [facility] Internal Medicine Work Phone: Comment on above: PATIENT NOT FASTINGP ERFORMED BY: CB [facility] Bgmccj7155 [address] RoadDublin [place] [id number] GFR/1.73 sq M predicted among blacks CKD-EPI (S/P/Bld) [Vol rate/Area] 134 mL/min/1.73 Normal [facility] Internal Medicine Work Phone: Comment on above: PATIENT NOT FASTINGP ERFORMED BY: CB [facility] Bpleto9914 [address] [facility] [id number] GFR/1.73 sq M predicted among non-blacks CKD-EPI (S/P/Bld) [Vol rate/Area] 117 mL/min/1.73 Normal [facility] Internal Medicine Work Phone: Comment on above: PATIENT NOT FASTINGP ERFORMED BY: PAUL Keegan Nzxebt8652 [facility] [id number] Globulin (S) [Mass/Vol] 2.4 g/dL Normal 1.5-4.5 [facility] Internal Medicine Work Phone: Comment on above: PATIENT NOT FASTINGP ERFORMED BY: PAUL AashishVicky PazYmdvqh9137 [address] [facility] [id number] Glucose [Mass/Vol] 89 mg/dL Normal 65-99 [facility] Internal Medicine Work Phone: Comment on above: PATIENT NOT FASTINGP ERFORMED BY: PAUL Pazlin6370 [facility] [id number] Potassium [Moles/Vol] 3.7 mmol/L Normal 3.5-5.2 [facility] Internal Medicine Work Phone: Comment on above: PATIENT NOT FASTINGP ERFORMED BY: PAUL AashishVicky PazKviwtz2194 [facility] [id number] Protein [Mass/Vol] 7.3 g/dL Normal 6.0-8.5 [facility] Internal Medicine Work Phone: Comment on above: PATIENT NOT FASTINGP ERFORMED BY: PAUL LabBlaise Kldjdr3333 [address] [facility] [id number] Sodium [Moles/Vol] 141 mmol/L Normal 134-144 [facility] Internal Medicine Work Phone: Comment on above: PATIENT NOT FASTINGP ERFORMED BY: PAUL Keegantamela PazThmglq0820 [address] [facility] [id number] Urea nitrogen [Mass/Vol] 14 mg/dL Normal 6-20 [facility] Internal Medicine Work Phone: Comment on above: PATIENT NOT FASTINGP ERFORMED BY: PAUL Allison Qrupws3634 [facility] [id number] Urea nitrogen/Creatinine [Mass ratio] 20 mg/mg Normal 8-20 [facility] Work Phone: Comment on above: PATIENT NOT FASTINGP ERFORMED BY: PAUL Jarquin6370 [address] [facility] [place] [id number] Sed Rate Erythrocyte (56443) Ordered By: Water Taxi Operator on 08-25-2016 ESR (Bld) [Velocity] 9 mm/h Normal 0-32 [facility] Internal Medicine Work Phone: Comment on above: PATIENT NOT FASTINGP ERFORMED BY: PAUL ZendejasMid [facility] Usbwzi4918 [facility] [id number] T3, FREE (TRIDOTHYRONINE) (3 2078)Ordered By: Water Taxi Operator on 08-25-2016 Free T3 [Mass/Vol] 2.7 pg/mL Normal 2.0-4.4 [facility] Internal Medicine Work Phone: Comment on above: PATIENT NOT FASTINGP ERFORMED BY: AashishMid [facility] Jdpciq1090 [facility] [id number] T4, FREE (THYROXINE) (42900) Ordered By: Water Taxi Operator on 08-25-2016 Free T4 [Mass/Vol] 1.09 ng/dL Normal 0.82-1.77 [facility] Internal Medicine Work Phone: Comment on above: PATIENT NOT FASTINGP ERFORMED BY: AashishChildren'S [facility]6370 [facility] [id number] TSH (08960)Ordered By: [employer] [place] Constable on 08-25-2016 TSH Qn 2.390 {uIU/mL} Normal 0.450-4.50 0 [facility] Internal Medicine Work Phone: Comment on above: PATIENT NOT FASTINGP ERFORMED BY: PAUL Allison Ccrubi6395 [facility] [id number] VITAMIN B-12 (CYANOCOBALAMIN ) (31442)Ordered By: Water Taxi Operator on 08-25-2016 Cobalamin (Vitamin B12) [Mass/Vol] 918 pg/mL Normal 211-946 [facility] Internal Medicine Work Phone: Comment on above: PATIENT NOT FASTINGP ERFORMED BY: LabChildren'[facility]6370 [facility] [id number] PPD (14224)Ordered By: Jeffy Valera on 08-24-2015 PPD (70437) Negative Normal [facility] Work Phone: Comment on above: Lot:[id number]: 7Dose:0.1mgRoute:idSite:mel lozoyaGiven By:KATELYN signed PPD (23027) Negative Normal [facility]; [facility] Work Phone: Comment on above: Lot:[id number]: [id number]:0.1mgRoute:idSite:mel lozoyaGiven By:KATELYN signed C-REACTIVE PROTEIN (70645)Or dered By: Water Taxi Operator on 09-11-2014 CRP [Mass/Vol] 0.9 mg/L Normal 0.0-4.[address] [facility] Internal Medicine Work Phone: Comment on above: PATIENT WAS FASTINGP ERFORMED BY: LabChildren'[facility]6370 [facility] [id number] CBC with auto diff (95657)Or dered By: Water Taxi Operator on 09-11-2014 Basophils (Bld) [#/Vol] 0.0 {x10E3/uL} Normal 0.0-0.2 [facility] Work Phone: Comment on above: PATIENT WAS FASTINGP ERFORMED BY: LabChildren'[facility]6370 [facility] [id number] Information: [id number] Basophils (Bld) [#/Vol] 0.0 10*3/uL Normal 0.0-0.2 [facility]; [facility] Work Phone: Comment on above: PATIENT WAS FASTINGP ERFORMED BY: LabChildren[facility]6370 [facility] [id number] Information: [id number],N00065 Basophils/100 WBC (Bld) 0 % Normal [facility] Work Phone: Comment on above: PATIENT WAS FASTINGP ERFORMED BY: [place] [id number] [facility] [id number] Information: 131876,[id number] Eosinophils (Bld) [#/Vol] 0.2 {x10E3/uL} Normal 0.0-0.4 [facility] Work Phone: Comment on above: PATIENT WAS FASTINGP ERFORMED BY: [address] [id number] Information: [id number] Eosinophils (Bld) [#/Vol] 0.2 10*3/uL Normal 0.0-0.4 [facility]; [facility] Work Phone: Comment on above: PATIENT WAS FASTINGP ERFORMED BY: [address] [id number] Information: [id number] Eosinophils/100 WBC (Bld) 2 % Normal [facility] Work Phone: Comment on above: PATIENT WAS FASTINGP ERFORMED BY: [address] [id number] Information: 653539,[id number] Erythrocyte distribution width (RBC) [Ratio] 14.0 % Normal 12.3-15.4 [facility] Work Phone: Comment on above: PATIENT WAS FASTINGP ERFORMED BY: [address] [id number] Information: [id number],[id number] Hematocrit (Bld) [Volume fraction] 38.6 % Normal 34.0-46.6 [facility] Work Phone: Comment on above: PATIENT WAS FASTINGP ERFORMED BY: [address] [id number] Information: [id number],[id number] Hemoglobin (Bld) [Mass/Vol] 12.5 g/dL Normal 11.1-15.9 [facility] Work Phone: Comment on above: PATIENT WAS FASTINGP ERFORMED BY: PAUL ZendejasMid [facility] Mental Health Center Mvjitq1270 [facility] [id number] Information: 316752,[id number] Immature granulocytes (Bld) [#/Vol] 0.0 {x10E3/uL} Normal 0.0-0.1 [facility] Work Phone: Comment on above: PATIENT WAS FASTINGP ERFORMED BY: [address] [id number] Information: 996149,[id number] Immature granulocytes (Bld) [#/Vol] 0.0 10*3/uL Normal 0.0-0.1 [facility]; [facility] Work Phone: Comment on above: PATIENT WAS FASTINGP ERFORMED BY: [address] [id number] Information: 508008,M06211 Immature granulocytes/100 WBC (Bld) 0 % Normal [facility] Work Phone: Comment on above: PATIENT WAS FASTINGP ERFORMED BY: Aashish[address] [id number] Information: 687282,[id number] Lymphocytes (Bld) [#/Vol] 1.4 {x10E3/uL} Normal 0.7-3.1 [facility] Work Phone: Comment on above: PATIENT WAS FASTINGP ERFORMED BY: [place] [id number] [facility] [id number] Information: 226253,S29841 Lymphocytes (Bld) [#/Vol] 1.4 10*3/uL Normal 0.7-3.1 [facility]; [facility] Work Phone: Comment on above: PATIENT WAS FASTINGP ERFORMED BY: [address] [id number] Information: 552603,L55553 Lymphocytes/100 WBC (Bld) 19 % Normal [facility] Internal Medicine Work Phone: Comment on above: PATIENT WAS FASTINGP ERFORMED BY: [address] [id number] Information: 351676,[id number] MCH (RBC) [Entitic mass] 27.7 pg Normal 26.6-33.0 [facility] Internal Medicine Work Phone: Comment on above: PATIENT WAS FASTINGP ERFORMED BY: [address] [id number] Information: 911369,[id number] MCHC (RBC) [Mass/Vol] 32.4 g/dL Normal 31.5-35.7 [facility] Internal Medicine Work Phone: Comment on above: PATIENT WAS FASTINGP ERFORMED BY: [address] [id number] Information: [id number],[id number] MCV (RBC) [Entitic vol] 86 fL Normal 79-97 [facility] Internal Medicine Work Phone: Comment on above: PATIENT WAS FASTINGP ERFORMED BY: [address] [id number] Information: [id number] Monocytes (Bld) [#/Vol] 0.7 {x10E3/uL} Normal 0.1-0.9 [facility] Internal Medicine Work Phone: Comment on above: PATIENT WAS FASTINGP ERFORMED BY: [address] [id number] Information: 649445,[id number] Monocytes (Bld) [#/Vol] 0.7 10*3/uL Normal 0.1-0.9 [facility]; [facility] Work Phone: Comment on above: PATIENT WAS FASTINGP ERFORMED BY: [address] [id number] Information: 653111,[id number] Monocytes/100 WBC (Bld) 9 % Normal [facility] Work Phone: Comment on above: PATIENT WAS FASTINGP ERFORMED BY: PAUL Jarquin6370 [facility] [id number] Information: 078319,F49995 Neutrophils (Bld) [#/Vol] 5.2 {x10E3/uL} Normal 1.4-7.0 [facility] Work Phone: Comment on above: PATIENT WAS FASTINGP ERFORMED BY: PAUL Allison Bngcev4940 [facility] [id number] Information: [id number] Neutrophils (Bld) [#/Vol] 5.2 10*3/uL Normal 1.4-7.0 [facility]; [facility] Work Phone: Comment on above: PATIENT WAS FASTINGP ERFORMED BY: PAUL Keegan Zqacwb3563 [facility] [id number] Information: 303312,K74043 Neutrophils/100 WBC (Bld) 70 % Normal [facility] Work Phone: Comment on above: PATIENT WAS FASTINGP ERFORMED BY: PAUL Jarquin6370 [facility] [id number] Information: 580413,Q53567 Platelets (Bld) [#/Vol] 273 {x10E3/uL} Normal 150-379 [facility] Work Phone: Comment on above: PATIENT WAS FASTINGP ERFORMED BY: PAUL Allison Sxqtqe1939 [facility] [id number] Information: [id number],[id number] Platelets (Bld) [#/Vol] 273 10*3/uL Normal 150-379 [facility]; [facility] Work Phone: Comment on above: PATIENT WAS FASTINGP ERFORMED BY: PAUL Keegan Qlsczt4382 [facility] [id number] Information: [id number],[id number] RBC (Bld) [#/Vol] 4.51 {x10E6/uL} Normal 3.77-5.28 [facility] Internal Medicine Work Phone: Comment on above: PATIENT WAS FASTINGP ERFORMED BY: PAUL Darlene Jarquin6370 [facility] [id number] Information: 742340,[id number] RBC (Bld) [#/Vol] 4.51 10*6/uL Normal 3.77-5.28 [facility] Internal Medicine; [facility] Work Phone: Comment on above: PATIENT WAS FASTINGP ERFORMED BY: PAUL AashishMid [facility] Mental Health Center Qqrkii1000 [facility] [id number] Information: 259946,[id number] WBC (Bld) [#/Vol] 7.4 {x10E3/uL} Normal 3.4-10.8 [facility] Internal Medicine Work Phone: Comment on above: PATIENT WAS FASTINGP ERFORMED BY: PAUL Keegan Yjnwhe0431 [facility] [id number] Information: [id number] WBC (Bld) [#/Vol] 7.4 10*3/uL Normal 3.4-10.8 [facility] Internal Medicine; [facility] Work Phone: Comment on above: PATIENT WAS FASTINGP ERFORMED BY: PAUL Keegan Bjmbyb6571 [facility] [id number] Information: [id number],G30045 LIPASE (87323)Ordered By: [place] on 09-11-2014 Lipase [Catalytic activity/Vol] 45 U/L Normal 0-59 [facility] Work Phone: Comment on above: PATIENT WAS FASTINGP ERFORMED BY: PAUL LabMid [facility] Uglwqd7094 [facility] [id number] METABOLIC PANEL, COMPREHENSI VE (90356)Ordered By: Water Taxi Operator on 09-11-2014 Albumin [Mass/Vol] 4.5 g/dL Normal 3.5-5.5 [facility] Internal Medicine Work Phone: Comment on above: PATIENT WAS FASTINGP ERFORMED BY: PAUL LabCotamela Ybqrbo6985 [address]quin RoadDublin [place] [id number] Albumin/Globulin [Mass ratio] 2.0 {ratio} Normal 1.1-2.5 [facility] Work Phone: Comment on above: PATIENT WAS FASTINGP ERFORMED BY: PAUL LabVicky PazTuliyy3819 [address] RoadDublin [place] [id number] ALP [Catalytic activity/Vol] 49 [iU]/L Normal 39-117 [facility] Work Phone: Comment on above: PATIENT WAS FASTINGP ERFORMED BY: PAUL [facility] Hgzhve5630 [address] RoadDublin [place] [id number] ALP [Catalytic activity/Vol] 49 U/L Normal 39-117 [facility]; [facility] Work Phone: Comment on above: PATIENT WAS FASTINGP ERFORMED BY: PAUL Darlene Pazlin6370 [address] RoadDublin [place] [id number] ALT [Catalytic activity/Vol] 14 [iU]/L Normal 0-32 [facility] Work Phone: Comment on above: PATIENT WAS FASTINGP ERFORMED BY: PAUL LabVicky Nomaxk0582 [address] RoadDublin [place] [id number] ALT [Catalytic activity/Vol] 14 U/L Normal 0-32 [facility]; [facility] Work Phone: Comment on above: PATIENT WAS FASTINGP ERFORMED BY: [facility] Ngvpvh5876 [address] RoadDublin [place] [id number] AST [Catalytic activity/Vol] 17 [iU]/L Normal 0-40 [facility] Work Phone: Comment on above: PATIENT WAS FASTINGP ERFORMED BY: PAUL [facility] Ejmdtv5861 [address] RoadDublin [place] [id number] AST [Catalytic activity/Vol] 17 U/L Normal 0-40 [facility]; [facility] Work Phone: Comment on above: PATIENT WAS FASTINGP ERFORMED BY: PAUL [facility] Szbkxi2110 [address] RoadDublin [place] [id number] Bilirubin [Mass/Vol] 0.4 mg/dL Normal 0.0-1.2 [facility] rehensive Internal Medicine Work Phone: Comment on above: PATIENT WAS FASTINGP ERFORMED BY: PAUL [facility] Qmbxiu3297 [address] RoadDublin [place] [id number] Calcium [Mass/Vol] 9.5 mg/dL Normal 8.7-10.2 [facility] Internal Medicine Work Phone: Comment on above: PATIENT WAS FASTINGP ERFORMED BY: [facility] Akvpps9933 [address] RoadDublin [place] [id number] Chloride [Moles/Vol] 103 mmol/L Normal 97-108 [facility] Work Phone: Comment on above: PATIENT WAS FASTINGP ERFORMED BY: [facility] Ymwico4960 [address] RoadDublin [place] [id number] CO2 [Moles/Vol] 22 mmol/L Normal 18-29 [facility] Internal Medicine Work Phone: Comment on above: PATIENT WAS FASTINGP ERFORMED BY: [facility] Wksyub1407 [address] RoadDublin [place] [id number] Creatinine [Mass/Vol] 0.83 mg/dL Normal 0.57-1.00 [facility] Internal Medicine Work Phone: Comment on above: PATIENT WAS FASTINGP ERFORMED BY: LabMid [facility] Verlxe9466 [address] RoadDublin [place] [id number] GFR/1.73 sq M predicted among blacks CKD-EPI (S/P/Bld) [Vol rate/Area] 111 mL/min/1.73 Normal [facility] Work Phone: Comment on above: PATIENT WAS FASTINGP ERFORMED BY: [facility] Jgdtqg6622 [address] RoadDublin [place] [id number] GFR/1.73 sq M predicted among non-blacks CKD-EPI (S/P/Bld) [Vol rate/Area] 96 mL/min/1.73 Normal [facility] Work Phone: Comment on above: PATIENT WAS FASTINGP ERFORMED BY: APUL [facility] Ufyupd0282 [address] RoadDublin [place] [id number] Globulin (S) [Mass/Vol] 2.3 g/dL Normal 1.5-4.5 [facility] Internal Medicine Work Phone: Comment on above: PATIENT WAS FASTINGP ERFORMED BY: PUAL [facility] Hcrldy3338 [address] RoadDublin [place] [id number] Glucose [Mass/Vol] 81 mg/dL Normal 65-99 [facility] Internal Medicine Work Phone: Comment on above: PATIENT WAS FASTINGP ERFORMED BY: PAUL LabMid [facility] Fgydfp0153 [address] RoadDublin [place] [id number] Potassium [Moles/Vol] 4.2 mmol/L Normal 3.5-5.2 [facility] Internal Medicine Work Phone: Comment on above: PATIENT WAS FASTINGP ERFORMED BY: PAUL Pazlin6370 [address] RoadDublin [place] [id number] Protein [Mass/Vol] 6.8 g/dL Normal 6.0-8.5 [facility] Internal Medicine Work Phone: Comment on above: PATIENT WAS FASTINGP ERFORMED BY: PAUL LabVciky PazZdsxxa6766 [address] RoadDublin [place] [id number] Sodium [Moles/Vol] 141 mmol/L Normal 134-144 [facility] Internal Medicine Work Phone: Comment on above: PATIENT WAS FASTINGP ERFORMED BY: PAUL LabVicky PazDxxzgs1499 [address] RoadDublin [place] [id number] Urea nitrogen [Mass/Vol] 9 mg/dL Normal 6-20 [facility] Internal Medicine Work Phone: Comment on above: PATIENT WAS FASTINGP ERFORMED BY: PAUL LabCotamela Lwlvyi5014 [address] RoadDublin [place] [id number] Urea nitrogen/Creatinine [Mass ratio] 11 mg/mg Normal 8-20 [facility] Internal Medicine Work Phone: Comment on above: PATIENT WAS FASTINGP ERFORMED BY: PUAL LabBlaise Armamm6215 [address] RoadDublin [place] [id number] SED RATE ERYTHROCYTE (60611) Ordered By: Water Taxi Operator on 09-11-2014 ESR (Bld) [Velocity] 2 mm/h Normal 0-32 Comp rehensive Internal Medicine Work Phone: Comment on above: PATIENT WAS FASTINGP ERFORMED BY: Partigi Rnwnyq8551 [address] RoadDublin [place] [id number] TSH (98372)Ordered By: Adriana m [place] Constable on 09-11-2014 TSH Qn 1.150 {uIU/mL} Normal 0.450-4.50 0 [facility] Work Phone: Comment on above: PATIENT WAS FASTINGP ERFORMED BY: Kyield [facility] Xsbdqr8077 [address] [employer] Solutionsblin [place] [id number] Vitamin D Hydroxy (77136)Ord ered By: Water Taxi Operator on 09-11-2014 25-Hydroxyvitamin D2+25-Hydroxyvitamin D3 [Mass/Vol] 44.4 ng/mL Normal 30.0-100.0 [facility] Work Phone: Comment on above: Vitamin D deficiency has been defined by the [place] of[place]icine and an Endocrine Society practice guideline as alevel of serum 25-OH vitamin D less than 20 ng/mL (1,2).The Endocrine Society went on to further define vitamin Dinsufficiency as a level between 21 and 29 ng/mL (2).1. IOM ([place] of Medicine). 2010. Dietary reference intakes for calcium and D. [place]: The National Academies Press.2. Nolberto MF, Isabel MOLINA, Mario ALVAREZ, et al. Evaluation, treatment, and prevention of vitamin D deficiency: an Endocrine Society clinical practice guideline. JCEM. 2010; 96(7):1911-30. PATIENT WAS FASTINGP ERFORMED BY: Kyield [facility] Ratvwd[address] [facility] Hospitalin [place] [id number] PPD (29833)Ordered By: Nan Brian on 09-02-2014 PPD (05964) Negative Normal [facility] Work Phone: PPD (21498) Negative Normal [facility]; [facility] Work Phone: URINE LIZET CULTURE (KIT COL COUNT) (68347)Ordered By: Water Taxi Operator on 04-29-2013 Bacteria identified Cx Nom (U) ECV Normal [facility] Work Phone: Comment on above: Escherichia coli, id entified by an automated biochemical system.25,000-50,000 colony forming units per mL S = Susceptible; I = Intermediate; R = Resistant P = Positive; N = Negative MICS are expressed in micrograms per mL Antibiotic RSLT#1 RSLT#2 RSLT#3 RSLT#4Amoxicillin/Clavulanic Acid SAmpicillin SCefepime SCeftriaxone SCefuroxime SCephalothin SCiprofloxacin SErtapenem SGentamicin SImipenem SLevofloxacin SNitrofurantoin SPiperacillin STetracycline STobramycin STrimethoprim/Sulfa S PATIENT NOT FASTINGP ERFORMED BY: Partigi Ayqsrp8037 Windsor CircleUofL Health - [facility] [id number] Information: SRC:UR [id number] Bacteria identified Cx Nom (U) Final report Normal [facility] Work Phone: Comment on above: PATIENT NOT FASTINGP ERFORMED BY: Kyield [facility] Gqzhwn24[address] [place] [id number] Information: SRC:UR [id number] Urinalysis, Office (05317)Or dered By: Franchesca Cleary on 04-29-2013 Bilirubin Ql (U) Negative Normal Comprehe nsive Internal Medicine Work Phone: Bilirubin Ql (U) Negative Normal Comprehe nsive Internal Medicine; [facility] Work Phone: Glucose Test strip (U) [Mass/Vol] Negative Normal [facility] Work Phone: Glucose Test strip (U) [Mass/Vol] Negative Normal [facility]; [facility] Work Phone: Hemoglobin Ql (U) Negative Normal Compreh ensive Internal Medicine Work Phone: Hemoglobin Ql (U) Negative Normal Compreh ensive Internal Medicine; [facility] Work Phone: Ketones Ql (U) Negative Normal Comprehens [facility]iston [facility] Work Phone: Ketones Ql (U) Negative Normal Comprehens [facility]; [facility] Work Phone: Leukocyte esterase Test strip Ql (U) Negative Normal [facility] Work Phone: Leukocyte esterase Test strip Ql (U) Negative Normal [facility]; [facility] Work Phone: Nitrite Ql (U) Negative Normal Comprehens [facility] Work Phone: Nitrite Ql (U) Negative Normal Comprehens [facility]; [facility] Work Phone: pH (U) 7.0 [pH] Normal [facility] Work Phone: Protein Ql (U) Negative Normal Comprehens [facility] Work Phone: Protein Ql (U) Negative Normal Comprehens [facility]; [facility] Work Phone: Specific gravity (U) [Rel density] 1.015 1 Normal [facility] Work Phone: Urobilinogen (24H U) [Mass/Time] Normal Normal [facility] Work Phone: LIZET CULTURE-OTHER (98574)Ord ered By: Water Taxi Operator on 12-31-2012 Bacteria identified Respiratory culture Nom (Unsp spec) Final report Normal [facility] Work Phone: Comment on above: PATIENT NOT FASTINGP ERFORMED BY: CB [facility] Fgedgm4699 GemvaraFirstHealth [facility] [id number] Information: SRC:THRT [id number] Bacteria identified Respiratory culture Nom (Unsp spec) RRF Normal [facility] Work Phone: Comment on above: Routine respiratory ranulfo PATIENT NOT FASTINGP ERFORMED BY: Kyield [facility] Nfprbb7531 GemvaraFirstHealth [facility] [id number] Information: SRC:THRT [id number] PPD (77883)Ordered By: Eulalia Obando on 12-31-2012 PPD (03201) Negative Normal [facility] Work Phone: Comment on above: lot # [id number] - LFreyarm- Dennys TITLE PROCESSOR PPD (29856) Negative Normal [facility]; [facility] Work Phone: Comment on above: lot # [id number] - LFreyarm- Dennys TITLE PROCESSOR Rapid Strep Test, Office (82 472)Ordered By: May Verde on 12-31-2012 S. pyogenes Ag EIA Ql (Throat) Negative Normal [facility]; [facility] Work Phone: S. pyogenes Ag IA Ql (Unsp spec) Negative Normal [facility] Work Phone: CBC WITH MANUAL DIFF (50220) Ordered By: Water Taxi Operator on 10-10-2012 Basophils (Bld) [#/Vol] 0.0 {x10E3/uL} Normal 0.0-0.2 [facility] Work Phone: Comment on above: PATIENT NOT FASTINGP ERFORMED BY: CB [facility] Mwxora5168 [address] RoadDuin [place] [id number] Information: [id number] Basophils (Bld) [#/Vol] 0.0 10*3/uL Normal 0.0-0.2 [facility]; [facility] Work Phone: Comment on above: PATIENT NOT FASTINGP ERFORMED BY: CB [facility] Aoilai[address] [employer] Network SolutionsFirstHealth [facility] [place] [id number] Information: [id number],[id number] Basophils/100 WBC (Bld) 1 % Normal 0-3 [facility] Work Phone: Comment on above: PATIENT NOT FASTINGP ERFORMED BY: CB [facility] Agurrd1250 [address] BacterioscanDuin [place] [id number] Information: 895900,L40597 Eosinophils (Bld) [#/Vol] 0.1 {x10E3/uL} Normal 0.0-0.4 [facility] Work Phone: Comment on above: PATIENT NOT FASTINGP ERFORMED BY: CB [facility] Vdncsa4437 [address] BacterioscanAtrium Health [facility] [id number] Information: [id number] Eosinophils (Bld) [#/Vol] 0.1 10*3/uL Normal 0.0-0.4 [facility]; [facility] Work Phone: Comment on above: PATIENT NOT FASTINGP ERFORMED BY: PAUL [facility] Galivg9922 [facility] [id number] Information: [id number],[id number] Eosinophils/100 WBC (Bld) 2 % Normal 0-7 [facility] Work Phone: Comment on above: PATIENT NOT FASTINGP ERFORMED BY: CB LabCoAnthony Ville 5405070 [facility] [id number] Information: [id number],[id number] Erythrocyte distribution width (RBC) [Ratio] 13.6 % Normal 12.3-15.4 [facility] Work Phone: Comment on above: PATIENT NOT FASTINGP ERFORMED BY: CB Lab[facility] Asqxpi1473 [facility] [id number] Information: [id number] Hematocrit (Bld) [Volume fraction] 38.4 % Normal 34.0-46.6 [facility] Work Phone: Comment on above: PATIENT NOT FASTINGP ERFORMED BY: [facility] Ufrluk0600 [facility] [id number] Information: 333307,[id number] Hemoglobin (Bld) [Mass/Vol] 12.5 g/dL Normal 11.1-15.9 [facility] Work Phone: Comment on above: PATIENT NOT FASTINGP ERFORMED BY: CB [facility] Gqqqry4627 [facility] [id number] Information: [id number] Immature granulocytes (Bld) [#/Vol] 0.0 {x10E3/uL} Normal 0.0-0.1 [facility] Work Phone: Comment on above: PATIENT NOT FASTINGP ERFORMED BY: CB [facility] Whjovx8284 [facility] [id number] Information: [id number],[id number] Immature granulocytes (Bld) [#/Vol] 0.0 10*3/uL Normal 0.0-0.1 [facility]; [facility] Work Phone: Comment on above: PATIENT NOT FASTINGP ERFORMED BY: PAUL Pazlin6370 [facility] [id number] Information: [id number],[id number] Immature granulocytes/100 WBC (Bld) 0 % Normal 0-2 [facility] Work Phone: Comment on above: PATIENT NOT FASTINGP ERFORMED BY: PAUL Allison Kwscjd6635 [facility] [id number] Information: 465848,G05406 Lymphocytes (Bld) [#/Vol] 2.0 {x10E3/uL} Normal 0.7-4.5 [facility] Work Phone: Comment on above: PATIENT NOT FASTINGP ERFORMED BY: PAUL Allison Cyeila5892 [facility] [id number] Information: 691800,G44918 Lymphocytes (Bld) [#/Vol] 2.0 10*3/uL Normal 0.7-4.5 [facility]; [facility] Work Phone: Comment on above: PATIENT NOT FASTINGP ERFORMED BY: PAUL Allison Xvwaxy7555 [facility] [id number] Information: [id number],[id number] Lymphocytes/100 WBC (Bld) 31 % Normal 14-46 [facility] Work Phone: Comment on above: PATIENT NOT FASTINGP ERFORMED BY: PAUL Allison Eykdon3168 [facility] [id number] Information: [id number],[id number] MCH (RBC) [Entitic mass] 28.2 pg Normal 26.6-33.0 [facility] Work Phone: Comment on above: PATIENT NOT FASTINGP ERFORMED BY: Aashish72 [address]dez StreetDublin [place] [id number] Information: [id number] MCHC (RBC) [Mass/Vol] 32.6 g/dL Normal 31.5-35.7 [facility] Internal Medicine Work Phone: Comment on above: PATIENT NOT FASTINGP ERFORMED BY: [address] [id number] Information: [id number] MCV (RBC) [Entitic vol] 87 fL Normal 79-97 [facility] Work Phone: Comment on above: PATIENT NOT FASTINGP ERFORMED BY: [address] [id number] Information: [id number],[id number] Monocytes (Bld) [#/Vol] 0.5 {x10E3/uL} Normal 0.1-1.0 [facility] Internal Medicine Work Phone: Comment on above: PATIENT NOT FASTINGP ERFORMED BY: [facility]6370 [facility] [id number] Information: [id number] Monocytes (Bld) [#/Vol] 0.5 10*3/uL Normal 0.1-1.0 [facility]; [facility] Work Phone: Comment on above: PATIENT NOT FASTINGP ERFORMED BY: [facility]6370 [facility] [id number] Information: [id number] Monocytes/100 WBC (Bld) 7 % Normal 4-13 [facility] Work Phone: Comment on above: PATIENT NOT FASTINGP ERFORMED BY: [place] 7[address] [facility] [id number] Information: 235091,[id number] Neutrophils (Bld) [#/Vol] 3.7 {x10E3/uL} Normal 1.8-7.8 [facility] Work Phone: Comment on above: PATIENT NOT FASTINGP ERFORMED BY: PAUL Allisontamela JarquinZkbwce5797 [facility] [id number] Information: 929266,V59994 Neutrophils (Bld) [#/Vol] 3.7 10*3/uL Normal 1.8-7.8 [facility]; [facility] Work Phone: Comment on above: PATIENT NOT FASTINGP ERFORMED BY: PAUL Allison Sqoiag6735 [facility] [id number] Information: 196011,[id number] Neutrophils/100 WBC (Bld) 59 % Normal 40-74 [facility] Work Phone: Comment on above: PATIENT NOT FASTINGP ERFORMED BY: PAUL Allison Uvnjfu1777 [facility] [id number] Information: 397354,E12665 Platelets (Bld) [#/Vol] 284 {x10E3/uL} Normal 140-415 [facility] Work Phone: Comment on above: PATIENT NOT FASTINGP ERFORMED BY: PAUL lAlison Zxaeck8678 [facility] [id number] Information: 512284,S10887 Platelets (Bld) [#/Vol] 284 10*3/uL Normal 140-415 [facility]; [facility] Work Phone: Comment on above: PATIENT NOT FASTINGP ERFORMED BY: PAUL Allison Xgzldq5713 [facility] [id number] Information: 598242,[id number] RBC (Bld) [#/Vol] 4.43 {x10E6/uL} Normal 3.77-5.28 [facility] Internal Medicine Work Phone: Comment on above: PATIENT NOT FASTINGP ERFORMED BY: PAUL LabBlaise Xeollq6997 [facility] [id number] Information: 578400,[id number] RBC (Bld) [#/Vol] 4.43 10*6/uL Normal 3.77-5.28 [facility] Internal Medicine; [facility] Work Phone: Comment on above: PATIENT NOT FASTINGP ERFORMED BY: PAUL ZendejasMid [facility] Xlzumo9780 [facility] [id number] Information: [id number],[id number] WBC (Bld) [#/Vol] 6.3 {x10E3/uL} Normal 4.0-10.5 Com prehensive [facility] Work Phone: Comment on above: PATIENT NOT FASTINGP ERFORMED BY: [facility]6370 [facility] [id number] Information: 362532,[id number] WBC (Bld) [#/Vol] 6.3 10*3/uL Normal 4.0-10.5 Compre hensive [facility] Medicine; [facility] Work Phone: Comment on above: PATIENT NOT FASTINGP ERFORMED BY: [facility] Mdwioz0035 [facility] [id number] Information: 732305,V86008 EBV Panel (87777)Ordered By: Water Taxi Operator on 10-10-2012 EBV Panel (70335) >8.0 Abnormal 0.0-0.8 Compreh ensive [facility] Work Phone: Comment on above: Negative <0.9 Equivo mara 0.9 - 1.0 Positive >1.0 PATIENT NOT FASTINGP ERFORMED BY: [facility]Children[facility]6370 [facility] [id number] EBV Panel (52608) SPRCS Normal Compreh ensive Internal Medicine Work Phone: Comment on above: EBV Interpretation Bobby tobar . Interpretation VCA-IgM EA-IgG VCA- IgG NA-ABS . Susceptible - - - - Acute Infection + +or- +or- - Convalescent Phase +or- +or- + + Chronic or Reactivated - + + +or- Old Infection - - +or- + + Antibody Present - Antibody Absent PATIENT NOT FASTINGP ERFORMED BY: [facility]6370 [facility] [id number] EBV Panel (17129) 0.3 {AI} Normal 0.0-0.8 Compreh ensive [facility] Work Phone: Comment on above: Negative <0.9 Equivo mara 0.9 - 1.0 Positive >1.0 PATIENT NOT FASTINGP ERFORMED BY: PAUL LabVicky Hvszvs[address] [facility] [place] [id number] EBV Panel (16606) <0.2 Normal 0.0-0.8 Compreh ensive Internal Medicine Work Phone: Comment on above: Negative <0.9 Equivo mara 0.9 - 1.0 Positive >1.0 PATIENT NOT FASTINGP ERFORMED BY: PAUL [facility] Vedyrc[address] [facility] [place] [id number] EBV Panel (86019) 3.3 {AI} Abnormal 0.0-0.8 Compreh ensive Internal Medicine Work Phone: Comment on above: Negative <0.9 Equivo mara 0.9 - 1.0 Positive >1.0 PATIENT NOT FASTINGP ERFORMED BY: PAUL LabVicky PazUnczjb1520 [address] [facility] [id number] METABOLIC PANEL, COMPREHENSI VE (95145)Ordered By: Water Taxi Operator on 10-10-2012 Albumin [Mass/Vol] 4.8 g/dL Normal 3.5-5.5 [facility] Internal Medicine Work Phone: Comment on above: PATIENT NOT FASTINGP ERFORMED BY: PAUL [facility] Biaoxi[address] [facility] [place] [id number] Albumin/Globulin [Mass ratio] 1.9 {ratio} Normal 1.1-2.5 [facility] Work Phone: Comment on above: PATIENT NOT FASTINGP ERFORMED BY: PAUL [facility] Pulvdk4515 [address] [facility] [place] [id number] ALP [Catalytic activity/Vol] 53 [iU]/L Normal 25-150 [facility] Work Phone: Comment on above: PATIENT NOT FASTINGP ERFORMED BY: PAUL [facility] Gqwpfe8842 [address] [facility] [place] [id number] ALP [Catalytic activity/Vol] 53 U/L Normal 25-150 [facility]; [facility] Work Phone: Comment on above: PATIENT NOT FASTINGP ERFORMED BY: PAUL Jarquin6370 [address] RoadDublin [place] [id number] ALT [Catalytic activity/Vol] 18 [iU]/L Normal 0-32 [facility] Work Phone: Comment on above: PATIENT NOT FASTINGP ERFORMED BY: PAUL Pazlin6370 [address] RoadDublin [place] [id number] ALT [Catalytic activity/Vol] 18 U/L Normal 0-32 [facility]; [facility] Work Phone: Comment on above: PATIENT NOT FASTINGP ERFORMED BY: PAUL Pazlin6370 [address] RoadDublin [place] [id number] AST [Catalytic activity/Vol] 14 [iU]/L Normal 0-40 [facility] Work Phone: Comment on above: PATIENT NOT FASTINGP ERFORMED BY: PAUL Jarquin6370 [address] RoadDublin [place] [id number] AST [Catalytic activity/Vol] 14 U/L Normal 0-40 [facility]; [facility] Work Phone: Comment on above: PATIENT NOT FASTINGP ERFORMED BY: PAUL Pazlin6370 [address] RoadDublin [place] [id number] Bilirubin [Mass/Vol] 0.5 mg/dL Normal 0.0-1.2 [facility] Work Phone: Comment on above: PATIENT NOT FASTINGP ERFORMED BY: PAUL Pazlin6370 [address] RoadDublin [place] [id number] Calcium [Mass/Vol] 9.3 mg/dL Normal 8.7-10.2 [facility] Internal Medicine Work Phone: Comment on above: PATIENT NOT FASTINGP ERFORMED BY: PAUL Pazlin6[address] RoadDublin [place] [id number] Chloride [Moles/Vol] 103 mmol/L Normal 97-108 [facility]ensive [facility] Work Phone: Comment on above: PATIENT NOT FASTINGP ERFORMED BY: CB [facility] Plzkck9747 [address] RoadDublin [place] [id number] CO2 [Moles/Vol] 22 mmol/L Normal 20-32 [facility] Internal Medicine Work Phone: Comment on above: PATIENT NOT FASTINGP ERFORMED BY: CB [facility] Mkctwv6959 [address] RoadDublin [place] [id number] Creatinine [Mass/Vol] 0.78 mg/dL Normal 0.57-1.00 [facility] Internal Medicine Work Phone: Comment on above: PATIENT NOT FASTINGP ERFORMED BY: CB [facility] Pmexnn4176 [address] RoadDublin [place] [id number] GFR/1.73 sq M predicted among blacks CKD-EPI (S/P/Bld) [Vol rate/Area] 121 mL/min/1.73 Normal [facility] Internal Medicine Work Phone: Comment on above: PATIENT NOT FASTINGP ERFORMED BY: CB [facility] Uwrkxi0421 [address] RoadDublin [place] [id number] GFR/1.73 sq M predicted among non-blacks CKD-EPI (S/P/Bld) [Vol rate/Area] 105 mL/min/1.73 Normal [facility] Internal Medicine Work Phone: Comment on above: PATIENT NOT FASTINGP ERFORMED BY: CB [facility] Ijfmfj2587 [address] RoadDublin [place] [id number] Globulin (S) [Mass/Vol] 2.5 g/dL Normal 1.5-4.5 [facility] Internal Medicine Work Phone: Comment on above: PATIENT NOT FASTINGP ERFORMED BY: CB [facility] Ynndlp6941 [address] RoadDublin [place] [id number] Glucose [Mass/Vol] 77 mg/dL Normal 65-99 [facility] Internal Medicine Work Phone: Comment on above: PATIENT NOT FASTINGP ERFORMED BY: CB [facility] Mhhafx9970 [address] RoadDublin [place] [id number] Potassium [Moles/Vol] 3.8 mmol/L Normal 3.5-5.2 [facility] Internal Medicine Work Phone: Comment on above: PATIENT NOT FASTINGP ERFORMED BY: CB [facility] Ffoecm1231 [address] RoadDublin [place] [id number] Protein [Mass/Vol] 7.3 g/dL Normal 6.0-8.5 [facility] Internal Medicine Work Phone: Comment on above: PATIENT NOT FASTINGP ERFORMED BY: CB [facility] Nqeohp8514 [address] RoadDublin [place] [id number] Sodium [Moles/Vol] 139 mmol/L Normal 134-144 [facility] Internal Medicine Work Phone: Comment on above: PATIENT NOT FASTINGP ERFORMED BY: CB [facility] Ixtsph7403 [address] RoadDublin [place] [id number] Urea nitrogen [Mass/Vol] 12 mg/dL Normal 6-20 [facility] Internal Medicine Work Phone: Comment on above: PATIENT NOT FASTINGP ERFORMED BY: CB [facility] Kcraqw1230 [address] RoadDublin [place] [id number] Urea nitrogen/Creatinine [Mass ratio] 15 mg/mg Normal 8-20 [facility] Work Phone: Comment on above: PATIENT NOT FASTINGP ERFORMED BY: PAUL [facility] Inadze0640 [address] RoadDublin [place] [id number] TSH (21392)Ordered By: Syste [place] Constable on 10-10-2012 TSH Qn 2.010 {uIU/mL} Normal 0.450-4.50 0 [facility] Work Phone: Comment on above: PATIENT NOT FASTINGP ERFORMED BY: CB [facility] Rsuksm2865 [address] RoadDublin [place] [id number] VITAMIN B-12 (CYANOCOBALAMIN ) (62715)Ordered By: Water Taxi Operator on 10-10-2012 Cobalamin (Vitamin B12) [Mass/Vol] 850 pg/mL Normal 211-946 [facility] Work Phone: Comment on above: PATIENT NOT FASTINGP ERFORMED BY: CB [facility] Hgfqto9271 [address] RoadDublin [place] [id number] Vitamin D Hydroxy (72534)Ord ered By: Water Taxi Operator on 10-10-2012 25-Hydroxyvitamin D2+25-Hydroxyvitamin D3 [Mass/Vol] 30.4 ng/mL Normal 30.0-100.0 [facility] Work Phone: Comment on above: Vitamin D deficiency has been defined by the [place] of[place]icine and an Endocrine Society practice guideline as alevel of serum 25-OH vitamin D less than 20 ng/mL (1,2).The Endocrine Society went on to further define vitamin Dinsufficiency as a level between 21 and 29 ng/mL (2).1. IOM ([place] of Medicine). 2010. Dietary reference intakes for calcium and D. [place]: The National Academies Press.2. Nolberto MF, Isabel MOLINA, Mario ALVAREZ, et al. Evaluation, treatment, and prevention of vitamin D deficiency: an Endocrine Society clinical practice guideline. JCEM. 2010; 96(7):1911-30. PATIENT NOT FASTINGP ERFORMED BY: CB [facility] Rqxntz8827 [address] RoadDublin [place] [id number] HEPATIC FUNCTION PANEL (8007 6)Ordered By: Water Taxi Operator on 07-23-2012 Albumin [Mass/Vol] 5.0 g/dL Normal 3.5-5.5 [facility] Internal Medicine Work Phone: Comment on above: today; PATIENT NOT F ASTINGPERFORMED BY: CB [facility] Homzfm2025 [address] RoadDublin [place] [id number] Information: [id number] ALP [Catalytic activity/Vol] 57 [iU]/L Normal 25-150 [facility] Work Phone: Comment on above: today; PATIENT NOT F ASTINGPERFORMED BY: CB [facility] Hsrzyp5193 [address] RoadDublin [place] [id number] Information: 267630,[id number] ALP [Catalytic activity/Vol] 57 U/L Normal 25-150 [facility]; [facility] Work Phone: Comment on above: today; PATIENT NOT F ASTINGPERFORMED BY: CB [facility] Lcjwwj6336 [address] RoadDublin [place] [id number] Information: 189366,[id number] ALT [Catalytic activity/Vol] 17 [iU]/L Normal 0-32 [facility] Work Phone: Comment on above: today; PATIENT NOT F ASTINGPERFORMED BY: CB [facility] Netqry8480 [address] RoadDublin [place] [id number] Information: 047152,[id number] ALT [Catalytic activity/Vol] 17 U/L Normal 0-32 [facility]; [facility] Work Phone: Comment on above: today; PATIENT NOT F ASTINGPERFORMED BY: CB [facility] Xwmwgl4290 [address] RoadDublin [place] [id number] Information: 695691,H02078 AST [Catalytic activity/Vol] 16 [iU]/L Normal 0-40 [facility] Work Phone: Comment on above: today; PATIENT NOT F ASTINGPERFORMED BY: CB [facility] Bccmhd2327 [address] RoadAtrium Health [facility] [id number] Information: 902118,[id number] AST [Catalytic activity/Vol] 16 U/L Normal 0-40 [facility]; [facility] Work Phone: Comment on above: today; PATIENT NOT F ASTINGPERFORMED BY: CB [facility] Expahj2132 [address] RoadUnc Health Chathamin [place] [id number] Information: 956095,D04568 Bilirubin [Mass/Vol] 0.4 mg/dL Normal 0.0-1.2 [facility] Internal Medicine Work Phone: Comment on above: today; PATIENT NOT F ASTINGPERFORMED BY: CB [facility] Vabjhw1115 [address] RoadDublin [place] [id number] Information: 276304,[id number] Bilirubin.direct [Mass/Vol] 0.14 mg/dL Normal 0.00-0.40 [facility] Work Phone: Comment on above: today; PATIENT NOT F ASTINGPERFORMED BY: CB [facility] Jqohes1126 [address] RoadDuin [place] [id number] Information: 646737,[id number] Protein [Mass/Vol] 7.5 g/dL Normal 6.0-8.5 [facility] Internal Medicine Work Phone: Comment on above: today; PATIENT NOT F ASTINGPERFORMED BY: PAUL [facility] Awmxlb[address] [facility]in [place] [id number] Information: 996627,[id number] HEPATIC FUNCTION PANEL (8007 6)Ordered By: Water Taxi Operator on 06-08-2012 Albumin [Mass/Vol] 4.7 g/dL Normal 3.5-5.5 [facility] Internal Medicine Work Phone: Comment on above: today; PATIENT NOT F ASTINGPERFORMED BY: PAUL [facility] Csjyqr0119 [address] RoadUnc Health Chathamin [place] [id number] Information: 184067,Q40565 ALP [Catalytic activity/Vol] 80 [iU]/L Normal 25-150 [facility] Work Phone: Comment on above: today; PATIENT NOT F ASTINGPERFORMED BY: CB [facility] Hwsepc6058 [address] [facility] [id number] Information: 394161,[id number] ALP [Catalytic activity/Vol] 80 U/L Normal 25-150 [facility]; [facility] Work Phone: Comment on above: today; PATIENT NOT F ASTINGPERFORMED BY: CB [facility] Icdnec6090 [address] [facility] [id number] Information: 233280,[id number] ALT [Catalytic activity/Vol] 17 [iU]/L Normal 0-32 [facility] Work Phone: Comment on above: today; PATIENT NOT F ASTINGPERFORMED BY: CB [facility] Hfhpfd[address] [facility]in [place] [id number] Information: 836992,[id number] ALT [Catalytic activity/Vol] 17 U/L Normal 0-32 [facility]; [facility] Work Phone: Comment on above: today; PATIENT NOT F ASTINGPERFORMED BY: CB [facility] Sldwjy5729 [address] RoadDublin [place] [id number] Information: 396549,[id number] AST [Catalytic activity/Vol] 16 [iU]/L Normal 0-40 [facility] Work Phone: Comment on above: today; PATIENT NOT F ASTINGPERFORMED BY: CB [facility] Ekhisi7575 [address] RoadDublin [place] [id number] Information: 726378,S02597 AST [Catalytic activity/Vol] 16 U/L Normal 0-40 [facility]; [facility] Work Phone: Comment on above: today; PATIENT NOT F ASTINGPERFORMED BY: CB [facility] Xdvzhr9818 [address] RoadDublin [place] [id number] Information: 031751,[id number] Bilirubin [Mass/Vol] 0.4 mg/dL Normal 0.0-1.2 [facility] Internal Medicine Work Phone: Comment on above: today; PATIENT NOT F ASTINGPERFORMED BY: CB [facility] Xkyuqg4112 [address] RoadDublin [place] [id number] Information: 143241,X22211 Bilirubin.direct [Mass/Vol] 0.13 mg/dL Normal 0.00-0.40 [facility] Internal Medicine Work Phone: Comment on above: today; PATIENT NOT F ASTINGPERFORMED BY: CB [facility] Ncvyqd8226 [address] RoadDublin [place] [id number] Information: 160065,Y74305 Protein [Mass/Vol] 7.7 g/dL Normal 6.0-8.5 [facility] Internal Medicine Work Phone: Comment on above: today; PATIENT NOT F ASTINGPERFORMED BY: CB [facility] Sypray8789 [address] RoadDublin [place] [id number] Information: 521527,[id number] Vitamin D Hydroxy (87818)Ord ered By: Water Taxi Operator on 06-08-2012 25-Hydroxyvitamin D2+25-Hydroxyvitamin D3 [Mass/Vol] 29.4 ng/mL Abnormal 30.0-100.0 [facility] Work Phone: Comment on above: Vitamin D deficiency has been defined by the [place] ofMedicine and an Endocrine Society practice guideline as alevel of serum 25-OH vitamin D less than 20 ng/mL (1,2).The Endocrine Society went on to further define vitamin Dinsufficiency as a level between 21 and 29 ng/mL (2).1. IOM ([place] of [employer]). 2010. Dietary reference intakes for calcium and D. [place]: The National AcademMonumental Games Press.2. Nolberto MF, Isabel NC, Mario ALVAREZ, et al. Evaluation, treatment, and prevention of vitamin D deficiency: an Endocrine Society clinical practice guideline. JCEM. 2010; 96(7):1911-30. PATIENT NOT FASTINGP ERFORMED BY: CB [facility] Cwzfsf06[address] [employer] Network Solutionsblin [place] [id number] C-REACTIVE PROTEIN (97858)Or dered By: Water Taxi Operator on 02-16-2010 CRP [Mass/Vol] 0.6 mg/L Normal 0.0-4.[address] [facility] Internal Medicine Work Phone: Comment on above: PATIENT NOT FASTINGP ERFORMED BY: CB [facility] Lgwpgg0742 [address] RoadDublin [place] [id number] CBC WITH MANUAL DIFF (73658) Ordered By: Water Taxi Operator on 02-16-2010 Basophils (Bld) [#/Vol] 0.0 {x10E3/uL} Normal 0.0-0.2 [facility] Work Phone: Comment on above: PATIENT NOT FASTINGP ERFORMED BY: CB [facility] Aywfod0565 [address] RoadDublin [place] [id number] Information: [id number] Basophils (Bld) [#/Vol] 0.0 10*3/uL Normal 0.0-0.2 [facility]; [facility] Work Phone: Comment on above: PATIENT NOT FASTINGP ERFORMED BY: CB [facility] Fhtebm5280 [address] RoadDublin [place] [id number] Information: 099220,[id number] Basophils/100 WBC (Bld) 1 % Normal 0-3 [facility] Work Phone: Comment on above: PATIENT NOT FASTINGP ERFORMED BY: PAUL LabCotamela PazMtvruf3243 [facility] [id number] Information: 125804,D48670 Eosinophils (Bld) [#/Vol] 0.2 {x10E3/uL} Normal 0.0-0.4 [facility] Work Phone: Comment on above: PATIENT NOT FASTINGP ERFORMED BY: LabTaylor Ville 5574970 [facility] [id number] Information: 080233,[id number] Eosinophils (Bld) [#/Vol] 0.2 10*3/uL Normal 0.0-0.4 [facility]; [facility] Work Phone: Comment on above: PATIENT NOT FASTINGP ERFORMED BY: LabTaylor Ville 5574970 [facility] [id number] Information: 005637,A78877 Eosinophils/100 WBC (Bld) 3 % Normal 0-7 [facility] Work Phone: Comment on above: PATIENT NOT FASTINGP ERFORMED BY: LabTaylor Ville 5574970 [facility] [id number] Information: 932010,S87511 Erythrocyte distribution width (RBC) [Ratio] 13.3 % Normal 11.7-15.0 [facility] Work Phone: Comment on above: PATIENT NOT FASTINGP ERFORMED BY: [facility]6370 [facility] [id number] Information: [id number],G26520 Hematocrit (Bld) [Volume fraction] 38.9 % Normal 34.0-44.0 [facility] Work Phone: Comment on above: PATIENT NOT FASTINGP ERFORMED BY: LabTaylor Ville 5574970 [facility] [id number] Information: 250813,G12521 Hemoglobin (Bld) [Mass/Vol] 12.9 g/dL Normal 11.5-15.0 [facility] Work Phone: Comment on above: PATIENT NOT FASTINGP ERFORMED BY: PAUL Jarquin6370 [facility] [id number] Information: 552433,D41352 Immature granulocytes (Bld) [#/Vol] 0.0 {x10E3/uL} Normal 0.0-0.1 [facility] Work Phone: Comment on above: PATIENT NOT FASTINGP ERFORMED BY: [address] [id number] Information: [id number] Immature granulocytes (Bld) [#/Vol] 0.0 10*3/uL Normal 0.0-0.1 [facility]; [facility] Work Phone: Comment on above: PATIENT NOT FASTINGP ERFORMED BY: PAUL AllisonAnthony V[place] [id number] [facility] [id number] Information: [id number] Immature granulocytes/100 WBC (Bld) 0 % Normal 0-1 [facility] Work Phone: Comment on above: PATIENT NOT FASTINGP ERFORMED BY: PAUL Allison Wiadnq4468 [facility] [id number] Information: [id number] Lymphocytes (Bld) [#/Vol] 1.7 {x10E3/uL} Normal 0.7-4.5 [facility] Work Phone: Comment on above: PATIENT NOT FASTINGP ERFORMED BY: [facility]6370 [facility] [id number] Information: [id number] Lymphocytes (Bld) [#/Vol] 1.7 10*3/uL Normal 0.7-4.5 [facility]; [facility] Work Phone: Comment on above: PATIENT NOT FASTINGP ERFORMED BY: LabTaylor Ville 5574970 [facility] [id number] Information: 257624,C10074 Lymphocytes/100 WBC (Bld) 29 % Normal 14-46 [facility] Work Phone: Comment on above: PATIENT NOT FASTINGP ERFORMED BY: PAUL AllisonSaint Clare's Hospital at DenvilleKejfte8229 [facility] [id number] Information: 558593,Q48632 MCH (RBC) [Entitic mass] 29.1 pg Normal 27.0-34.0 [facility] Internal Medicine Work Phone: Comment on above: PATIENT NOT FASTINGP ERFORMED BY: [address] [id number] Information: [id number] MCHC (RBC) [Mass/Vol] 33.2 g/dL Normal 32.0-36.0 [facility] Internal Medicine Work Phone: Comment on above: PATIENT NOT FASTINGP ERFORMED BY: [place] [address] [facility] [id number] Information: [id number] MCV (RBC) [Entitic vol] 88 fL Normal 80-98 [facility] Internal Medicine Work Phone: Comment on above: PATIENT NOT FASTINGP ERFORMED BY: PAUL Kendra [place] [address] [facility] [id number] Information: 621712,[id number] Monocytes (Bld) [#/Vol] 0.5 {x10E3/uL} Normal 0.1-1.0 [facility] Internal Medicine Work Phone: Comment on above: PATIENT NOT FASTINGP ERFORMED BY: [facility]6370 [facility] [id number] Information: [id number],[id number] Monocytes (Bld) [#/Vol] 0.5 10*3/uL Normal 0.1-1.0 [facility]; [facility] Work Phone: Comment on above: PATIENT NOT FASTINGP ERFORMED BY: [place] 7358270 [facility] [place] [id number] Information: 940803,[id number] Monocytes/100 WBC (Bld) 9 % Normal 4-13 [facility] Work Phone: Comment on above: PATIENT NOT FASTINGP ERFORMED BY: PAUL Jarquin[address] [facility] [id number] Information: [id number],[id number] Neutrophils (Bld) [#/Vol] 3.5 {x10E3/uL} Normal 1.8-7.8 [facility] Work Phone: Comment on above: PATIENT NOT FASTINGP ERFORMED BY: PAUL LabCotamela JarquinPmgtiu[address] [facility] [id number] Information: [id number],[id number] Neutrophils (Bld) [#/Vol] 3.5 10*3/uL Normal 1.8-7.8 [facility]; [facility] Work Phone: Comment on above: PATIENT NOT FASTINGP ERFORMED BY: PAUL [facility] Wzcnzb7[address] [facility] [id number] Information: [id number],[id number] Neutrophils/100 WBC (Bld) 58 % Normal 40-74 [facility] Work Phone: Comment on above: PATIENT NOT FASTINGP ERFORMED BY: PAUL [facility] Pomcll[address] [facility] [id number] Information: [id number] Platelets (Bld) [#/Vol] 273 {x10E3/uL} Normal 140-415 [facility] Work Phone: Comment on above: PATIENT NOT FASTINGP ERFORMED BY: CB [facility] Lzusye[address] [facility] Hospitalin [place] [id number] Information: [id number] Platelets (Bld) [#/Vol] 273 10*3/uL Normal 140-415 [facility]; [facility] Work Phone: Comment on above: PATIENT NOT FASTINGP ERFORMED BY: CB [facility] Flzdjn[address] [facility] [id number] Information: [id number] RBC (Bld) [#/Vol] 4.44 {x10E6/uL} Normal 3.80-5.10 [facility] Internal Medicine Work Phone: Comment on above: PATIENT NOT FASTINGP ERFORMED BY: PAUL Allison Cygsda1748 [facility] [id number] Information: 905048,[id number] RBC (Bld) [#/Vol] 4.44 10*6/uL Normal 3.80-5.10 [facility] Internal Medicine; [facility] Work Phone: Comment on above: PATIENT NOT FASTINGP ERFORMED BY: PAUL Allison Wusawg8083 [facility] [id number] Information: 209266,[id number] WBC (Bld) [#/Vol] 5.9 {x10E3/uL} Normal 4.0-10.5 [facility] Internal Medicine Work Phone: Comment on above: PATIENT NOT FASTINGP ERFORMED BY: [facility]Mid [facility] Bxmkfa6749 [facility] [id number] Information: [id number],[id number] WBC (Bld) [#/Vol] 5.9 10*3/uL Normal 4.0-10.5 [facility] Internal Medicine; [facility] Work Phone: Comment on above: PATIENT NOT FASTINGP ERFORMED BY: AashishMid [facility] Pgihkm5719 [facility] [id number] Information: [id number] LDH (LD) (LACTATE DEHYDROGEN ASE) (39776)Ordered By: Water Taxi Operator on 02-16-2010 LDH [Catalytic activity/Vol] 135 [iU]/L Normal 100-250 [facility] Work Phone: Comment on above: PATIENT NOT FASTINGP ERFORMED BY: [facility]6370 [facility] [id number] LDH [Catalytic activity/Vol] 135 U/L Normal 100-250 [facility]; [facility] Work Phone: Comment on above: PATIENT NOT FASTINGP ERFORMED BY: CB [facility] Wraeil0626 [address] RoadDublin [place] [id number] METABOLIC PANEL, COMPREHENSI VE (70002)Ordered By: Water Taxi Operator on 02-16-2010 Albumin [Mass/Vol] 4.7 g/dL Normal 3.5-5.5 [facility] Internal Medicine Work Phone: Comment on above: PATIENT NOT FASTINGP ERFORMED BY: CB [facility] Vaivuj9309 [address] RoadDublin [place] [id number] Albumin/Globulin [Mass ratio] 2.0 {ratio} Normal 1.1-2.5 [facility] Work Phone: Comment on above: PATIENT NOT FASTINGP ERFORMED BY: CB [facility] Vgnsmr1034 [address] RoadDublin [place] [id number] ALP [Catalytic activity/Vol] 78 [iU]/L Normal 25-150 [facility] Work Phone: Comment on above: PATIENT NOT FASTINGP ERFORMED BY: CB [facility] Ouqbmj4721 [address] RoadDublin [place] [id number] ALP [Catalytic activity/Vol] 78 U/L Normal 25-150 [facility]; [facility] Work Phone: Comment on above: PATIENT NOT FASTINGP ERFORMED BY: CB [facility] Vdlzzq5383 [address] RoadDublin [place] [id number] ALT [Catalytic activity/Vol] 22 [iU]/L Normal 0-40 [facility] Work Phone: Comment on above: PATIENT NOT FASTINGP ERFORMED BY: CB [facility] Mfxmus9083 [address] RoadDublin [place] [id number] ALT [Catalytic activity/Vol] 22 U/L Normal 0-40 [facility]; [facility] Work Phone: Comment on above: PATIENT NOT FASTINGP ERFORMED BY: CB [facility] Okcqvl6154 [address] RoadDublin [place] [id number] AST [Catalytic activity/Vol] 19 [iU]/L Normal 0-40 [facility] Work Phone: Comment on above: PATIENT NOT FASTINGP ERFORMED BY: CB [facility] Sqxctx4286 [address] RoadDublin [place] [id number] AST [Catalytic activity/Vol] 19 U/L Normal 0-40 [facility]; [facility] Work Phone: Comment on above: PATIENT NOT FASTINGP ERFORMED BY: CB [facility] Lswahs1373 [address] RoadDublin [place] [id number] Bilirubin [Mass/Vol] 0.3 mg/dL Normal 0.0-1.2 Comp rehensive Internal Medicine Work Phone: Comment on above: PATIENT NOT FASTINGP ERFORMED BY: CB [facility] Hagsmc0084 [address] RoadDublin [place] [id number] Calcium [Mass/Vol] 9.4 mg/dL Normal 8.7-10.2 [facility] Internal Medicine Work Phone: Comment on above: PATIENT NOT FASTINGP ERFORMED BY: CB [facility] Qtobsc9717 [address] RoadDublin [place] [id number] Chloride [Moles/Vol] 103 mmol/L Normal 97-108 Comp [facility] hospitalensive Internal [facility] Work Phone: Comment on above: PATIENT NOT FASTINGP ERFORMED BY: CB [facility] Zghgwj8550 [address] RoadDublin [place] [id number] CO2 [Moles/Vol] 25 mmol/L Normal 20-32 [facility] Internal Medicine Work Phone: Comment on above: PATIENT NOT FASTINGP ERFORMED BY: CB [facility] Dtnxxe0773 [address] RoadDublin [place] [id number] Creatinine [Mass/Vol] 0.84 mg/dL Normal 0.57-1.00 [facility] Work Phone: Comment on above: PATIENT NOT FASTINGP ERFORMED BY: CB [facility] Kfdhir7158 [address] RoadDublin [place] [id number] GFR/1.73 sq M predicted among blacks MDRD (S/P/Bld) [Vol rate/Area] mL/min/{1.73_m2} Normal [facility] Internal Medicine Work Phone: Comment on above: Note: Persistent red uction for 3 months or more in an eGFR<60 mL/min/1.73 m2 defines CKD. Patients with eGFR values>/=60 mL/min/1.73 m2 may also have CKD if evidence of persistentproteinuria is present. Additional information may be found [email or web address].org. PATIENT NOT FASTINGP ERFORMED BY: CB [facility] Vgtbld0959 [address] RoadDublin [place] [id number] GFR/1.73 sq M.predicted MDRD (S/P/Bld) [Vol rate/Area] mL/min/{1.73_m2} Normal [facility] Internal Medicine Work Phone: Comment on above: PATIENT NOT FASTINGP ERFORMED BY: CB [facility] Qbxyiu7056 [address] RoadDublin [place] [id number] Globulin (S) [Mass/Vol] 2.3 g/dL Normal 1.5-4.5 [facility] Internal Medicine Work Phone: Comment on above: PATIENT NOT FASTINGP ERFORMED BY: CB [facility] Jyhnjm2476 [address] RoadDublin [place] [id number] Glucose [Mass/Vol] 84 mg/dL Normal 65-99 [facility] Internal Medicine Work Phone: Comment on above: PATIENT NOT FASTINGP ERFORMED BY: CB [facility] Mwmfgh0772 [address] RoadDublin [place] [id number] Potassium [Moles/Vol] 4.0 mmol/L Normal 3.5-5.2 [facility] Internal Medicine Work Phone: Comment on above: PATIENT NOT FASTINGP ERFORMED BY: CB [facility] Mmzmgi9724 [address] RoadDublin [place] [id number] Protein [Mass/Vol] 7.0 g/dL Normal 6.0-8.5 [facility] Internal Medicine Work Phone: Comment on above: PATIENT NOT FASTINGP ERFORMED BY: CB [facility] Bencwe4430 [address] RoadDublin [place] [id number] Sodium [Moles/Vol] 140 mmol/L Normal 135-145 [facility] Internal Medicine Work Phone: Comment on above: PATIENT NOT FASTINGP ERFORMED BY: PAUL [facility] Nqrgyi2914 [facility] [id number] Urea nitrogen [Mass/Vol] 10 mg/dL Normal 5-26 [facility] Work Phone: Comment on above: PATIENT NOT FASTINGP ERFORMED BY: [facility] Xfqkwp5328 [facility] [id number] Urea nitrogen/Creatinine [Mass ratio] 12 mg/mg Normal 8-27 [facility] Work Phone: Comment on above: PATIENT NOT FASTINGP ERFORMED BY: PAUL [facility] Dgieih3738 [facility] [id number] SED RATE ERYTHROCYTE (26601) Ordered By: Water Taxi Operator on 02-16-2010 ESR (Bld) [Velocity] 2 mm/h Normal 0-20 [facility] Internal Medicine Work Phone: Comment on above: PATIENT NOT FASTINGP ERFORMED BY: [facility] Edkuje1287 [facility] [id number] TSH (61727)Ordered By: Adriana m [place] Constable on 02-16-2010 TSH Qn 1.580 {uIU/mL} Normal 0.450-4.50 0 [facility] Work Phone: Comment on above: PATIENT NOT FASTINGP ERFORMED BY: [facility] Ggugbr5026 [facility] [id number] CBC WITH MANUAL DIFF (45044) Ordered By: Water Taxi Operator on 09-24-2009 Basophils (Bld) [#/Vol] 0.1 {x10E3/uL} Normal 0.0-0.2 [facility] Work Phone: Comment on above: PATIENT WAS FASTINGP ERFORMED BY: PAUL [facility] Guwiff7020 [facility] [id number] Information: [id number] Basophils (Bld) [#/Vol] 0.1 10*3/uL Normal 0.0-0.2 [facility]; [facility] Work Phone: Comment on above: PATIENT WAS FASTINGP ERFORMED BY: PAUL ZendejasMid [facility] Tysftk9101 [facility] [id number] Information: 817295,[id number] Basophils/100 WBC (Bld) 1 % Normal 0-3 [facility] Work Phone: Comment on above: PATIENT WAS FASTINGP ERFORMED BY: [address] [id number] Information: 164715,[id number] Eosinophils (Bld) [#/Vol] 0.1 {x10E3/uL} Normal 0.0-0.4 [facility] Work Phone: Comment on above: PATIENT WAS FASTINGP ERFORMED BY: [address] [id number] Information: 399991,[id number] Eosinophils (Bld) [#/Vol] 0.1 10*3/uL Normal 0.0-0.4 [facility]; [facility] Work Phone: Comment on above: PATIENT WAS FASTINGP ERFORMED BY: PAUL Allison[address] [id number] Information: 120392,[id number] Eosinophils/100 WBC (Bld) 2 % Normal 0-7 [facility] Work Phone: Comment on above: PATIENT WAS FASTINGP ERFORMED BY: [place] [address]270 [facility] [id number] Information: 110330,[id number] Erythrocyte distribution width (RBC) [Ratio] 13.6 % Normal 11.7-15.0 [facility] Work Phone: Comment on above: PATIENT WAS FASTINGP ERFORMED BY: [place] 7[address]270 [facility] [id number] Information: 830467,Z03577 Hematocrit (Bld) [Volume fraction] 40.3 % Normal 34.0-44.0 [facility] Work Phone: Comment on above: PATIENT WAS FASTINGP ERFORMED BY: [place] [address]270 [facility] [id number] Information: 253738,V20897 Hemoglobin (Bld) [Mass/Vol] 13.9 g/dL Normal 11.5-15.0 [facility] Work Phone: Comment on above: PATIENT WAS FASTINGP ERFORMED BY: [address] [id number] Information: 800051,[id number] Lymphocytes (Bld) [#/Vol] 2.0 {x10E3/uL} Normal 0.7-4.5 [facility] Work Phone: Comment on above: PATIENT WAS FASTINGP ERFORMED BY: [address] [id number] Information: 678008,[id number] Lymphocytes (Bld) [#/Vol] 2.0 10*3/uL Normal 0.7-4.5 [facility]; [facility] Work Phone: Comment on above: PATIENT WAS FASTINGP ERFORMED BY: [address] [id number] Information: 264650,[id number] Lymphocytes/100 WBC (Bld) 32 % Normal 14-46 [facility] Work Phone: Comment on above: PATIENT WAS FASTINGP ERFORMED BY: [place] [address] [facility] [id number] Information: 563714,[id number] MCH (RBC) [Entitic mass] 30.2 pg Normal 27.0-34.0 [facility] Work Phone: Comment on above: PATIENT WAS FASTINGP ERFORMED BY: [place] [address]270 [facility] [id number] Information: 726337,[id number] MCHC (RBC) [Mass/Vol] 34.5 g/dL Normal 32.0-36.0 [facility] Work Phone: Comment on above: PATIENT WAS FASTINGP ERFORMED BY: PAUL Darlene Jarquin6370 [facility] [id number] Information: 907153,[id number] MCV (RBC) [Entitic vol] 88 fL Normal 80-98 [facility] Work Phone: Comment on above: PATIENT WAS FASTINGP ERFORMED BY: PAUL Keegan Izkuwz[address] [id number] Information: [id number],[id number] Monocytes (Bld) [#/Vol] 0.4 {x10E3/uL} Normal 0.1-1.0 [facility] Internal Medicine Work Phone: Comment on above: PATIENT WAS FASTINGP ERFORMED BY: PAUL Keegan Fexijb97[address] [id number] Information: 101496,[id number] Monocytes (Bld) [#/Vol] 0.4 10*3/uL Normal 0.1-1.0 [facility]; [facility] Work Phone: Comment on above: PATIENT WAS FASTINGP ERFORMED BY: PAUL Keegantamela Qwcaqv1347 [facility] [id number] Information: [id number],[id number] Monocytes/100 WBC (Bld) 6 % Normal 4-13 [facility] Work Phone: Comment on above: PATIENT WAS FASTINGP ERFORMED BY: PAUL A[facility]ishChildren[facility]S [facility]6370 [facility] [id number] Information: 430201,[id number] Neutrophils (Bld) [#/Vol] 3.8 {x10E3/uL} Normal 1.8-7.8 [facility] Internal Medicine Work Phone: Comment on above: PATIENT WAS FASTINGP ERFORMED BY: PAUL AashishChildren'S Hospital [facility]6370 [facility] [id number] Information: 888637,[id number] Neutrophils (Bld) [#/Vol] 3.8 10*3/uL Normal 1.8-7.8 [facility] Internal Medicine; [facility] Work Phone: Comment on above: PATIENT WAS FASTINGP ERFORMED BY: PAUL MillerFirstHealth [facility] [id number] Information: 238100,[id number] Neutrophils/100 WBC (Bld) 59 % Normal 40-74 [facility] Work Phone: Comment on above: PATIENT WAS FASTINGP ERFORMED BY: PAUL Jarquin6370 [facility] [id number] Information: 174385,[id number] Platelets (Bld) [#/Vol] 275 {x10E3/uL} Normal 140-415 [facility] Internal Medicine Work Phone: Comment on above: PATIENT WAS FASTINGP ERFORMED BY: PAUL Pazlin6370 [facility] [id number] Information: [id number] Platelets (Bld) [#/Vol] 275 10*3/uL Normal 140-415 [facility]; [facility] Work Phone: Comment on above: PATIENT WAS FASTINGP ERFORMED BY: PAUL Jarquin6370 [facility] [id number] Information: 649342,[id number] RBC (Bld) [#/Vol] 4.59 {x10E6/uL} Normal 3.80-5.10 [facility] Internal Medicine Work Phone: Comment on above: PATIENT WAS FASTINGP ERFORMED BY: PAUL Allison Adljab8270 [facility] [id number] Information: 166182,[id number] RBC (Bld) [#/Vol] 4.59 10*6/uL Normal 3.80-5.10 [facility] Internal Medicine; [facility] Work Phone: Comment on above: PATIENT WAS FASTINGP ERFORMED BY: PAUL [facility] Uvvjrs9092 [facility] [id number] Information: [id number] WBC (Bld) [#/Vol] 6.4 {x10E3/uL} Normal 4.0-10.5 [facility] prehensive Internal Medicine Work Phone: Comment on above: PATIENT WAS FASTINGP ERFORMED BY: PAUL Pazlin[address] [facility] RegionD[place] [id number] Information: 550376,[id number] WBC (Bld) [#/Vol] 6.4 10*3/uL Normal 4.0-10.5 [facility] Internal Medicine; [facility] Work Phone: Comment on above: PATIENT WAS FASTINGP ERFORMED BY: PAUL LabCotamela PazRzxoeg4408 [facility] [id number] Information: 441526,[id number] LIPID PANEL (82120)Ordered B y: Water Taxi Operator on 09-24-2009 Cholesterol [Mass/Vol] 135 mg/dL Normal 100-199 [facility] Work Phone: Comment on above: PATIENT WAS FASTINGP ERFORMED BY: PAUL [facility] Pbzfgk5848 [facility] [id number] Cholesterol in HDL [Mass/Vol] 59 mg/dL Normal [facility] Work Phone: Comment on above: According to ATP-III Guidelines, HDL-C >59 mg/dL is considered anegative risk factor for CHD. PATIENT WAS FASTINGP ERFORMED BY: PAUL [facility] Fxlouz4[address] [facility] [id number] Cholesterol in LDL [Mass/Vol] 57 mg/dL Normal 0-99 [facility] Work Phone: Comment on above: PATIENT WAS FASTINGP ERFORMED BY: PAUL [facility] Rdutmw2178 [address] [facility] Childrenbl[facility] [place] [id number] Cholesterol in LDL/Cholesterol in HDL [Mass ratio] 1.0 {ratio_units} Normal 0.0-3.2 [facility] Work Phone: Comment on above: PATIENT WAS FASTINGP ERFORMED BY: CB [facility] Ossfjf7831 [address] [facility] RegionD[place] [id number] Cholesterol in VLDL [Mass/Vol] 19 mg/dL Normal 5-40 [facility] Work Phone: Comment on above: PATIENT WAS FASTINGP ERFORMED BY: PAUL [facility] Qewwmz1346 [address] RoadDublin [place] [id number] Triglyceride [Mass/Vol] 96 mg/dL Normal 0-149 [facility] Work Phone: Comment on above: PATIENT WAS FASTINGP ERFORMED BY: PAUL [facility] Ewoyrp0405 [address] RoadDublin [place] [id number] METABOLIC PANEL, COMPREHENSI VE (67541)Ordered By: Water Taxi Operator on 09-24-2009 Albumin [Mass/Vol] 4.6 g/dL Normal 3.5-5.5 [facility] Internal Medicine Work Phone: Comment on above: PATIENT WAS FASTINGP ERFORMED BY: PAUL [facility] Yzgmxo9820 [address] RoadDublin [place] [id number] Albumin/Globulin [Mass ratio] 1.6 {ratio} Normal 1.1-2.5 [facility] Work Phone: Comment on above: PATIENT WAS FASTINGP ERFORMED BY: PAUL [facility] Xzcwtd6984 [address] RoadDublin [place] [id number] ALP [Catalytic activity/Vol] 72 [iU]/L Normal 25-150 [facility] Work Phone: Comment on above: PATIENT WAS FASTINGP ERFORMED BY: PAUL [facility] Smbsoq4201 [address] RoadDublin [place] [id number] ALP [Catalytic activity/Vol] 72 U/L Normal 25-150 [facility]; [facility] Work Phone: Comment on above: PATIENT WAS FASTINGP ERFORMED BY: CB [facility] Gbileq0861 [address] RoadDublin [place] [id number] ALT [Catalytic activity/Vol] 14 [iU]/L Normal 0-40 [facility] Work Phone: Comment on above: PATIENT WAS FASTINGP ERFORMED BY: CB [facility] Ivwsgx1380 [address] RoadDublin [place] [id number] ALT [Catalytic activity/Vol] 14 U/L Normal 0-40 [facility]; [facility] Work Phone: Comment on above: PATIENT WAS FASTINGP ERFORMED BY: PAUL Keegan Eaghth0682 [facility] [id number] AST [Catalytic activity/Vol] 17 [iU]/L Normal 0-40 [facility] Work Phone: Comment on above: PATIENT WAS FASTINGP ERFORMED BY: [facility]6370 [facility] [id number] AST [Catalytic activity/Vol] 17 U/L Normal 0-40 [facility]; [facility] Work Phone: Comment on above: PATIENT WAS FASTINGP ERFORMED BY: PAUL AashishMid [facility] Center Gtinid7182 [facility] [id number] Bilirubin [Mass/Vol] 0.4 mg/dL Normal 0.1-1.2 Comp rehensive Internal Medicine Work Phone: Comment on above: Effective September, Bilirubin, Total,reference interval will be changing to: mg/dLNewborns, term and near term:24 hours old: 0.0 - 8.048 hours old: 0.0 - 13.272 hours old: 0.0 - 15.696 hours to 1 month old: 0.0 - 16.6Children 1 month and older andAdults: 0.0 - 1.2.*Panic value will be changed such that results*>17.0 mg/dL will be called as panics. PATIENT WAS FASTINGP ERFORMED BY: [facility]6370 [facility] [id number] Calcium [Mass/Vol] 9.2 mg/dL Normal 8.7-10.2 [facility] Internal Medicine Work Phone: Comment on above: PATIENT WAS FASTINGP ERFORMED BY: [facility]6370 [facility] [id number] Chloride [Moles/Vol] 104 mmol/L Normal 97-108 Comp [facility]ensive Internal Medicine Work Phone: Comment on above: PATIENT WAS FASTINGP ERFORMED BY: [facility] [id number] [address] RoadUnc [facility] [place] [id number] CO2 [Moles/Vol] 23 mmol/L Normal 20-32 [facility] Internal Medicine Work Phone: Comment on above: PATIENT WAS FASTINGP ERFORMED BY: [facility] [id number] [address] [facility] [id number] Creatinine [Mass/Vol] 0.90 mg/dL Normal 0.57-1.00 [facility] Internal Medicine Work Phone: Comment on above: PATIENT WAS FASTINGP ERFORMED BY: [facility] [id number] [address] [facility] [id number] GFR/1.73 sq M predicted among blacks MDRD (S/P/Bld) [Vol rate/Area] mL/min/{1.73_m2} Normal [facility] Internal Medicine Work Phone: Comment on above: Note: Persistent red uction for 3 months or more in an eGFR<60 mL/min/1.73 m2 defines CKD. Patients with eGFR values>/=60 mL/min/1.73 m2 may also have CKD if evidence of persistentproteinuria is present. Additional information may be found [email or web address]. PATIENT WAS FASTINGP ERFORMED BY: [facility] [id number] [facility] [id number] GFR/1.73 sq M.predicted MDRD (S/P/Bld) [Vol rate/Area] mL/min/{1.73_m2} Normal [facility] Work Phone: Comment on above: PATIENT WAS FASTINGP ERFORMED BY: [facility] [id number] [facility] [id number] Globulin (S) [Mass/Vol] 2.8 g/dL Normal 1.5-4.5 [facility] Internal Medicine Work Phone: Comment on above: PATIENT WAS FASTINGP ERFORMED BY: [facility] [id number] [address] [facility] [id number] Glucose [Mass/Vol] 84 mg/dL Normal 65-99 [facility] Internal Medicine Work Phone: Comment on above: PATIENT WAS FASTINGP ERFORMED BY: PAUL [facility] [id number] [address]quin RoadDublin [place] [id number] Potassium [Moles/Vol] 4.3 mmol/L Normal 3.5-5.2 [facility] Internal Medicine Work Phone: Comment on above: PATIENT WAS FASTINGP ERFORMED BY: PAUL [facility] [id number] [address] [facility] [id number] Protein [Mass/Vol] 7.4 g/dL Normal 6.0-8.5 [facility] Internal Medicine Work Phone: Comment on above: PATIENT WAS FASTINGP ERFORMED BY: PAUL [facility] [id number] [facility] [id number] Sodium [Moles/Vol] 139 mmol/L Normal 135-145 [facility] Internal Medicine Work Phone: Comment on above: PATIENT WAS FASTINGP ERFORMED BY: PAUL [facility] [id number] [address] [facility] [id number] Urea nitrogen [Mass/Vol] 12 mg/dL Normal 5-26 [facility] Internal Medicine Work Phone: Comment on above: PATIENT WAS FASTINGP ERFORMED BY: PAUL [facility] [id number] [facility] [id number] Urea nitrogen/Creatinine [Mass ratio] 13 mg/mg Normal 8-27 [facility] Internal Medicine Work Phone: Comment on above: PATIENT WAS FASTINGP ERFORMED BY: PAUL [facility] [id number] [address] [facility] [id number] TSH ([id number])Ordered By: Adriana m [place] on 09-24-2009 TSH Qn 1.700 {uIU/mL} Normal 0.450-4.50 0 [facility] Internal Medicine Work Phone: Comment on above: PATIENT WAS FASTINGP ERFORMED BY: PAUL [facility] [id number] [place] [id number] Vital Signs Date Time Vital Sign Value Performing Clinician Facility 09-29-2022 08:12-0400 Body height 162.[address] Elda Joy Work Phone: [facility] 09-29-2022 08:12-0400 Body mass index (BMI) [Ratio] 24 kg/m2 Dr. Elda Joy Work Phone: [facility] 09-29-2022 08:12-0400 Body weight 63.[address] Elda Joy Work Phone: [facility] 09-29-2022 08:12-0400 Diastolic blood pressure 60 mm[Hg] Dr. Elda Joy Work Phone: [facility] 09-29-2022 08:12-0400 Systolic blood pressure 112 mm[Hg] Dr. Elda Joy Work Phone: [facility] 07-14-2022 08:53-0500 Body height 162.[address] Elda Joy Work Phone: [facility] 07-14-2022 08:52-0500 Body mass index (BMI) [Ratio] 23.8 kg/m2 Dr. Elda Joy Work Phone: [facility] 07-14-2022 08:52-0500 Body weight 63.[address] Elda Joy Work Phone: [facility] 07-14-2022 08:52-0500 Diastolic blood pressure 78 mm[Hg] Dr. Elda Joy Work Phone: [facility] 07-14-2022 08:52-0500 Systolic blood pressure 120 mm[Hg] Dr. Elda Joy Work Phone: [facility] 04-25-2019 13:28-0500 BMI (Body Mass Index) 22.48 kg/m2 Franchesca Cleary RN [facility] Work Phone: 04-25-2019 13:28-0500 Body Temperature 98.2 [degF] Franchesca Cleary RN [facility] Work Phone: Comment on above: Method: Temporal 04-25-2019 13:28-0500 Body weight 59.88 kg Franchesca Cleary RN [facility] Work Phone: 04-25-2019 13:28-0500 BP Diastolic 80 mm[Hg] Franchesca Cleary RN [facility] Work Phone: Comment on above: Patient Position: Sitting; Cuff Location : Left Arm; Cuff Size: Standard 04-25-2019 13:28-0500 BP Systolic 120 mm[Hg] Franchesca Cleary RN [facility] Work Phone: Comment on above: Patient Position: Sitting; Cuff Location : Left Arm; Cuff Size: Standard 04-25-2019 13:28-0500 BSA (Body Surface Area) 1.64 m2 Franchesca Cleary RN [facility] Work Phone: 04-25-2019 13:28-0500 Height 163.19 cm Franchesca Cleary RN [facility] Work Phone: 04-25-2019 13:28-0500 Pulse (Heart Rate) 68 /min Franchesca Cleary RN [facility] Work Phone: Comment on above: Pattern: Regular 04-25-2019 13:28-0500 Pulse Oximetry 98 % Elda Joy [facility] Work Phone: Comment on above: Room air 04-25-2019 13:28-0500 Respiratory Rate 18 /min Franchesca Cleary RN [facility] Work Phone: Comment on above: Pattern: Unlabored 04-25-2019 13:28-0500 SaO2% (BldA) [Mass fraction] 98 % Franchesca Cleary RN [facility]; [facility] Work Phone: Comment on above: Room air 04-15-2015 11:11-0500 BMI (Body Mass Index) 22.48 kg/m2 Leidy Lynn LPN [facility] Work Phone: 04-15-2015 11:11-0500 Body Temperature 97.9 [degF] Leidy Lynn LPN [facility] Work Phone: 04-15-2015 11:11-0500 Body weight 59.88 kg Leidy Slarb TITLE PROCESSOR [facility] Work Phone: 04-15-2015 11:11-0500 BP Diastolic 76 mm[Hg] Leidy Slarb TITLE PROCESSOR [facility] Work Phone: Comment on above: Patient Position: Sitting; Cuff Location : Left Arm; Cuff Size: Standard 04-15-2015 11:11-0500 BP Systolic 118 mm[Hg] Leidy Bartrb TITLE PROCESSOR [facility] Work Phone: Comment on above: Patient Position: Sitting; Cuff Location : Left Arm; Cuff Size: Standard 04-15-2015 11:11-0500 BSA (Body Surface Area) 1.64 m2 Leidy Slarb TITLE PROCESSOR [facility] Work Phone: 04-15-2015 11:11-0500 Height 163.19 cm Leidy Bartrb TITLE PROCESSOR [facility] Work Phone: 04-15-2015 11:11-0500 Pulse (Heart Rate) 85 /min Leidy Lynn LPN [facility] Work Phone: Comment on above: Pattern: Regular 04-15-2015 11:11-0500 Pulse Oximetry 99 % Elda Joy [facility] Internal Medicine Work Phone: Comment on above: Room air 04-15-2015 11:11-0500 Respiratory Rate 17 /min Leidy Lynn LPN [facility] Work Phone: Comment on above: Pattern: Unlabored 04-15-2015 11:11-0500 SaO2% (BldA) [Mass fraction] 99 % Leidy Bartrb TITLE PROCESSOR [facility]; [facility] Work Phone: Comment on above: Room air 09-17-2014 09:40-0400 BMI (Body Mass Index) 22.48 kg/m2 Elda Joy [facility] Internal Medicine Work Phone: 09-17-2014 09:40-0400 Body Temperature 98.2 [degF] Elda Joy [facility] Internal Medicine Work Phone: Comment on above: Method: Oral 09-17-2014 09:40-0400 Body weight 59.88 kg Elda Joy [facility] Work Phone: 09-17-2014 09:40-0400 BP Diastolic 80 mm[Hg] Elda Joy [facility] Work Phone: Comment on above: Patient Position: Sitting; Cuff Location : Left Arm; Cuff Size: Standard 09-17-2014 09:40-0400 BP Systolic 100 mm[Hg] Elda Joy [facility] Work Phone: Comment on above: Patient Position: Sitting; Cuff Location : Left Arm; Cuff Size: Standard 09-17-2014 09:40-0400 BSA (Body Surface Area) 1.64 m2 Elda Joy [facility] Work Phone: 09-17-2014 09:40-0400 Height 163.19 cm Elda Joy [facility] Work Phone: 09-17-2014 09:40-0400 Pulse (Heart Rate) 86 /min Elda Joy [facility] Work Phone: Comment on above: Pattern: Regular 09-17-2014 09:40-0400 Pulse Oximetry 98 % Elda Joy [facility] Work Phone: Comment on above: Room air 09-17-2014 09:40-0400 Respiratory Rate 18 /min Elda Joy [facility] Work Phone: Comment on above: Pattern: Unlabored 09-17-2014 09:40-0400 SaO2% (BldA) [Mass fraction] 98 % Elda Joy DO Work Phone: [facility]; [facility] Work Phone: Comment on above: Room air 04-29-2013 13:30-0500 BMI (Body Mass Index) 23.5 kg/m2 Franchesca Cleary RN [facility] Work Phone: 04-29-2013 13:30-0500 Body weight 62.6 kg Franchesca Cleary RN [facility] Work Phone: 04-29-2013 13:30-0500 BP Diastolic 60 mm[Hg] Franchesca Cleary RN [facility] Work Phone: Comment on above: Patient Position: Sitting; Cuff Location : Left Arm; Cuff Size: Large 04-29-2013 13:30-0500 BP Systolic 102 mm[Hg] Franchesca Cleary RN [facility] Work Phone: Comment on above: Patient Position: Sitting; Cuff Location : Left Arm; Cuff Size: Large 04-29-2013 13:30-0500 BSA (Body Surface Area) 1.68 m2 Franchesca Cleary RN [facility] Work Phone: 04-29-2013 13:30-0500 Height 163.19 cm Franchesca Cleary RN [facility] Work Phone: 04-29-2013 13:30-0500 Pulse (Heart Rate) 76 /min Franchesca Cleary RN [facility] Work Phone: Comment on above: Pattern: Regular 04-29-2013 13:30-0500 Pulse Oximetry 99 % Elda Beinta [facility] Work Phone: Comment on above: Room air 04-29-2013 13:30-0500 Respiratory Rate 18 /min Franchesca Cleary RN [facility] Work Phone: Comment on above: Pattern: Unlabored 04-29-2013 13:30-0500 SaO2% (BldA) [Mass fraction] 99 % Franchesca Claery RN [facility]; [facility] Work Phone: Comment on above: Room air 12-31-2012 08:48-0400 BMI (Body Mass Index) 23.5 kg/m2 May Verde LPN [facility] Work Phone: 12-31-2012 08:48-0400 Body Temperature 98.7 [degF] May Verde LPN [facility] Work Phone: Comment on above: Method: Oral 12-31-2012 08:48-0400 Body weight 62.6 kg May Verde LPN [facility] Work Phone: 12-31-2012 08:48-0400 BP Diastolic 70 mm[Hg] May Verde LPN [facility] Work Phone: Comment on above: Patient Position: Sitting; Cuff Location : Left Arm; Cuff Size: Standard 12-31-2012 08:48-0400 BP Systolic 102 mm[Hg] May Verde OLEG [facility] Internal Medicine Work Phone: Comment on above: Patient Position: Sitting; Cuff Location : Left Arm; Cuff Size: Standard 12-31-2012 08:48-0400 BSA (Body Surface Area) 1.68 m2 May Ammon DEJESUS [facility] Work Phone: 12-31-2012 08:48-0400 Height 163.19 cm May Ammon DEJESUS [facility] Work Phone: 12-31-2012 08:48-0400 Pulse (Heart Rate) 74 /min May Verde OLEG [facility] Work Phone: Comment on above: Pattern: Regular 12-31-2012 08:48-0400 Pulse Oximetry 98 % Elda Joy [facility] Internal Medicine Work Phone: Comment on above: Room air 12-31-2012 08:48-0400 Respiratory Rate 16 /min May Verde OLEG [facility] Work Phone: 12-31-2012 08:48-0400 SaO2% (BldA) [Mass fraction] 98 % May Ammon DEJESUS [facility]; [facility] Work Phone: Comment on above: Room air 10-10-2012 08:23-0400 BMI (Body Mass Index) 23.5 kg/m2 Eleanor Obando [facility] Internal Medicine Work Phone: 10-10-2012 08:23-0400 Body Temperature 98.2 [degF] Eleanor Obando [facility] Internal Medicine Work Phone: 10-10-2012 08:23-0400 Body weight 62.6 kg Eleanor Obando [facility] Internal Medicine Work Phone: 10-10-2012 08:23-0400 BP Diastolic 60 mm[Hg] Eleanor Obando [facility] Internal Medicine Work Phone: Comment on above: Patient Position: Sitting; Cuff Location : Left Arm; Cuff Size: Standard 10-10-2012 08:23-0400 BP Systolic 92 mm[Hg] Eleanor Obando [facility] Internal Medicine Work Phone: Comment on above: Patient Position: Sitting; Cuff Location : Left Arm; Cuff Size: Standard 10-10-2012 08:23-0400 BSA (Body Surface Area) 1.68 m2 Eleanor Amorjaun [facility] Internal Medicine Work Phone: 10-10-2012 08:23-0400 Height 163.19 cm Eleanor Nesbittamandajaun [facility] Internal Medicine Work Phone: 10-10-2012 08:23-0400 Pulse (Heart Rate) 80 /min [facility] Work Phone: Comment on above: Pattern: Regular 10-10-2012 08:23-0400 Respiratory Rate 16 /min Eleanor Nesbitthakan [facility] Internal Medicine Work Phone: Comment on above: Pattern: Unlabored 08-27-2012 16:16-0400 BMI (Body Mass Index) 23.16 kg/m2 Eleanor Amorjaun [facility] Internal Medicine Work Phone: 08-27-2012 16:16-0400 Body Temperature 98.2 [degF] Eleanor Obanod [facility] Internal Medicine Work Phone: 08-27-2012 16:16-0400 Body weight 61.69 kg Eleanor Nesbitthakan [facility] Internal Medicine Work Phone: 08-27-2012 16:16-0400 BP Diastolic 62 mm[Hg] Eleanor Amorjaun [facility] Internal Medicine Work Phone: Comment on above: Patient Position: Sitting; Cuff Location : Left Arm; Cuff Size: Standard 08-27-2012 16:16-0400 BP Systolic 104 mm[Hg] Eleanor Obando [facility] Internal Medicine Work Phone: Comment on above: Patient Position: Sitting; Cuff Location : Left Arm; Cuff Size: Standard 08-27-2012 16:16-0400 BSA (Body Surface Area) 1.67 m2 Eleanor Obando [facility] Internal Medicine Work Phone: 08-27-2012 16:16-0400 Height 163.19 cm Eleanor Obando [facility] Internal Medicine Work Phone: 08-27-2012 16:16-0400 Pulse (Heart Rate) 80 /min Eleanor Obando [facility] Work Phone: Comment on above: Pattern: Regular 08-27-2012 16:16-0400 Respiratory Rate 16 /min Eleanor Obando [facility] Internal Medicine Work Phone: Comment on above: Pattern: Unlabored 06-08-2012 13:06-0500 BMI (Body Mass Index) 23.5 kg/m2 Eleanor Obando [facility] Internal Medicine Work Phone: 06-08-2012 13:06-0500 Body Temperature 98.2 [degF] Eleanor Obando [facility] Medicine Work Phone: 06-08-2012 13:06-0500 Body weight 62.6 kg Eleanor Obando [facility] Internal Medicine Work Phone: 06-08-2012 13:06-0500 BP Diastolic 78 mm[Hg] Eleanor Obando [facility] Internal Medicine Work Phone: Comment on above: Patient Position: Sitting; Cuff Location : Left Arm; Cuff Size: Large 06-08-2012 13:06-0500 BP Systolic 94 mm[Hg] Eleanor Obando [facility] Internal Medicine Work Phone: Comment on above: Patient Position: Sitting; Cuff Location : Left Arm; Cuff Size: Large 06-08-2012 13:06-0500 BSA (Body Surface Area) 1.68 m2 Eleanor Obando [facility] Internal Medicine Work Phone: 06-08-2012 13:06-0500 Height 163.19 cm Eleanor Obando [facility] Internal Medicine Work Phone: 06-08-2012 13:06-0500 Pulse (Heart Rate) 72 /min Eleanor Obando [facility] Work Phone: Comment on above: Pattern: Regular 06-08-2012 13:06-0500 Respiratory Rate 16 /min Eleanor Gisella [facility] Internal Medicine Work Phone: Comment on above: Pattern: Unlabored 06-15-2010 08:21-0500 Body Temperature 97.6 [degF] Eleanor Obando [facility] Internal Medicine Work Phone: 06-15-2010 08:21-0500 Body weight 61.24 kg Eleanor Obando [facility] Medicine Work Phone: 06-15-2010 08:21-0500 BP Diastolic 60 mm[Hg] Eleanor Gisella [facility] Medicine Work Phone: Comment on above: Patient Position: Sitting; Cuff Location : Left Arm; Cuff Size: Large 06-15-2010 08:21-0500 BP Systolic 96 mm[Hg] Eleanor Obando [facility] Internal Medicine Work Phone: Comment on above: Patient Position: Sitting; Cuff Location : Left Arm; Cuff Size: Large 06-15-2010 08:21-0500 Pulse (Heart Rate) 72 /min Eleanor [facility]isella [facility] Work Phone: Comment on above: Pattern: Regular 06-15-2010 08:21-0500 Respiratory Rate 16 /min Eleanor Obando [facility] Internal Medicine Work Phone: Comment on above: Pattern: Unlabored 05-11-2010 16:16-0500 Body Temperature 97.9 [degF] Nan Brian RN [facility] Internal Medicine Work Phone: Comment on above: Method: Oral 05-11-2010 16:16-0500 BP Diastolic 60 mm[Hg] Nan Brian RN [facility] Work Phone: Comment on above: Patient Position: Sitting; Cuff Location : Left Arm; Cuff Size: Standard 05-11-2010 16:16-0500 BP Systolic 106 mm[Hg] Nan Brian RN [facility] Work Phone: Comment on above: Patient Position: Sitting; Cuff Location : Left Arm; Cuff Size: Standard 05-11-2010 16:16-0500 Pulse (Heart Rate) 64 /min Nan Brian RN [facility] Work Phone: Comment on above: Pattern: Regular 05-11-2010 16:16-0500 Respiratory Rate 18 /min Nan Brian RN [facility] Work Phone: Comment on above: Pattern: Unlabored 02-16-2010 08:52-0400 Body Temperature 95.5 [degF] [facility] Work Phone: Comment on above: Method: Oral 02-16-2010 08:52-0400 Body weight 61.43 kg [facility] Work Phone: 02-16-2010 08:52-0400 BP Diastolic 66 mm[Hg] [facility] Work Phone: Comment on above: Patient Position: Sitting; Cuff Location : Left Arm; Cuff Size: Standard 02-16-2010 08:52-0400 BP Systolic 108 mm[Hg] [facility] Work Phone: Comment on above: Patient Position: Sitting; Cuff Location : Left Arm; Cuff Size: Standard 02-16-2010 08:52-0400 Pulse (Heart Rate) 78 /min [facility] Medicine Work Phone: Comment on above: Pattern: Regular 02-16-2010 08:52-0400 Respiratory Rate 18 /min [facility] Work Phone: Comment on above: Pattern: Unlabored 12-14-2009 12:10-0400 Body Temperature 97.9 [degF] Eleanor Obando [facility] Work Phone: 12-14-2009 12:10-0400 BP Diastolic 70 mm[Hg] Eleanor Obando [facility] Work Phone: Comment on above: Patient Position: Sitting; Cuff Location : Left Arm; Cuff Size: Large 12-14-2009 12:10-0400 BP Systolic 90 mm[Hg] Eleanor Obando [facility] Work Phone: Comment on above: Patient Position: Sitting; Cuff Location : Left Arm; Cuff Size: Large 12-14-2009 12:10-0400 Pulse (Heart Rate) 76 /min Eleanor Obando [facility] Work Phone: Comment on above: Pattern: Regular 12-14-2009 12:10-0400 Respiratory Rate 18 /min Eleanor Obando [facility] Medicine Work Phone: Comment on above: Pattern: Unlabored 10-26-2009 12:06-0400 Body weight 60.33 kg Eleanor Obando [facility] Work Phone: 10-26-2009 12:06-0400 BP Diastolic 76 mm[Hg] Eleanor Obando [facility] Work Phone: Comment on above: Patient Position: Sitting; Cuff Location : Left Arm; Cuff Size: Standard 10-26-2009 12:06-0400 BP Systolic 108 mm[Hg] Eleanor Obando [facility] Work Phone: Comment on above: Patient Position: Sitting; Cuff Location : Left Arm; Cuff Size: Standard 10-26-2009 12:06-0400 Pulse (Heart Rate) 72 /min Eleanor Obando [facility] Work Phone: Comment on above: Pattern: Regular 10-26-2009 12:06-0400 Respiratory Rate 16 /min Eleanor Obando [facility] Work Phone: Comment on above: Pattern: Unlabored 09-15-2009 14:17-0400 BMI (Body Mass Index) 23.34 kg/m2 Eleanor Obando [facility] Work Phone: 09-15-2009 14:17-0400 Body Temperature 98.6 [degF] Eleanor Obando [facility] Work Phone: 09-15-2009 14:17-0400 Body weight 61.69 kg Eleanor Obando [facility] Work Phone: 09-15-2009 14:17-0400 BP Diastolic 62 mm[Hg] Eleanor Obando [facility] Work Phone: Comment on above: Patient Position: Sitting; Cuff Location : Left Arm; Cuff Size: Large 09-15-2009 14:17-0400 BP Systolic 108 mm[Hg] Eleanor Obando [facility] Work Phone: Comment on above: Patient Position: Sitting; Cuff Location : Left Arm; Cuff Size: Large 09-15-2009 14:17-0400 BSA (Body Surface Area) 1.66 m2 Eleanor Obando [facility] Work Phone: 09-15-2009 14:17-0400 Height 162.56 cm Eleanor Obando [facility] Work Phone: 09-15-2009 14:17-0400 Pulse (Heart Rate) 72 /min Eleanor Obando [facility] Work Phone: Comment on above: Pattern: Regular 09-15-2009 14:17-0400 Respiratory Rate 16 /min Eleanor Obando [facility] Medicine Work Phone: Comment on above: Pattern: Unlabored Encounters Encounter Date Encounter Type Care Provider Facility Start: 02-05-2025 ambulatory Elda Joy Facilit y:[facility] Start: 01-07-[address] Ayush Kat DO -Physical Therapy Work Phone: Start: 01-07-2025 ambulatory Elda Bland y:[facility] Start: 12-12-2024 End: 12-12-2024 Discharged Recurring Self Referred -Physical Therapy Work Phone: Start: 12-12-2024 End: 12-12-[address] Elda Joy DO Work Phone: -Physical Therapy Start: 10-03-2024 End: 10-03-2024 Patient encounter procedure PIYUSH BROOKS PA -Laboratory Work Phone: Start: 10-03-2024 End: 10-03-2024 ambulatory Elda Joy Facility:[facility] Start: 08-29-2024 ambulatory Elda Joy Facilit y:[facility] Start: 07-18-2024 End: 07-18-2024 ambulatory Elda Joy Facility:[facility] Start: 11-15-2022 End: 11-15-[address] Elda Joy Work Phone: [facility] Work Phone: Start: 11-15-2022 End: 11-15-[address] Elda Joy Work Phone: [facility]-Laboratory Start: 09-29-2022 End: 09-29-[address] Elda Joy Work Phone: [facility] Start: 07-29-2022 End: 07-29-[address] Elda Joy Work Phone: [facility] Work Phone: Start: 07-29-2022 End: 07-29-[address] [facility] Start: 07-14-2022 End: 07-14-[address] Elda Joy Work Phone: [facility] Work Phone: Start: 07-14-2022 End: 07-14-[address] [facility] Start: 07-14-2022 End: 07-14-[address] Elda Joy Work Phone: [facility] Start: 06-11-2021 End: 06-11-2021 Phone Encounter Elda Joy DO Work Phone: [facility] Start: 04-01-2020 End: 04-01-2020 Office outpatient visit 5 minutes Elda Joy [facility] Start: 11-08-2019 End: 11-08-2019 Phone Encounter Elda Joy [facility] Start: 08-01-2019 End: 08-01-2019 Erroneous Entry [facility] Start: 07-24-2019 End: 07-24-2019 Phone Encounter [facility] Start: 04-25-2019 End: 04-25-2019 Office outpatient visit 10 minutes [facility] Start: 03-27-2019 End: 03-28-2019 Office outpatient visit 5 minutes [facility] Start: 12-13-2018 End: 12-13-2018 Phone Encounter [facility] Start: 12-10-2018 End: 12-10-2018 Lab Order [facility] Start: 12-10-2018 End: 12-10-2018 Lab Order [facility] Start: 10-15-2018 End: 10-15-2018 Phone Encounter [facility] Start: 02-13-2018 End: 02-13-2018 Phone Encounter [facility] Start: 05-04-2017 End: 05-04-2017 Phone Encounter [facility] Start: 08-25-2016 End: 08-25-2016 Office outpatient visit 5 minutes [facility] Start: 08-27-2015 End: 09-01-2015 Office outpatient visit 5 minutes [facility] Start: 08-24-2015 End: 08-24-2015 Office outpatient visit 5 minutes [facility] Start: 04-15-2015 End: 04-15-2015 Office outpatient visit 15 minutes [facility] Start: 09-17-2014 End: 09-17-2014 Office outpatient visit 25 minutes [facility] Start: 09-04-2014 End: 09-04-2014 Office outpatient visit 5 minutes [facility] Start: 09-02-2014 End: 09-02-2014 Office outpatient visit 5 minutes [facility] Start: 08-22-2014 End: 08-22-2014 Office outpatient visit 5 minutes [facility] Start: 06-30-2014 End: 06-30-2014 Office outpatient visit 5 minutes [facility] Start: 09-25-2013 End: 09-25-2013 Phone Encounter [facility] Start: 05-01-2013 End: 05-01-2013 Phone Encounter Elda Wilsonon [facility] Start: 04-29-2013 End: 04-29-2013 Patient encounter procedure Elda Wilsonon [facility] Start: 12-31-2012 End: 12-31-2012 Office outpatient visit 15 minutes [facility] Start: 10-10-2012 End: 10-10-2012 Patient encounter procedure Elda Wilsonon [facility] Start: 08-27-2012 End: 08-27-2012 Patient encounter procedure Elda Wilsonon [facility] Start: 07-23-2012 End: 07-23-2012 Patient encounter procedure Eldacailin Wilsonon [facility] Start: 06-11-2012 End: 06-11-2012 Phone Encounter Eldacailin Wilsonon [facility] Start: 06-08-2012 End: 06-10-2012 Patient encounter procedure Elda Benita [facility] Start: 06-15-2010 End: 06-15-2010 Patient encounter procedure Elda Benita [facility] Start: 05-11-2010 End: 05-11-2010 Patient encounter procedure Eldacailin Wilsonon [facility] Start: 03-30-2010 End: 03-30-2010 Historical Summary Elda Joy [facility] Start: 03-17-2010 End: 03-17-2010 Historical Summary Elda Benita [facility] Start: 02-16-2010 End: 02-16-2010 Patient encounter procedure Elda Benita [facility] Start: 12-14-2009 End: 12-14-2009 Patient encounter procedure Elda Benita [facility] Start: 10-26-2009 End: 10-26-2009 Patient encounter procedure Eldacailin Wilsonon [facility] Start: 09-28-2009 End: 09-28-2009 Historical Summary Elda Joy [facility] Start: 09-15-2009 End: 09-15-2009 Patient encounter procedure Elda Benita [facility] Procedures Date Procedure Procedure Detail Performing Clinician Start: 10-03-[address] Elda Joy DO Work Phone: Start: 10-03-[address] hormone measurement [address]. Elda Joy DO Work Phone: Comment on above: FEMALE:Follicular: 1.4 - 18.1 mIU/mLMidc ycle: 3.4 - 33.4 mIU/mLLuteal: 1.5 - 9.1 mIU/mLPost Menopause: 23.0 - 116.3 mIU/mLMALE: 1.4 - 18.1 mIU/mL NORMAL REFERENCE RANGES FEMALE FOLLICULAR 2.3 - 12.6 mIU/mL MID-CYCLE PEAK 5.2 - 17.5 mIU/mL LUTEAL 1.7 - 12.9 mIU/mL POST-MENOPAUSAL ON MHT 5.9 - 72.8 mIU/mL NOT ON MHT 12.7 - 132.2 mlU/mL MALE 0.7 - 10.8 mIU/mL Start: 10-03-[address] Elda Joy DO Work Phone: Start: 10-03-[address] Elda Joy DO Work Phone: Comment on above: Test Ordered: 193219 DHEA, SerumTest(s) 841032-Rkrhwqfdoxgecjlrrxphjg (DHEA)was developed and its performance characteristicsdetermined by [employer]. It has not been cleared or approvedby the Food and Drug Administration.Dehydroepiandrosterone (DHEA) 286 ng/dL Reference Range: 31-701Performed at: [facility] [employer] [id number] Director: Steven Russo MD, Phone: [phone] at: [facility] [employer] [id number] Director: Robin Velazquez PhD, Phone: [phone] Start: 10-03-[address] Jose Joy DO Work Phone: Comment on above: Follicular phase 0.1 - 0.9 Luteal phase 1.8 - 23.9 Ovulation phase 0.1 - 12.0 First trimester 11.0 - 44.3 Second trimester 25.4 - 83.3 Third trimester 58.7 - 214.0 Postmenopausal 0.0 - 0.1Performed at: [place] [id number] [place], [place] [id number] Director: Robin Velazquez PhD, Phone: [phone] Start: 10-27-2021 End: 10-27-2021 Inital Evaluation (1) - PT Procedure Note: See Note; NOTES: [facility] [address] [place] [address] / REHABILITATION SERVICES INITIAL EVALUATION MR#: [id number] Acct: [id number] Name: FRANCEHSCA WILCOX Rep #: [id number] : 1985 36 From: Tahira Washington DPT Referring Dr.: Self Referred Status: REG RCR Insurance: SELF PAY INSURANCE Patient's Visit Information FRANCHESCA WILCOX is a 36 year old F referred to Physical Therapy by Self Referred with a diagnosis of . Date of Evaluation: 10/27/21 Physical Therapist: Tahira Washington DPT - Visit Plan Frequency: 1x/Week Duration: 6 Weeks Plan: Dry Needling - Subjective Patient reports that she is coming back for DN as it has worked in the past for her cervical spine. She is really tight and woke up this week with a ALVAREZ. - Objective Posture: fair throughout. Gait: no deviation. ROM: Cervical: WFL but reports tightness in upper trap and cervical paraspinals. Strength: WFL. Palpation: tender along cervical paraspinals, upper trap, levator and into the medial border of the scapula - Goals Goal 1:: Patient will report no ALVAREZ for 1 week Goal Time Frame: 4-6 Weeks - Anticipated Interventions Manual Therapy Techniques to Include: Functional dry needling Thank you for the opportunity to evaluate your patient. For Medicare and Medicare HMO plans, please review the plan of care and approve it. It will need to be FAXED BACK to us at [phone] for Medicare purposes. For Medicare only, by signing this I certify the plan of care. Please let me know if there are questions or concerns regarding this plan of care. Physician Signature: Date: _ <Electronically signed by Tahira Washington DPT> 10/27/21 1449 CC: Dr. Elda Joy, DO; Self Referred ELR Signed Elda Joy DO Work Phone: Start: 07-12-2021 End: 07-12-2021 Fishing Hand Office Visit Report Procedure Note: See Note; NOTES: [facility] 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) Allergies ciprofloxacin [From Cipro] Allergy (Verified 07/12/21 08:05) Rash ciprofloxacin HCl [From Cipro] Allergy (Verified 07/12/21 08:05) Rash Medications cholecalciferol (vitamin D3) 50 mcg (2,000 unit) capsule 2,000 unit PO DAILY 02/09/18 [History Confirmed 07/12/21] multivitamin 1 tab PO DAILY 02/09/18 [History Confirmed 07/12/21] magnesium 200 mg PO DAILY 04/20/20 [History Confirmed 07/12/21] vitamin B complex 1 ea PO DAILY 04/20/20 [History Confirmed 07/12/21] zinc 50 mg PO DAILY 04/20/20 [History Confirmed 07/12/21] Is last menstrual period known: Yes Last Menstral Period: 06/14/21 [facility] Medical History Abnormal Pap smear of cervix Attempted IUD removal, unsuccessful ( 04/29/20) Surgical History (Updated 07/12/21 @ 08:13 by Dania Baltimore METER/RELAY TECHNICIAN, METER/RELAY TECHNICIAN-C) History of colposcopy S/P appendectomy S/P Family History Grandmother Breast cancer Grandmother Heart disease Grandfather Heart disease Social History Smoking Status: Never smoker alcohol intake: current details: occasionally substance use type: does not use caffeine: Yes what type of physical activity do you participate in: weight training frequency: 3-4 times per week seatbelt use: always do you feel safe at home: Yes additional social history: [employer] 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 Date Name GA/Weeks Outcome Route Bth Weight Gen Labor Lgth Anesthesia Del Locatn Provider FOB 06/19/11 Nick 40 live - full term 9lbs 2oz Male spinal [facility] Dr. Glenna Richardson 11/24/15 Van 39 live - full term 7lbs 7oz Male spinal [facility] Dr. Adams Richardson Delivery Date: 06/19/11 No issues during . Csection due to labor stalling. Aminata Angelo Delivery Date: 11/24/15 No issues during or delivery. Aminata Angelo HPI Encounter for routine gynecological examination: Details: FRANCHESCA WILCOX is a 36 year old who presents for annual exam. Achy pain back of thighs with menses. Ibuprofen helpful. , no STD concerns. 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 Last PAP: 2018 History of abnormal PAP: colp only before 2010 Last mammogram: age 41 Other preventative health care screenings: Benita Details: FRANCHESCA WILCOX is a 36 year old who presents for annual exam. Last PAP: [] History of abnormal PAP: [] Last mammogram: [] History of abnormal mammogram: [] Colon cancer screening: [] Other preventative health care screenings: [] Female Reproductive History Last Menstral Period: 06/14/21 Cycle Length: 21-35 Control Method: spouse vasectomy Questions: metorrhagia: No, sexually active: Yes, dyspareunia: No and PCB: No ROS Const Constitutional: Denies fatigue, weight gain or weight loss Cardio Card: Denies chest pain Resp Resp: Denies cough or dyspnea on exertion GI GI: Denies abdominal pain, bloating, change in stool character, constipation or vomiting : Reports as per HPI; Denies difficulty voiding, pelvic pain, urinary frequency, urinary incontinence, urinary urgency, vaginal discharge or vaginal pruritus Exam Const General: cooperative, healthy appearing, no acute distress and well developed Orientation: alert, oriented to person and oriented to place HENND Head: normal to inspection Neck Neck: normal visual inspection Thyroid: thyroid normal Lymphatic: no lymphadenopathy noted Chest Breast inspection: normal inspection of the breasts and normal inspection of the axillae Breast palpation: normal palpation of the breasts, normal palpation of the axillae and no axillary lymphadenopathy Resp Effort Inspection: normal respiratory effort GI Palpation: soft, no masses and nontender Rectal Exam: deferred External Female Exam: normal external appearance and normal appearance of the urethra Urethra: normal appearance of the urethra and normal palpation Speculum Exam - Vagina: normal appearance of the vagina and normal vaginal discharge Speculum Exam - Cervix: normal appearance of the cervix Bimanual Exam- Vagina Uterus: normal bimanual exam, uterine size normal, uterine shape normal and non-tender Bimanual Exam- Adnexa, other: normal adnexae, no masses, normal and non-tender Pelvic Support: normal Neuro General: patient alert and patient oriented x3 Psych Affect: normal affect Coding Level of Care Code Off vis,est,prev 18-39yrs Diagnoses Encounter for routine gynecological examination Z01.419 Assessment and Plan Assessment and Plan (1) Encounter for routine gynecological examination: Plan - Dania Lucia METER/RELAY TECHNICIAN, METER/RELAY TECHNICIAN-C: Completed breast and pelvic exam Reviewed diet and exercise Pap 2017, will do next year Mammogram age 41 breast self exam encouraged monthly Contraception spouse vasectomy Consistent use anti inflamatory meds OTC for leg aches RTO 1 year, prn with problems Dania Lucia CNP 07/12/21 0827 <Electronically signed by Dania Lucia NP METER/RELAY TECHNICIAN-C> Date Dania Lucia NP METER/RELAY TECHNICIAN-C Cosigner Signature: Date (if applicable) CC: Elda Joy DO Work Phone: Start: 07-10-2020 End: 07-10-2020 Fishing Hand Office Visit Report Comments: See Note; NOTES: [facility] [address] [place] [address] OFFICE VISIT Date of Service: 07/10/20 MR#: [id number] Acct: [id number] Name: FRANCHESCA WILCOX Rep #: [id number] : 1985 Provider: Dr. 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) Chief Complaint: est annual Cloth Tester Required: No Is patient in pain?: No Allergies ciprofloxacin [From Cipro] Allergy (Verified 07/10/20 09:17) Rash ciprofloxacin HCl [From Cipro] Allergy (Verified 07/10/20 09:17) Rash Medications cholecalciferol (vitamin D3) 50 mcg (2,000 unit) capsule 2,000 unit PO DAILY 02/09/18 [History Confirmed 07/10/20] multivitamin 1 tab PO DAILY 02/09/18 [History Confirmed 07/10/20] Magnesium 200 mg PO DAILY 04/20/20 [History Confirmed 07/10/20] Vitamin B Complex 1 ea PO DAILY 04/20/20 [History Confirmed 07/10/20] Zinc 50 mg PO DAILY 04/20/20 [History Confirmed 07/10/20] Is last menstrual period known: No Post menopausal: No Patient : No : No PFSH Medical History Attempted IUD removal, unsuccessful (Resolved 04/29/20) Abnormal Pap smear of cervix (Acute) Surgical History History of colposcopy (Resolved) S/P (Resolved) S/P appendectomy (Resolved) Family History Grandmother Breast cancer Grandmother Heart disease Grandfather Heart disease Social History (Updated 07/10/20 @ 09:[address] 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 Date Name GA/Weeks Outcome Route Bth Weight Infant Gen Labor Lgth Anesthesia Del Locatn Provider FOB 06/19/11 Nick 40 live - full term 9lbs 2oz Male spinal [facility] Dr. Glenna Richardson 11/24/15 Van 39 live - full term 7lbs 7oz Male spinal [facility] Dr. Adams Richardson Delivery Date: 06/19/11 No issues during . Csection due to labor stalling. Aminata Angelo Delivery Date: 11/24/15 No issues during or delivery. Aminata Angelo HPI Encounter for routine gynecological examination: Details: FRANCHESCA WILCOX is a 35 year old who presents for annual exam. doing well. Last PAP: 2017 nl hpv neg History of abnormal PAP: mild Other preventative health care screenings: pcp Benita Female Reproductive History Cycle Length: 21-35 Bleeding Duration: 5 Control Method: vasectomy Questions: Metorrhagia: No, Sexually active: Yes, Dyspareunia: No, PCB: No ROS Const Constitutional: Reports as per HPI; denies fatigue, increased appetite, poor appetite, weight gain or weight loss Cardio Card: Denies chest pain Resp Resp: Denies cough or dyspnea GI GI: Reports as per HPI; denies abdominal pain, bloating, constipation, nausea or vomiting : Reports as per HPI and other; denies difficulty urinating, painful urination, blood in urine, nipple discharge, pelvic pain, prolapse symptoms, urinary frequency, urinary incontinence, urinary urgency, vaginal discharge, vaginal dryness, vaginal odor or vaginal itching Skin Skin/Breast: Denies changing lesions, breast lump, breast pain, breast skin changes or nipple discharge Psych Psych: Denies anxiety or depression Exam Const General: cooperative, healthy appearing, comfortable, no acute distress, well developed, well groomed [facility] Head: normal to inspection, normocephalic Ears: hearing grossly normal bilaterally, external ears normal Nose: external nose normal Face and sinus: normal facial exam Neck Neck: normal visual inspection, full ROM, no lymphadenopathy Thyroid: thyroid normal Chest Chest palpation inspection: normal inspection of the chest Breast inspection: normal inspection of the breasts, normal inspection of the axillae Breast palpation: normal palpation of the breasts, normal palpation of the axillae, no axillary lymphadenopathy Resp Effort Inspection: normal respiratory effort GI Inspection: normal to inspection, non-distended Palpation: soft, no hepatosplenomegaly, no guarding General: bladder normal to palpation External Female Exam: normal external appearance, normal appearance of the urethra, no lesions Urethra: normal appearance of the urethra, normal palpation Speculum Exam - Vagina: normal appearance of the vagina, normal vaginal discharge Speculum Exam - Cervix: normal appearance of the cervix, no cervical discharge, no lesions, nontender Bimanual Exam- Vagina Uterus: normal bimanual exam, uterine size normal, bladder normal to palpation, No cervical tenderness, uterine mobility normal, uterine consistency normal, uterus non- tender, no cervical motion tenderness Bimanual Exam- Adnexa, other: normal adnexae, no adnexal masses, adnexae non-tender Skin General: no rashes or lesions noted Neuro General: alert, moves all extremities, no focal motor deficits Extrem General: normal to inspection, no pedal edema Psych Appearance: grossly normal Mental Status: mental status grossly normal Affect: normal affect Speech and Movement: speech and movement normal Attitude: cooperative Assessment Plan 1. Encounter for gynecological examination without abnormal finding Z01.419 Plan Cervical cancer screening: pap hpv nl Breast cancer screening: clinical other health maintenance examination reviewed and orders placed if needed. Encouraged maintenance of a healthy weight and active lifestyle and handout given. Annual exam handout including recommendations for good health guidelines, Calcium/vitamin D recommendations, and basic screening information given. Problem list up to date, see problem list details for any additional plan information. Follow up in one year for annual health maintenance exam or sooner if needed. Coding Level of Care Code Off vis,est,prev 18-39yrs Diagnoses Encounter for gynecological examination without abnormal finding Z01.419 ?Gynecological examination findings: abnormal findings ABSENT 07/10/20 0947 <Electronically signed by Winnie Rose MD> Date Winnie Rose MD Cosigner Signature: Date (if applicable) CC: Elda Joy DO Work Phone: Start: 04-28-2020 End: 04-28-2020 Operative Report Comments: See Note; NOTES: [facility] Medical Records Department [address] [place] [address] Operative Report 04/28/20 1136 MR#: [id number] Acct: [id number] Name: FRANCHESCA WILCOX Rep #: [id number] : 1985 35 From: Yara Mckeon MD PCP: Dr. Elda Joy, DO Status:[facility] Y Location: [place] [address] Problem List (1) IUD strings lost Status: Acute Report of Operation Date of Procedure: 04/28/20 Pre-Operative Diagnosis: Retained IUD Post-Operative Diagnosis: Same Surgery/Procedure Performed:: Pelvic exam under anesthesia, IUD removal Description of Surgical Findings:: Normal-appearing cervix. IUD strings noted to be tucked inside the uterine cavity. Type of Anesthesia:: MAC Special Medications: None Specimen's removed: IUD Estimated Blood Loss (mL): 5 cc Description of Procedure: The patient was taken to the operating room where general anesthesia was obtained without difficulty. She was prepped and draped in the dorsal lithotomy position with yellowfin stirrups. Weighted speculum was placed in the posterior aspect of the vagina and the anterior lip cervix was grasped with a single-tooth tenaculum. Polyp forceps were then introduced into the uterine cavity without difficulty. The IUD was grasped and removed atraumatically. The IUD and strings were noted to be intact. The tenaculum was removed and hemostasis was noted. All other instruments were then removed from the vagina. The procedure was deemed complete. The patient was awakened from anesthesia and taken to recovery room in stable condition. - Complications None - Admit VTE Documentation VTE Present on Admission: No VTE Mechan Device Prophylaxis: SCD's VTE Pharm Prophylaxis ordered?: No Multi Select Codes - Urinary/Genital Urinary/Genital CPT Codes: 48548 PEUA - IUD removal - 57958 04/28/20 1226 <Electronically signed by Yara Mckeon MD> Date Yara Mckeon MD CC: Dr. Yara Mckeon MD; Dr. Elda Joy, DO Signed Elda Joy Start: 04-28-2020 End: 04-28-2020 Discharge Instruction Comments: See Note; NOTES: [facility] Medical Records Department [address] [place] [address] Instructions for Home/Discharge Instructions 04/28/20 1134 MR#: [id number] Acct: [id number] Name: FRANCHESCA WILCOX Rep #: [id number] : 1985 35 From: Yara Mckeon MD PCP: Dr. Elda Joy, DO Status:[facility] [place] Discharge Diet: No Restrictions Discharge Activity: Return to Normal Activity, May Shower, May Take a Tub Bath - in 2 weeks. Allergies/Adverse Reactions: Allergies ciprofloxacin [From Cipro] Allergy (Verified 04/28/20 10:54) Rash ciprofloxacin HCl [From Cipro] Allergy (Verified 04/28/20 10:54) Rash Medications to take at Discharge cholecalciferol (vitamin D3) 50 mcg (2,000 unit) capsule 2,000 unit PO DAILY 02/09/18 multivitamin 1 tab PO DAILY 02/09/18 copper 380 square mm intrauterine device 1 device INTRAUTERINE ONCE 02/06/20 Magnesium 200 mg PO DAILY 04/20/20 Vitamin B Complex 1 ea PO DAILY 04/20/20 Zinc 50 mg PO DAILY 04/20/20 Primary Care Physician: Elda Joy DO [Primary Care Provider] - Test Results: Test results from this visit will be discussed in further detail at your follow-up appointment, if applicable. 04/28/20 1134 <Electronically signed by Yara Mckeon MD> Date Yara Mckeon MD CC: Dr. Elda Joy DO Signed Elda Joy Start: 04-28-2020 End: 04-28-2020 History and Physical Exam Comments: See Note; NOTES: [facility] Medical Records Department [address] [place] [address] History and Physical 04/28/20 0853 MR#: [id number] Acct: [id number] Name: FRANCHESCA WILCOX Rep #: [id number] : 1985 35 From: Yara Mckeon MD PCP: Dr. Elda Joy DO Status:[facility] Y Location: [place] [address] - Problem List (1) IUD strings lost Status: Acute History and Physical Date of Admission: 04/28/20 Intake Vital Signs 04/17/20 Height 5 ft 4 in 04/17/20 Weight: 142 lb 8 oz 04/17/20 BP 130/86 H 04/15/20 BMI 24.5 Intake Visit Reasons: IUD removal under anesth. preop Cloth Tester Required: No Is patient in pain?: No Allergies ciprofloxacin [From Cipro] Allergy (Verified 04/17/20 15:51) Rash ciprofloxacin HCl [From Cipro] Allergy (Verified 04/17/20 15:51) Rash Medications cholecalciferol (vitamin D3) 50 mcg (2,000 unit) capsule 2,000 unit PO DAILY 02/09/18 [History Confirmed 04/17/20] multivitamin 1 tab PO DAILY 02/09/18 [History Confirmed 04/17/20] copper 380 square mm intrauterine device 1 device INTRAUTERINE ONCE 02/06/20 [History Confirmed 04/17/20] progesterone micronized 100 mg capsule 125 mg PO QAM cap 02/06/20 [History Confirmed 04/17/20] Post menopausal: No Patient : No : No PFSH Medical History Abnormal Pap smear of cervix (Acute) Surgical History History of colposcopy (Resolved) S/P (Resolved) S/P appendectomy (Resolved) Family History Grandmother Breast cancer Grandmother Heart disease Grandfather Heart disease Social History (Updated 04/19/20 @ 21:[address] 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 preop: Details: FRANCHESCA WILCOX is a 35 year old who presents for consult for IUD removal. Reports occasional cramping pain. Reports heavy bleeding with IUD. Had failed removal in office due to lost IUD strings. Pregancy History 2 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 Date Name GA/Weeks Outcome Route Bth Weight Infant Gen Labor Lgth Anesthesia Del Locatn Provider FOB 06/19/11 Nick 40 live - full term 9lbs 2oz Male spinal [facility] Dr. Glenna Richardson 11/24/15 Van 39 live - full term 7lbs 7oz Male spinal [facility] Dr. Adams Richardson Delivery Date: 06/19/11 No issues during . Csection due to labor stalling. Aminata Angelo Delivery Date: 11/24/15 No issues during or delivery. Aminata Angelo ROS Const Constitutional: Reports system reviewed and no additional complaints, except as docu ENT ENT: Reports system reviewed and no additional complaints, except as docu Cardio Card: Reports system reviewed and no additional complaints, except as docu Resp Resp: Reports system reviewed and no additional complaints, except as docu GI GI: Reports system reviewed and no additional complaints, except as docu : Reports system reviewed and no additional complaints, except as docu Musc Musc: Reports system reviewed and no additional complaints, except as docu Skin Skin/Breast: Reports system reviewed and no additional complaints, except as docu Neuro Neuro: Reports system reviewed and no additional complaints, except as docu Psych Psych: Reports system reviewed and no additional complaints, except as docu Exam Const General: cooperative, healthy appearing, comfortable, well developed, well groomed Nutritional Appearance: average body habitus, well nourished Orientation: alert, awake, oriented x3 HENMT Head: normal to inspection, normocephalic, atraumatic Eyes Pupils: PERRL, accommodation normal EOM: EOM intact bilaterally Neck Neck: normal visual inspection, full ROM Resp Effort Inspection: normal respiratory effort, able to speak in complete sentences, symmetric chest movement Cardio Rate: regular rate Skin General: no rashes or lesions noted, elasticity normal, turgor normal Lesions: no lesions Rashes: no rashes Neuro General: alert, awake, oriented x3 Cranial Nerves: CN's II-XI intact bilaterally, PERRL, EOM intact bilaterally Cognition: normal cognition Speech: speech normal Gait: normal gait Extrem General: normal to inspection, full ROM, no pedal edema Psych Appearance: grossly normal Mental Status: mental status grossly normal Mood: congruent mood Affect: normal affect Speech and Movement: speech and movement normal Attitude: cooperative Thought Process: normal Thought Content: normal Judgment: judgment good Assessment Plan 1. Intrauterine contraceptive device threads lost, subsequent encounter T83.32XD Plan Patient presents for consult for IUD removal. Had failed removal in the office due to lost IUD strings. Had prior ultrasound demonstrating IUD present inside of uterus. Recommended exam under anesthesia, hysteroscopy, IUD removal. The nature of the procedure was described to the patient. The risks, benefits, indications, and alternatives to the procedure were discussed with the patient including bleeding, infection, and damage to surrounding structures. Discussed that risks are very low. Discussed the possibility of perforation and that this could require laparotomy or laparoscopy. Discussed the possibility of damage to surrounding structures including uterus, tubes, ovaries, bowel, or bladder. Understands the risk of hospitalization or reoperation. Voices understanding and agrees to proceed. UPDATE- I have seen the patient and performed any clinically relevant updates to the history and physical exam. Yara Mckeon MD 04/28/20 1138 <Electronically signed by Yara Mckeon MD> Date Yara Mckeon MD Cosigner Signature: Date (if applicable) CC: Dr. Yara Mckeon MD; Dr. Elda Joy, DO Signed Elda Joy Start: 2020 End: 04-19-2020 Fishing Hand Office Visit Report Comments: See Note; NOTES: [facility] [address] [place] [address] OFFICE VISIT Date of Service: 04/17/20 MR#: [id number] Acct: [id number] Name: FRANCHESCA WILCOX Rep #: [id number] : 1985 Provider: Dr. Yara becerra MD Age/Sex: 35/F Location: [facility] Status: Signed Intake Vital Signs 04/17/20 Height 5 ft 4 in 04/17/20 Weight: 142 lb 8 oz 04/17/20 BP 130/86 H 04/15/20 BMI 24.5 Intake Visit Reasons: IUD removal under anesth. preop Cloth Tester Required: No Is patient in pain?: No Allergies ciprofloxacin [From Cipro] Allergy (Verified 04/17/20 15:51) Rash ciprofloxacin HCl [From Cipro] Allergy (Verified 04/17/20 15:51) Rash Medications cholecalciferol (vitamin D3) 50 mcg (2,000 unit) capsule 2,000 unit PO DAILY 02/09/18 [History Confirmed 04/17/20] multivitamin 1 tab PO DAILY 02/09/18 [History Confirmed 04/17/20] copper 380 square mm intrauterine device 1 device INTRAUTERINE ONCE 02/06/20 [History Confirmed 04/17/20] progesterone micronized 100 mg capsule 125 mg PO QAM cap 02/06/20 [History Confirmed 04/17/20] Post menopausal: No Patient : No : No [facility] Medical History Abnormal Pap smear of cervix (Acute) Surgical History History of colposcopy (Resolved) S/P (Resolved) S/P appendectomy (Resolved) Family History Grandmother Breast cancer Grandmother Heart disease Grandfather Heart disease Social History (Updated 04/19/20 @ 21:[address] 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 preop: Details: FRANCHESCA WILCOX is a 35 year old who presents for consult for IUD removal. Reports occasional cramping pain. Reports heavy bleeding with IUD. Had failed removal in office due to lost IUD strings. Pregancy History 2 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 Date Name GA/Weeks Outcome Route Bth Weight Gen Labor Lgth Anesthesia Del Locatn Provider FOB 06/19/11 Nick 40 live - full term 9lbs 2oz Male spinal [facility] Dr. Glenna Richardson 11/24/15 Van 39 live - full term 7lbs 7oz Male spinal [facility] Dr. Adams Richardson Delivery Date: 06/19/11 No issues during . Csection due to labor stalling. Aminata Angelo Delivery Date: 11/24/15 No issues during or delivery. Aminata Angelo ROS Const Constitutional: Reports system reviewed and no additional complaints, except as docu ENT ENT: Reports system reviewed and no additional complaints, except as docu Cardio Card: Reports system reviewed and no additional complaints, except as docu Resp Resp: Reports system reviewed and no additional complaints, except as docu GI GI: Reports system reviewed and no additional complaints, except as docu : Reports system reviewed and no additional complaints, except as docu Musc Musc: Reports system reviewed and no additional complaints, except as docu Skin Skin/Breast: Reports system reviewed and no additional complaints, except as docu Neuro Neuro: Reports system reviewed and no additional complaints, except as docu Psych Psych: Reports system reviewed and no additional complaints, except as docu Exam Const General: cooperative, healthy appearing, comfortable, well developed, well groomed Nutritional Appearance: average body habitus, well nourished Orientation: alert, awake, oriented x3 HENMT Head: normal to inspection, normocephalic, atraumatic Eyes Pupils: PERRL, accommodation normal EOM: EOM intact bilaterally Neck Neck: normal visual inspection, full ROM Resp Effort Inspection: normal respiratory effort, able to speak in complete sentences, symmetric chest movement Cardio Rate: regular rate Skin General: no rashes or lesions noted, elasticity normal, turgor normal Lesions: no lesions Rashes: no rashes Neuro General: alert, awake, oriented x3 Cranial Nerves: CN's II-XI intact bilaterally, PERRL, EOM intact bilaterally Cognition: normal cognition Speech: speech normal Gait: normal gait Extrem General: normal to inspection, full ROM, no pedal edema Psych Appearance: grossly normal Mental Status: mental status grossly normal Mood: congruent mood Affect: normal affect Speech and Movement: speech and movement normal Attitude: cooperative Thought Process: normal Thought Content: normal Judgment: judgment good Assessment Plan 1. Intrauterine contraceptive device threads lost, subsequent encounter T83.32XD Plan Patient presents for consult for IUD removal. Had failed removal in the office due to lost IUD strings. Had prior ultrasound demonstrating IUD present inside of uterus. Recommended exam under anesthesia, hysteroscopy, IUD removal. The nature of the procedure was described to the patient. The risks, benefits, indications, and alternatives to the procedure were discussed with the patient including bleeding, infection, and damage to surrounding structures. Discussed that risks are very low. Discussed the possibility of perforation and that this could require laparotomy or laparoscopy. Discussed the possibility of damage to surrounding structures including uterus, tubes, ovaries, bowel, or bladder. Understands the risk of hospitalization or reoperation. Voices understanding and agrees to proceed. Coding Level of Care Code Off vis,est,level 3 Diagnoses Intrauterine contraceptive device threads lost, subsequent encounter T83.32XD ?Encounter type: subsequent encounter 04/19/202107 <Electronically signed by Yara Mckeon MD> Date Yara Mckeon MD Cosigner Signature: Date (if applicable) CC: Elda Joy Start: 03-03-2020 End: 04-15-2020 Fishing Hand Office Visit Report Comments: See Note; NOTES: [facility] [address] [place] [address]. [address] [place] [address] OFFICE VISIT Date of Service: 03/03/20 MR#: [id number] Acct: [id number] Name: FRANCHESCA WILCOX Rep #: [id number] : 1985 Provider: LOGAN fitzpatrick Age/Sex: 34/F Location: [facility] Status: Signed Intake Vital Signs 03/03/20 Height 5 ft 4 in 03/03/20 Weight: 143 lb 03/03/20 BP 120/74 Intake Visit Reasons: take IUD out Cloth Tester Required: No Accompanied by: self Allergies ciprofloxacin [From Cipro] Allergy (Verified 03/03/20 09:55) Rash ciprofloxacin HCl [From Cipro] Allergy (Verified 03/03/20 09:55) Rash Medications cholecalciferol (vitamin D3) 50 mcg (2,000 unit) capsule 2,000 unit PO DAILY 02/09/18 [History Confirmed 03/03/20] multivitamin 1 tab PO DAILY 02/09/18 [History Confirmed 03/03/20] copper 380 square mm intrauterine device 1 device INTRAUTERINE ONCE 02/06/20 [History Confirmed 03/03/20] progesterone micronized 100 mg capsule 125 mg PO QAM cap 02/06/20 [History Confirmed 03/03/20] Is last menstrual period known: Yes Last Menstral Period: 02/18/20 Post menopausal: No Patient : No : No PFSH PFSH Medical History Abnormal Pap smear of cervix (Acute) Surgical History History of colposcopy (Resolved) S/P (Resolved) S/P appendectomy (Resolved) Family History Grandmother Breast cancer Grandmother Heart disease Grandfather Heart disease Social History (Updated 03/03/20 @ 10:47 by Dania Lucia 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 Date Name GA/Weeks Outcome Route Bth Weight Gen Labor Lgth Anesthesia Del Locatn Provider FOB 06/19/11 Nick 40 live - full term 9lbs 2oz Male spinal [facility] Dr. Glenna Richardson 11/24/15 Van 39 live - full term 7lbs 7oz Male spinal [facility] Dr. Adams Richardson Delivery Date: 06/19/11 On 02/09/18 @ 10:26 Aminata Angelo No issues during . Csection due to labor stalling. Delivery Date: 11/24/15 On 02/09/18 @ 10:27 Aminata Angelo No issues during or delivery. HPI take IUD out: Details: FRANCHESCA WILCOX is a 34 year old who presents for paragard IUD removal. She does have very short strings but placement confirmed with US. has vasectomy planned next month and wants nuvaring until that is completed. Female Reproductive History Last Menstral Period: 02/18/20 ROS Const Constitutional: Reports as per HPI : Reports as per HPI Exam Const General: cooperative, no acute distress Nutritional Appearance: well nourished Orientation: oriented x3 External Female Exam: normal external appearance Speculum Exam - Vagina: normal appearance of the vagina Speculum Exam - Cervix: normal appearance of the cervix, other (no strings visualize. Not able to remove IUD with tonsil forcep. Deferred) Office Procedures IUD Removal IUD Removal Details: Sign out documentation: Completed Procedure: Speculum placed in vagina, IUD string visualized and grasped with ring forceps. IUD easily removed in its entirety and patient tolerated well. Assessment Plan Problems 1. Attempted IUD removal, unsuccessful Z53.8; Z97.5 2. Irregular menses N92.6 3. General counseling and advice for contraceptive management Z30.09 Plan Discussed will need surgical intervention for removal. Will consider bilateral salpingectomy and cancel spouse vasectomy. She wants to discuss with him and call back with decision. Orders Orders: IUD Removal Today Z30.432 Coding Level of Care Code Off vis,est,level 3 Diagnoses Attempted IUD removal, unsuccessful Z53.8; Z97.5 Irregular menses N92.6 General counseling and advice for contraceptive management Z30.09 03/03/20 1047 <Electronically signed by Dania FORTUNEC> Date Dania FORD Cosigner Signature: Date (if applicable) CC: Elda Joy Start: 02-18-2020 End: 02-18-2020 Pelvic (Non ) Comments: See Note; NOTES: [facility] Imaging Services [address] [place] [address] Pelvic (Non ) MR#: [id number] Acct: [id number] Name: FRANCHESCA WILCOX Rep #: [id number] : 1985 F 34 From: Lauro van MD PCP: Dr. 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 iu check LMP: 01/16/2020. TECHNIQUE: Transabdominal and Transvaginal TECHNICAL QUALITY: Adequate. COMPARISON: None. FINDINGS: The uterus is anteverted and is in a midline position. The uterus measures 8 cm x 5.1cm x 4.2 cm. Normal uterine cervix. The endometrium measures 3.7 mm in thickness, and is . There is no demonstrated endometrial mass. There is no demonstrated myometrial mass. I.U.D. - The patient does have an I.U.D. The right ovary is visualized. The right ovary measures 2.6 cm x 2 cm x 2.5 cm. There is no right ovarian cyst or ovarian mass. There is no visualized right adnexal mass or complex lesion. There is normal arterial and normal venous vascularity. The left ovary is visualized. The left ovary measures 2.5 cm x 2 cm x 2.9 cm. There is a dominant follicle measuring 1.8 cm x 1.3 cm x 1.5 cm There is no visualized left adnexal mass or complex lesion. There is normal arterial and normal venous vascularity. There is no fluid in the cul-de-sac. The pre void volume of the bladder was 546 ml. Polycystic ovary disease: No. US/Pelvic (Non ) IMPRESSION: IUD is seen within the endometrium. Dominant follicle in the left ovary measuring 1.8 cm x 1.3 cm x 1.5 cm. Electronically Signed: Lauro Vasquez, at 15:28 EDT , Service support , CC: LOGAN Lucia; Dr. Elda Joy DO Gift Packer: Signed Elda Joy Work Phone: Start: 02-18-2020 End: 02-18-2020 Transvaginal Non- Comments: See Note; NOTES: [facility] Imaging Services [address] [place] [address] Transvaginal Non- MR#: [id number] Acct: [id number] Name: FRANCHESCA WILCOX Rep #: [id number] : 1985 F 34 From: Lauro van MD PCP: Dr. Elda Joy DO Status: REG CLI Study: Transvaginal Non- Date of Exam: Exam# [id number] Ordering Dr: Dania Lucia NP, NP STUDY: ULTRASOUND OF THE FEMALE PELVIS - COMPLETE REASON FOR EXAM: Female, 34 years old. iu check LMP: 01/16/2020. TECHNIQUE: Transabdominal and Transvaginal TECHNICAL QUALITY: Adequate. COMPARISON: None. FINDINGS: The uterus is anteverted and is in a midline position. The uterus measures 8 cm x 5.1cm x 4.2 cm. Normal uterine cervix. The endometrium measures 3.7 mm in thickness, and is . There is no demonstrated endometrial mass. There is no demonstrated myometrial mass. I.U.D. - The patient does have an I.U.D. The right ovary is visualized. The right ovary measures 2.6 cm x 2 cm x 2.5 cm. There is no right ovarian cyst or ovarian mass. There is no visualized right adnexal mass or complex lesion. There is normal arterial and normal venous vascularity. The left ovary is visualized. The left ovary measures 2.5 cm x 2 cm x 2.9 cm. There is a dominant follicle measuring 1.8 cm x 1.3 cm x 1.5 cm There is no visualized left adnexal mass or complex lesion. There is normal arterial and normal venous vascularity. There is no fluid in the cul-de-sac. The pre void volume of the bladder was 546 ml. Polycystic ovary disease: No. US/Transvaginal Non- IMPRESSION: IUD is seen within the endometrium. Dominant follicle in the left ovary measuring 1.8 cm x 1.3 cm x 1.5 cm. Electronically Signed: Lauro Vasquez, at 15:28 EDT , Service support , CC: LOGAN Lucia; Dr. Elda Joy DO Gift Packer: Signed Elda Joy Work Phone: Start: 02-06-2020 End: 02-06-2020 Fishing Hand Office Visit Report Comments: See Note; NOTES: [facility] [address] [place] [address]. [address] [place] [address] OFFICE VISIT Date of Service: 02/06/20 MR#: [id number] Acct: [id number] Name: FRANCHESCA WILCOX Rep #: [id number] : 1985 Provider: LOGAN fitzpatrick Age/Sex: 34/F Location: [facility] Status: Signed Intake Vital Signs 02/06/20 Height 5 ft 4 in 02/06/20 Weight: 143 lb 6 oz 02/06/20 BMI 24.6 02/06/20 BP 110/70 Intake Visit Reasons: BREAKTHROUGH BLEEDING Cloth Tester Required: No Accompanied by: self Allergies ciprofloxacin [From Cipro] Allergy (Verified 02/06/20 14:56) Rash ciprofloxacin HCl [From Cipro] Allergy (Verified 02/06/20 14:56) Rash Medications cholecalciferol (vitamin D3) 50 mcg (2,000 unit) capsule 2,000 unit PO DAILY 02/09/18 [History Confirmed 02/06/20] multivitamin 1 tab PO DAILY 02/09/18 [History Confirmed 02/06/20] copper 380 square mm intrauterine device 1 device INTRAUTERINE ONCE 02/06/20 [History Confirmed 02/06/20] progesterone micronized 100 mg capsule 125 mg PO QAM cap 02/06/20 [History Confirmed 02/06/20] Is last menstrual period known: Yes Last Menstral Period: 01/16/20 Post menopausal: No Patient : No : No Nurse's Note: breakthrough bleeding, cramping, occasional milky discharge from breasts PFS Medical History Abnormal Pap smear of cervix (Acute) Surgical History History of colposcopy (Resolved) S/P (Resolved) S/P appendectomy (Resolved) Family History Grandmother Breast cancer Grandmother Heart disease Grandfather Heart disease Social History (Updated 02/06/20 @ 15:34 by Dania Lucia 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 Has paragard IUD and unable to feel strings. She is also see naturopathic provider and taking oral progesterone daily for PMDD. Has headaches with estrogen use. Never started OCP Rx'd in Mar 2019 Female Reproductive History Last Menstral Period: 01/16/20 Questions: Metorrhagia: No, Sexually active: Yes, Dyspareunia: No, PCB: No Pregancy History 2 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 Date Name GA/Weeks Outcome Route Bth Weight Infant Gen Labor Lgth Anesthesia Del Locatn Provider FOB 06/19/11 Nick 40 live - full term 9lbs 2oz Male spinal [facility] Dr. Glenna Richardson 11/24/15 Van 39 live - full term 7lbs 7oz Male spinal [facility] Dr. Adams Richardson Delivery Date: 06/19/11 On 02/09/18 @ 10:26 Aminata Angelo No issues during . Csection due to labor stalling. Delivery Date: 11/24/15 On 02/09/18 @ 10:27 Aminata Angelo No issues during or delivery. ROS Const Constitutional: Reports system reviewed and no additional complaints, except as docu Eyes Eyes: Reports system reviewed and no additional complaints, except as docu GI GI: Denies abdominal pain or change in bowel habits : Reports as per HPI Exam Const General: no acute distress Nutritional Appearance: well nourished Orientation: oriented x3 General: bladder normal to palpation External Female Exam: normal external appearance, normal appearance of the urethra Urethra: normal appearance of the urethra Speculum Exam - Vagina: normal appearance of the vagina, normal vaginal discharge, no lesions, nontender Speculum Exam - Cervix: normal appearance of the cervix (unable to visualize IUD strings, no bleeding today) Bimanual Exam- Vagina Uterus: normal bimanual exam, uterine size normal, bladder normal to palpation, uterine shape normal, uterine mobility normal, uterus non-tender Bimanual Exam- Adnexa, other: normal adnexae, no adnexal masses, adnexae non-tender Assessment Plan Problems 1. Irregular menstrual bleeding N92.6 2. IUD check up Z30.431 Plan Consider stopping low dose oral progesterone as may be causing spotting Ultrasound Management dependent on US results Orders Orders: Pelvic (Non ) Today N92.6, Z30.431 Transvaginal Non- Today N92.6, Z30.431 Coding Level of Care Code Off vis,est,level 3 Diagnoses Irregular menstrual bleeding N92.6 IUD check up Z30.431 02/06/20 1535 <Electronically signed by Dania Lucia METER/RELAY TECHNICIAN METER/RELAY TECHNICIAN-C> Date Dania Lucia METER/RELAY TECHNICIAN METER/RELAY TECHNICIAN-C Cosigner Signature: Date (if applicable) CC: Elda Joy Start: 03-29-2019 End: 04-01-2019 Breast Limited Unilateral Comments: See Note; NOTES: [facility] Imaging Services [address] [place] [address] Breast Limited Unilateral MR#: [id number] Acct: [id number] Name: FRANCHESCA WILCOX Rep #: [id number] : 1985 F 33 From: Lauro Vasquez MD PCP: Elda Joy DO Status: REG CLI Study: Breast Limited Unilateral Date of Exam: 03/29/19 Exam# [id number] Ordering Dr: Winnie Rose MD STUDY: ULTRASOUND BREAST - LEFT REASON FOR EXAM: Female, 33 years old. Left breast palpable lump at 6:00. TECHNIQUE: Axial and longitudinal images of the LEFT breast were performed with a high resolution ultrasound transducer. COMPARISON: Comparison is made with prior mammogram done earlier today. FINDINGS: LEFT Breast: The inferior aspect of the left breast was examined by ultrasound. No sonographic timeout using US/Breast Limited Unilateral IMPRESSION: No sonographic abnormalities. ASSESSMENT CATEGORY: BIRADS Category 1: Negative. A letter regarding these results will be sent to the patient by the facility within 30 days. Electronically Signed: Lauro Vasquez, at 15:41 EDT , Service support , CC: Elda Joy DO; Winnie Rose MD Gift Packer: Signed Elda Joy Start: 03-29-2019 End: 03-29-2019 DIAG MAMM W/CAD, BILAT Comments: See Note; NOTES: [facility] Imaging Services [address] [place] [address] DIAG MAMM W/CAD, BILAT MR#: [id number] Acct: [id number] Name: FRANCHESCA WILCOX Rep #: [id number] : 1985 F 33 From: Lauro Vasquez MD PCP: Elda Joy DO Status: REG CLI Study: DIAG MAMM W/CAD, BILAT Date of Exam: 03/29/19 Exam# [id number] Ordering Dr: Winnie Rose MD MAMMOGRAPHY - BILATERAL DIAGNOSTIC REASON FOR EXAM: Female, 33 years old. Lump at the 6:00 position of the left breast. PERTINENT HISTORY: Grandmother with breast cancer. TECHNIQUE: Digital bilateral breast abdi (3D mammographic acquisition) in the CC and MLO projections. 2-D mediolateral oblique (MLO) and craniocaudad (CC) views of both breasts were obtained. CAD: Full Field Digital Mammography with Computer Added Detection was performed. COMPARISON: None. Baseline examination. FINDINGS: Breast Composition: The breasts are extremely dense, which lowers the sensitivity of mammography. There are no dominant masses or suspicious calcifications. No other significant abnormalities are identified. BI/DIAG MAMM W/CAD, BILAT IMPRESSION: Negative diagnostic mammogram. With the patient's history of a palpable abnormality in the left breast, correlation with ultrasound is recommended. ASSESSMENT CATEGORY: BIRADS Category 0: Incomplete. Need additional imaging evaluation. A letter regarding these results will be sent to the patient by the facility within 30 days. Approximately 10% of breast cancers are not detected by mammography. A normal mammogram should not delay biopsy of a clinically suspicious abnormality. Electronically Signed: Lauro Vasquez, at 13:14 EDT , Service support , CC: Elda Joy DO; Winnie Rose MD Gift Packer: Signed Elda Joy Start: 03-12-2019 End: 03-12-2019 Fishing Hand Office Visit Report Comments: See Note; NOTES: [facility] Women's [address] [place] [address] OFFICE VISIT Date of Service: 03/12/19 MR#: [id number] Acct: [id number] Name: FRANCHESCA WILCOX Rep #: [id number] : 1985 Provider: Winnie Rose MD Age/Sex: 33/F Location: [facility] Status: Signed Intake Vital Signs03/12/19 Body Mass Index (BMI) 23.9 03/12/19 Height 5 ft 4 in 03/12/19 Weight: 143 lb 03/12/19 Body Mass Index (BMI) 24.5 03/12/19 Blood Pressure 124/80 H Intake Visit Reasons: ANNUAL EXAM Chief Complaint: est annual Cloth Tester Required: No Is patient in pain?: No Allergies ciprofloxacin [From Cipro] Allergy (Verified 03/12/19 14:18) Rash ciprofloxacin HCl [From Cipro] Allergy (Verified 03/12/19 14:18) Rash Medications cholecalciferol (vitamin D3) 2,000 unit capsule 2,000 unit PO DAILY 02/09/18 [History Confirmed 02/09/18] multivitamin tablet 1 tab PO DAILY 02/09/18 [History Confirmed 02/09/18] norethindrone acetate-ethinyl estradiol 1.5 mg-30 mcg tablet 1 tab PO DAILY #28 tab 03/12/19 [Rx Confirmed 03/12/19] progesterone micronized 100 mg capsule 100 mg PO QAM 03/12/19 [History Confirmed 03/12/19] Post menopausal: No Patient : No : No [facility] Medical History Abnormal Pap smear of cervix (Acute) Surgical History History of colposcopy (Resolved) S/P (Resolved) S/P appendectomy (Resolved) Family History Grandmother Breast cancer Grandmother Heart disease Grandfather Heart disease Social History (Updated 03/12/19 @ 15:44 by Winnie Rose MD) Smoking Status: Never smoker alcohol intake: current details: occasionally substance use type: does not use caffeine: Yes what type of physical activity do you participate in: weight training frequency: 3-4 times per week seatbelt use: always do you feel safe at home: Yes 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 DatName GA/WeeksOutcome Route [facility] LgAnesthesDel LocaProviderFOB e ht en ia tn 06/19/11Kaden 40 live [id number] 2ozMale spinal [facility] Dr. Morales - fuln ano l term Delivery Date: 06/19/11 On 02/09/18 @ 10:26 Aminata Angelo No issues during . Csection due to labor stalling. Delivery Date: 11/24/15 On 02/09/18 @ 10:27 Aminata Angelo No issues during or delivery. [facility] ANNUAL EXAM: Details: FRANCHESCA WILCOX is a 33 year old who presents for annual exam. she has had severe pms symptoms mood rankin. she is having intermittent discharge. she has been seeing a naturopathic care provider and it was recommnded for her to take progesterone Last PAP: u pto date History of abnormal PAP: yes Last mammogram: not due Female Reproductive History Questions: Metorrhagia: No, Sexually active: Yes, Dyspareunia: No, PCB: No Menopausal Symptoms: No hot flashes, No night sweats, No weight change, Yes mood changes, No difficulty concentrating, No sleep problems, No change in libido ROS Const Constitutional: Denies night sweats Cardio Card: Denies chest pain Resp Resp: Denies cough or dyspnea GI GI: Reports as per HPI; denies abdominal pain, bloating, constipation, nausea or vomiting : Denies hot flashes or nipple discharge Skin Skin/Breast: Denies changing lesions, breast lump, breast pain, breast skin changes or nipple discharge Psych Psych: Denies change in sex drive or difficulty concentrating Exam Const General: cooperative, healthy appearing, comfortable, no acute distress, well developed, well groomed [facility] Head: normal to inspection, normocephalic Ears: hearing grossly normal bilaterally, external ears normal Nose: external nose normal Face and sinus: normal facial exam Neck Neck: normal visual inspection, full ROM, no lymphadenopathy Thyroid: thyroid normal Chest Chest palpation AND inspection: normal inspection of the chest Breast inspection: normal inspection of the breasts, normal inspection of the axillae Breast palpation: normal palpation of the axillae, abnormal palpation of the breast (left 1 cm lump infrareolar) Resp Effort AND Inspection: normal respiratory effort GI Inspection: normal to inspection, non-distended Palpation: soft, no hepatosplenomegaly, no guarding General: bladder normal to palpation External Female Exam: normal external appearance, normal appearance of the urethra, no lesions Urethra: normal appearance of the urethra, normal palpation Speculum Exam - Vagina: normal appearance of the vagina, normal vaginal discharge Speculum Exam - Cervix: normal appearance of the cervix, no cervical discharge, no lesions, nontender Bimanual Exam- Vagina AND Uterus: normal bimanual exam, uterine size normal, bladder normal to palpation, No cervical tenderness, uterine mobility normal, uterine consistency normal, uterus non-tender, no cervical motion tenderness Bimanual Exam- Adnexa, other: normal adnexae, no adnexal masses, adnexae non-tender Skin General: no rashes or lesions noted Neuro General: alert, moves all extremities, no focal motor deficits Extrem General: normal to inspection, no pedal edema Psych Appearance: grossly normal Mental Status: mental status grossly normal Affect: normal affect Speech and Movement: speech and movement normal Attitude: cooperative Assessment AND Plan Problems 1. PMDD (premenstrual dysphoric disorder) F32.81 loloestrin 24fe. Plan Cervical cancer screening: pap u pto date Breast cancer screening: ordered imaging STD prevention and contraceptive options including their risks, benefits, and alternatives were reviewed with the patient and she chooses: paragard. can't feel strings- hasn't in past Encouraged maintenance of a healthy weight and active lifestyle and handout given. Calcium/vitamin D recommendations provided. Annual exam handout including recommendations for good health guidelines and basic screening information given. Problem list up to date, see problem list details for any additional plan information. follow up in one year for annual health maintenance exam or sooner if needed. Orders Orders: Medications New: Coding Level of Care Code Off vis,est,prev 18-39yrs Diagnoses PMDD (premenstrual dysphoric disorder) F32.81 03/12/19 1544 <Electronically signed by Winnie Rose MD> Date Winnie Rose MD Cosigner Signature: Date (if applicable) CC: Elda Joy Start: 03-11-2019 End: 03-11-2019 Inital Evaluation (1) - PT Comments: See Note; NOTES: [facility] [address] [place] [address]. [address] [place] [address] / REHABILITATION SERVICES INITIAL EVALUATION MR#: [id number] Acct: [id number] Name: FRANCHESCA WILCOX Rep #: [id number] : 1985 33 From: Hussain Page PT, Cert. MDT, OCS Referring DrRose: Cristobal HILL Status: REG RCR Insurance: [facility] SELF PAY INSURANCE Patient's Visit Information FRANCHESCA WILCOX is a 33 year old F referred to Physical Therapy by Cristobal Sarmiento PA-C with a diagnosis of PAIN IN RIGHT SHOULDER. Date of Evaluation: 03/08/19 Physical Therapist: Hussain Page, PT, Cert MDT, OCS - Visit Plan Frequency: 2x /Week Duration: 4 Weeks Plan: PT INTEREVENTIONS RTC/SCAPULAR STRENGTHENING,POSTURAL EX'S,MODALTIES FOR PAIN RELIEVE NEEDED - Subjective Findings: This 33 y/o female presents to physical therapy with right shoulder pain. Patient may have strained right shoulder end December throwing baseball. Location of pain pposterior shoulder ,global .Seen ortho at [facility],did x-rays-,medro pack. 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 Symtoms increase 8/10 worst.Pain affects sleeping. Alleviating medropack,ice pack. Denies parathesia/tingling. Patient pain affects QOL and housework . Patient pain affects QOL. 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 SOCAIL: - Pain Right Shoulder Pain Intensity (Out of 10): 8 Pain Intensity Range: 10 Comment: 2-3/10 today - Objective POSTURE: mild foward posture. NEURO: intact. PALAPTION: unremarkable. AROM: shoulder flexion 155 degrees,abd 160 degrees ,ER 90 > all pane with OP. IR able to reach T8. MMT: RTC 4/5 ,anterior deltoid 4-/5,lateral deltoid 4-/5 pain ,middle traps 4-/5 ,lower traps 3+/5 - Special Tests R Shoulder Supine Impingement Test - RC Tear: Negative R Shoulder Lift Off Test - Subscapular Tear: Negative R Shoulder Neer - Impingement: Positive R Shoulder Chen Milo - Impingement: Positive - Goals Goal 1:: Independant with HEP Goal Time Frame: 4-6 Weeks Goal 2:: Improve posture for ADL'S Goal Time Frame: 4-6 Weeks Goal 3:: Decrease pain rght shoulder by 60% or > to improve function with [place] activities Goal Time Frame: 4-6 Weeks Goal 4:: Patioent have full ROM shoulder for function tasks above 90 degrees with pain Goal Time Frame: 4-6 Weeks Goal 5:: Patient to improve owestry score by 5 points or> to improve QOL Goal Time Frame: 4-6 Weeks - Rehabilitation Potential Physical Therapy Diagnosis: This patient has right shouder pain with possibe posterior labral dysfunction with pain with ROm with abduction/ ER, [place] activites ,deltoid pain with MMT thus benifit from skilled PT Rehabilitation Potential: Good - Anticipated Interventions Patient/Client Instruction: Educate patient on: Condition, Plan of Care For the Purpose of:: To decrease pain, To increase ROM, To improve muscle performance and motor function, To improve ability to perform ADL's, To increase tolerance to activity/condition/positi on, To improve ability of physical actions for home/community/work/leisu re, To improve health of tissue, To decrease soft tissue restriction, To increase flexibility/ROM, To reduce risk of recurrence, To improve ability to perform tasks related to life management Therapeutic Exercise to Include: Strength training, Postural training, Flexibilty training, Scapular Strength/Stabilization Comment: RTC/SCAPULAR For the Purpose of:: To decrease pain, To increase ROM, To improve muscle performance and motor function, To improve ability to perform ADL's, To improve ability of physical actions for home/community/work/leisu re, To improve health of tissue, To decrease soft tissue restriction, To increase flexibility/ROM, To reduce risk of recurrence, To improve ability to perform tasks related to life management TENS: Yes IF ES: Yes Cryotherapy (ice pack, ice massage): Yes Thermo therapy (hot pack): Yes Ultrasound (thermal/non thermal): Yes For the Purpose of:: To decrease pain, To increase ROM, To improve nutrient delivery to tissue, To increase oxygenation perfusion, To improve health of tissue, To decrease soft tissue restriction Thank you for the opportunity to evaluate your patient. For Medicare and Medicare HMO plans, please review the plan of care and approve it. It will need to be FAXED BACK to us at [phone] for Medicare purposes. For Medicare only, by signing this I certify the plan of care. Please let me know if there are questions or concerns regarding this plan of care. Physician Signature: Date: _ <Electronically signed by Hussain Page PT, Cert. MDT, OCS> 03/11/19 1414 CC: Elda Joy DO; Cristobal HILL EUSEBIO Signed Elda Joy Start: 10-15-2018 End: 10-15-2018 Foot min 3 Views Comments: See Note; NOTES: [facility] Imaging Services [address] [place] [address] Foot min 3 Views MR#: [id number] Acct: [id number] Name: FRANCHESCA WILCOX Rep #: [id number] : 1985 F 33 From: Lauro Vasquez MD PCP: Elda Joy DO Status: REG CLI Study: Foot min 3 Views Date of Exam: 10/15/18 Exam# [id number] Ordering Dr: Elda Joy DO STUDY: X-RAY - RIGHT FOOT CLINICAL: Female, 33 years old. Pain and swelling of the first metatarsophalangeal joint following injury. TECHNIQUE: 3 view(s) of the foot. COMPARISON: None. FINDINGS: Normal talus, calcaneus, and tarsal bones. Normal visualized subtalar, talonavicular, calcaneocuboid, tarsal and tarsometatarsal articulations. Normal metatarsi. Normal metatarsophalangeal joint of the great toe. Normal tibial and fibular sesamoid bones. Normal interphalangeal joint of the great toe. Normal phalanges of the great toe. Normal second through fifth metatarsophalangeal joints. Normal interphalangeal joints and phalanges of the lesser toes. The soft tissue structures are unremarkable. RAD/Foot min 3 Views IMPRESSION: Normal x-ray examination of the foot. Electronically Signed: Lauro Vasquez, at 15:17 EDT , Service support , CC: Elda Joy DO Gift Packer: Signed Elda Joy Work Phone: Start: 02-09-2018 End: 02-09-2018 Fishing Hand Office Visit Report Comments: See Note; NOTES: [facility] [address] [place] [address] OFFICE VISIT Date of Service: 02/09/18 MR#: [id number] Acct: [id number] Name: FRANCHESCA WILCOX Rep #: [id number] : 1985 Provider: Winnie Rose MD Age/Sex: 32/F Location: [facility] Status: Signed Intake Vital Signs02/09/18 Height 5 ft 4 in 02/09/18 Weight: 139 lb 8 oz 02/09/18 Body Mass Index (BMI) 23.9 02/09/18 Blood Pressure 127/77 Intake Visit Reasons: ANNUAL Cloth Tester Required: No Is patient in pain?: No Allergies ciprofloxacin [From Cipro] Allergy (Verified 02/09/18 10:21) Rash ciprofloxacin HCl [From Cipro] Allergy (Verified 02/09/18 10:21) Rash Medications cholecalciferol (vitamin D3) 2,000 unit capsule 2,000 unit PO DAILY 02/09/18 [History Confirmed 02/09/18] multivitamin tablet 1 tab PO DAILY 02/09/18 [History Confirmed 02/09/18] Is last menstrual period known: Yes Last Menstral Period: 02/01/18 Post menopausal: No Patient : No : No [facility] Medical History Abnormal Pap smear of cervix (Acute) Surgical History History of colposcopy (Resolved) S/P (Resolved) S/P appendectomy (Resolved) Family History Grandmother Breast cancer Grandmother Heart disease Grandfather Heart disease Social History Smoking Status: Never smoker alcohol intake: current details: occasionally substance use type: does not use caffeine: Yes what type of physical activity do you participate in: weight training frequency: 3-4 times per week seatbelt use: always do you feel safe at home: Yes 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 DateName GA/Weeks Outcome Route Bth WeighInfant GeLabor LgtAnesthesiDel LocatProvider FOB t n h a n Delivery Date: 11/24/15 On 02/09/18 @ 10:27 Aminata Angelo No issues during or delivery. Delivery Date: 06/19/11 On 02/09/18 @ 10:26 Aminata Angelo No issues during . Csection due to labor stalling. HPI ANNUAL: Details: FRANCHESCA WILCOX is a 32 year old who presents for annual exam. paragard since 2016 Last PAP: 2016 normal History of abnormal PAP: Other preventative health care screenings: ordered Female Reproductive History Last Menstral Period: 02/01/18 Cycle Length: 21-35 Bleeding Duration: 7 Questions: Metorrhagia: No, Sexually active: Yes, Dyspareunia: No, PCB: No ROS Const Constitutional: Reports as per HPI; denies poor appetite, fatigue, increased appetite, weight gain or weight loss Cardio Card: Denies chest pain Resp Resp: Denies dyspnea or cough GI GI: Reports as per HPI; denies bloating, abdominal pain, constipation, vomiting or nausea : Reports as per HPI and other; denies blood in urine, vaginal odor, vaginal itching, vaginal dryness, vaginal discharge, urinary urgency, urinary incontinence, urinary frequency, pelvic pain, painful urination, difficulty urinating, prolapse symptoms or nipple discharge Skin Skin/Breast: Denies breast pain, breast skin changes, nipple discharge, breast lump or changing lesions Exam Const General: cooperative, healthy appearing, comfortable, no acute distress, well developed, well groomed HENND Head: normal to inspection, normocephalic Ears: hearing grossly normal bilaterally, external ears normal Nose: external nose normal Face and sinus: normal facial exam Neck Neck: normal visual inspection, full ROM, no lymphadenopathy Thyroid: thyroid normal Chest Chest palpation AND inspection: normal inspection of the chest Breast inspection: normal inspection of the breasts, normal inspection of the axillae Breast palpation: normal palpation of the breasts, normal palpation of the axillae, no axillary lymphadenopathy Resp Effort AND Inspection: normal respiratory effort GI Inspection: normal to inspection, non-distended Palpation: no guarding, soft, no hepatosplenomegaly General: bladder normal to palpation External Female Exam: normal external appearance, normal appearance of the urethra, no lesions Urethra: normal appearance of the urethra, normal palpation Speculum Exam - Vagina: normal appearance of the vagina, normal vaginal discharge Speculum Exam - Cervix: normal appearance of the cervix, no cervical discharge, no lesions, nontender Bimanual Exam- Vagina AND Uterus: No cervical tenderness, normal bimanual exam, uterine size normal, bladder normal to palpation, uterine mobility normal, uterine consistency normal, uterus non-tender, no cervical motion tenderness Bimanual Exam- Adnexa, other: normal adnexae, no adnexal masses, adnexae non-tender Skin General: no rashes or lesions noted Neuro General: alert, moves all extremities, no focal motor deficits Extrem General: no pedal edema, normal to inspection Psych Appearance: grossly normal Mental Status: mental status grossly normal Affect: normal affect Speech and Movement: speech and movement normal Attitude: cooperative Assessment AND Plan Problems 1. Encounter for gynecological examination without abnormal finding Z01.419 Plan Cervical cancer screening: pap hpv Breast cancer screening: clinical STD prevention and contraceptive options including their risks, benefits, and alternatives were reviewed with the patient and she chooses: continue paragard since 2016 Encouraged maintenance of a healthy weight and active lifestyle and handout given. Calcium/vitamin D recommendations provided. Annual exam handout including recommendations for good health guidelines and basic screening information given. Problem list up to date, see problem list details for any additional plan information. follow up in one year for annual health maintenance exam or sooner if needed. Orders Orders: Medications Discontinued: oxycodone-acetaminophen 5-325 mg D1 - 2 tabs PO Q4H PRN PRN Moderate P Aminata L Gi iscontinued Reason: Order Completed ain (-10/12) Coding Level of Care Code Off vis,est,prev 18-39yrs Diagnoses Encounter for gynecological examination without abnormal finding Z01.419 Gynecological examination findings: abnormal findings ABSENT 02/09/18 1050 <Electronically signed by Winnie Rose MD> Date Winnie Chandler Signature: Date (if applicable) CC: Elda Joy Start: 03-10-2016 End: 03-10-2016 Inital Evaluation (1) - PT Comments: See Note; NOTES: [facility] [address] [place] [address] Fax REHABILITATION SERVICES INITIAL EVALUATION MR#: [id number] Acct: [id number] Name: FRANCHESCA WILCOX Rep #: [id number] : 1985 30 From: Tahira Washington DPT Referring Dr.: Donn Thomas DO Status: REG RCR Insurance: [facility] Patient's Visit Information FRANCHESCA WILCOX is a 30 year old F referred to Physical Therapy by Donn Thomas with a diagnosis of Neck Spasms. Date of Evaluation: 03/10/16 Physical Therapist: Tahira Washington - Visit Plan Frequency: 1-2x /Week Duration: 3 Months Plan: Scapular s/s, postural education, Dry Needling and manual therapy. - Subjective Subjective: Patient reports that she has had muscle spasms in her upper trap for years. She had a baby in November and is just now getting back in- she felt she should have come earlier but life has been hectic. She has been seeing a Chiropractor for adjustments every 3-4 weeks- after baby every 2 weeks then backed down to every 3-4 weeks. Neck and Back. Pain in the right side- from the UT down the arm Worst: 4/10 Best: 0/10 little numbness down the arm. 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 She does not have migraines but does have normal headaches. PMHx: 2 c- sections. Meds: none- is currently nursing her son. Graduated school- [employer]- laser once a week and in the urgent care for 2 days. x-rays- none recently. No PMHx or Med change - Objective Posture: FH, RS- can correct with VC's. ROM: Cervical: WNL pain at end range bilateral SB and Rotation. Shoulder: WNL pain at end range flexion and IR- reports tightness. Strength: 4+/5 throughout UE. Palpation: tender with TP's throughout Upper Trap, Levator, SCM, Scalenes, Suboccipital and shoulder girdle. Sensation/Reflexes: WNL - Goals Goal 1:: Patient will be I with HEP and progression Goal Time Frame: 8-12 Weeks Goal 2:: Patient will demo full cervical and shoulder ROM with 0/10 pain Goal Time Frame: 8-12 Weeks Goal 3:: Patient will maintain proper posture t/o tx session to demo increased scap s/s. Goal Time Frame: 8-12 Weeks Goal 4:: Patient will report 0/10 pain with no ALVAREZ for 1 month Goal Time Frame: 8-12 Weeks - Rehabilitation Potential Physical Therapy Diagnosis: Patiet presents with hypomobility- she has increased trigger points throughout cervical and shoulder girdle leading to poor posture and increased pain with mobility. Rehabilitation Potential: Good - Anticipated Interventions Patient/Client Instruction: Educate patient on: Benefits of Fitness Program For the Purpose of:: To increase tolerance to activity/condition/positi on Therapeutic Exercise to Include: Strength training, Endurance training, Coordination, Body mechanics, Postural training, Scapular Strength/Stabilization For the Purpose of:: To improve muscle performance and motor function Manual Therapy Techniques to Include: Mobilization, Functional dry needling, Soft tissue mobilization For the Purpose of:: To improve muscle performance and motor function TENS: Yes Cryotherapy (ice pack, ice massage): Yes Thermo therapy (hot pack): Yes For the Purpose of:: To decrease pain Thank you for the opportunity to evaluate your patient. For Medicare and Medicare HMO plans, please review the plan of care and approve it. It will need to be FAXED BACK to us at [phone] for Medicare purposes. Please let me know if there are questions or concerns regarding this plan of care. Physician Signature: Date: _ <Electronically signed by Tahira Washington DPT> 03/10/16 1438 CC: Elda Joy DO; Donn Thomas DO ELR Signed For Medicare only, by signing this I certify the plan of care. ___ Physicians Signature Date Elda Joy Start: 10-30-2014 End: 10-30-2014 Inital Evaluation - PT Comments: See Note; NOTES: [facility] [place] [address] Fax REHABILITATION SERVICES INITIAL EVALUATION MR#: [id number] Acct: [id number] Name: FRANCHESCA WILCOX Rep #: [id number] : 1985 29 From: Tahira Washington Referring Dr.: Donn Thomas DO Status: REG RCR Insurance: [facility] Date: DATE OF SERVICE: 10/30/2014 Franchesca Wilcox is a 29-year-old female referred to physical therapy by Dr. Thomas with a medical diagnosis of cervical pain. SUBJECTIVE: The patient reports that she has muscle spasms in her upper trapezius a couple of years ago. She fell on the stairs. Pain at its worst is a 5/10, best is 0/10, currently is 0/10. The patient reports pain is dull and achy. No numbness and tingling. Aggravated by stress and overhead movement, eases are nothing. She did PT last summer, which does help some, but does not make it go away completely. She does stretching and cervical retractions. Sleep is not disturbed. She does cross fit 2-3 times a week. She has massages, but not consistently. She sees a chiropractor 1 time a month for adjustments, normally helps for approximately a month. She does not have migraines, but does report headaches. She has a 3-year-old son that she is caring and caring for daily. She does have headaches daily if she stressed. 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 PAST MEDICAL HISTORY: None. MEDICATIONS: None. OBJECTIVE: POSTURE: Forward head, rounded shoulders. No increased kyphosis. CERVICAL RANGE OF MOTION: Flexion within functional limits, extension within functional limits. Pain at end range rotation to the right, pain at end range rotation to the left within functional limits. Side bend left and right each has increased discomfort. PALPATION: Significant trigger points throughout upper trapezius bilaterally. SENSATION/REFLEXES: Intact. STRENGTH: Shoulder strength is 5/5. Scapular strength/stabilization is fair. INITIAL TREATMENT EVALUATION: Educated the patient on diagnosis and plan of care. The patient is agreeable to plan of care. Instructed the patient on home exercise program, which included education on trigger point dry needling risks and precautions. PT performed dry needling using 40 mm needles to bilateral upper trapezius. Local twitch response elicited in left and right. Encouraged the patient with post-dry needling care including increased water intake. ASSESSMENT: Franchesca is a 29-year-old female referred to physical therapy with medical diagnosis of neck pain. The patient presents with hypomobility. The patient has decreased cervical range of motion, increased musculature of upper trapezius with trigger point. The patient's rehabilitation potential is fair. The patient will benefit from skilled physical therapy to solve the following problems and meet the following goals. PROBLEM LIST: 1. Decreased knowledge of home exercise program. 2. Decreased cervical range of motion. 3. Increased pain. 4. Increased headaches. GOALS: 1. The patient will be independent with home exercise program progression. 2. The patient will demonstrate full cervical range of motion where deficit to ease ADLs with 0/10 pain. 3. The patient will demonstrate zero trigger points throughout upper trapezius. 4. The patient will report 0/10 pain for 1 week with no headaches. PLAN OF CARE: The patient will be seen 1 time a week for 4 weeks for trigger point dry needling. The patient will be educated on diagnosis and plan of care. The patient will be educated in home exercise program progression. Interventions to include therapeutic exercise, therapeutic activity, neuromuscular education, gait, manual modalities. The patient's discharge plan is independent with home exercise program and return to normalized activities with decreased pain. Tahira Washington DPT T: EMELY JOB: [id number] <Electronically signed by Tahira Washington > 10/30/14 1219 CC: Signed For Medicare only, by signing this I certify the plan of care. ___ Physicians Signature Date Elda Joy Start: 04-29-2013 End: 04-29-2013 Transvaginal Non- Comments: See Note; NOTES: [facility] Imaging Services [address] [place] [address] Ultrasound Report MR#: [id number] Acct: [id number] Name: FRANCHESCA WILCOX Rep #: [id number] : 1985 F 28 From: Charly Ortiz MD PCP: Tiny Pritchard DO Status: REG CLI Study: Transvaginal Non- Date of Exam: 04/29/13 Exam# [id number] Ordering Dr: Elda Joy DO STUDY: ULTRASOUND TRANSVAGINAL CLINICAL: Female, 28 years old. Pelvic pain since last . Last menstrual period 03/27/13 TECHNIQUE: Transvaginal COMPARISON: None. FINDINGS: Normal uterine size measuring 8.9 x 4.8 x 4.4 cm in maximal craniocaudal dimension. There are no myometrial masses. Normal endometrial thickness measuring 21 mm. There are no endometrial masses, and there is no fluid in the endometrial cavity. There is an intrauterine device located in the lower uterine segment and in the region of the endocervical canal. Clinical followup recommended. Normal uterine cervix. Normal right ovary, measuring 3 x 2.8 x 2.1 cm. There are multiple follicles without a dominant cyst. Normal left ovary, measuring 2.6 x 2.5 x 1.9 cm. There are multiple follicles without a dominant cyst. There is no free fluid in the pelvis. IMPRESSION: There is an intrauterine device which is located inferiorly within the lower uterine segment and endocervical canal. Clinical followup recommended. Normal-appearing adnexa. Electronically Signed: Charly Ortiz M.D. at 16:52 EST , Service support [phone], CC: Tiny Pritchard DO; Elda Joy DO Gift Packer: Signed Elda Joy Work Phone: History of appendectomy Appendectomy Alyse Cleary RN Plan of Treatment Date Care Activity Detail Author Start: 04-25-2019 Procedure Education Eprescribed prescriptions (G8553) [facility] Work Phone: Start: 12-13-2018 Assay of insulin total INSULIN, TOTAL (22576) [facility] Work Phone: Start: 12-10-2018 Microsomal antibodies each Anti TPO Antibody (06883) [facility] Work Phone: Start: 12-10-2018 Thyroglobulin antibody THYROGLOBULIN ANTIBODY (56502) [facility] Work Phone: Start: 12-10-2018 25 hydroxy includes fractions if performed CALCIFEDIOL (29850) [facility] Work Phone: Start: 12-10-2018 Triiodothyronine t3 reverse REVERSE TRIIDOTHYRONINE (70251) [facility] Work Phone: Start: 12-10-2018 Cobalamin (Vitamin B12) [Mass/Vol] VITAMIN B12 AND FOLATES (08012) [facility] Work Phone: Start: 12-10-2018 Free T4 [Mass/Vol] T4, FREE (THYROXINE) (08742) [facility] Work Phone: Start: 12-10-2018 Free T3 [Mass/Vol] T3, FREE (TRIDOTHYRONINE) (89419) [facility] Work Phone: Start: 12-10-2018 TSH Qn TSH (THYROID STIMULATING HORMONE) (11201) [facility] Work Phone: Start: 12-10-2018 Iron [Mass/Vol] IRON (14438) [facility] Work Phone: Start: 12-10-2018 CBC, PLATELETS & MANUAL DIFF (89116) CBC, PLATELETS & MANUAL DIFF (14332) [facility] Work Phone: Start: 04-15-2015 Provider Instructions for Treatment Follow up if no improvement or if symptoms worsen [facility] Work Phone: Start: 09-17-2014 Procedure Education Eprescribed prescriptions (G8553) [facility] Work Phone: Start: 12-31-2012 Patient Education Sore throat: diagnosis and treatment [facility] Work Phone: Start: 10-10-2012 Patient Education Fatigue: fatigue [facility] Work Phone: Start: 09-10-2012 25 hydroxy includes fractions if performed CALCIFEDIOL (82288) [facility] Work Phone: Start: 06-08-2012 Patient Education Depression: Brief Version *: depression [facility] Work Phone: Start: 06-15-2010 Comprehensive metabolic panel METABOLIC PANEL, COMPREHENSIVE (13720) [facility] Work Phone: Start: 06-15-2010 25 hydroxy includes fractions if performed Vitamin D Hydroxy (96322) [facility] Work Phone: Start: 05-11-2010 25 hydroxy includes fractions if performed Vitamin D Hydroxy (09095) [facility] Work Phone: Start: 05-11-2010 Provider Instructions for Treatment *Antidepressant Usage [facility] Work Phone: Start: 12-14-2009 Provider Instructions for Treatment *Antibiotic Usage Education - Female [facility] Work Phone: CBC W Auto Different ial panel - Blood [facility] Glucose [Mass/volume ] in Serum or Plasma [facility] Hemoglobin A1c/Hemoglobin.total in Blood [facility] Lipid 1996 panel - S jesusita or Plasma [facility] T4 free measurement [facility] Thyroid stimulating hormone measurement [facility] Work Phone: [facility] Work Phone[facility] Work Phone: [facility] Work Phone[facility] Work Phone: [facility] Work Phone[facility] Work Phone: [facility] Work Phone: [facility] Work Phone: Immunizations Immunization Date Immunization Notes Care Provider [facility] 04-03-2024 influenza, seasonal, injectable, preservative free Dr. Elda Joy DO Work Phone: [facility] 03-30-2023 influenza, injectabl e, quadrivalent, preservative free Dr. Elda Joy DO Work Phone: [facility] 04-04-2022 influenza, injectabl e, quadrivalent, preservative free Dr. Elda Joy DO Work Phone: [facility] 04-04-2022 influenza, seasonal, injectable [facility] 04-07-2021 influenza, injectabl e, quadrivalent, preservative free Dr. Elda Joy DO Work Phone: [facility] 04-07-2021 influenza, seasonal, injectable [facility] 04-07-2021 Seasonal, quadrivale nt, recombinant, injectable influenza vaccine, preservative free Dr. Elda Joy DO Work Phone: [facility] 07-21-2020 Covid (Moderna) [facility] 06-23-2020 Covid (Moderna) [facility] 10-05-2015 tetanus toxoid, redu moses diphtheria toxoid, and acellular pertussis vaccine, adsorbed [facility] 08-25-2015 tetanus toxoid, redu moses diphtheria toxoid, and acellular pertussis vaccine, adsorbed Dr. Elda Joy DO Work Phone: [facility] 03-18-2015 influenza, injectabl e, quadrivalent, preservative free Dr. Elda Joy DO Work Phone: [facility] 03-18-2015 influenza, seasonal, injectable [facility] Payers Date Payer Category Payer Self-pay [id number] 2011 Unknown [id number] Unknown Medical [facility] Unknown [id number] Unknown [id number] Unknown [id number] Unknown [id number] Unknown [id number] Unknown [id number] Social History Date Type Detail Facility Alcohol Use Alcohol Use [facility] Work Phone: Comment on above: Occasional alcohol u se 3-5 days a wk 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, 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 Tobacco use: Tobacco use: [facility] Work Phone: Tobacco use: Tobacco use: [facility]; [facility] Work Phone: Start: 1985 Sex Assigned At Female [facility] Start: 07-14-2022 End: 09-29-2022 Tobacco smoking status NHIS Unknown if ever smoked [facility] Start: 04-20-2020 Non-smoker [facility] Start: 07-17-2023 Tobacco smoking stat us NHIS Never smoked tobacco (finding) [facility] Discharge summary 01-08-2025 Note Date & Type Note Facility 01-08-2025 Discharge summary Note Date/Time January 08, 2025 7:2 6am [facility] [address] [place] [address] / REHABILITATION SERVICES DISCHARGE SUMMARY MR#: [id number] Acct: [id number] Name: FRANCHESCA WILOCX Rep #: [id number] : 1985 39 From: Tahira DARBY T Referring DrRose: Self Referred Status: REG RCR Insurance: [facility] INSURANCE Patient Information Patient Information: FRANCHESCA WILCOX was seen in my office for initial evaluation on . The following Plan of Care was established for this patient: Anticipated Interventions Manual Therapy Techniques to Include: Functional dry needling Last Seen Last Seen: This patient was last seen in our office . Pertinent comments regarding their Physical therapy will appear below: Dry Needling d/c chart At this point I will be discontinuing this patient from physical therapy. I would be happy to see this patient again in the future if found appropriate by the physician. Thank you! Tahira Washington, DPT <Electronically signed by Tahira Washington DPT> 01/08/25 0726 CC: Dr. Elda Joy, DO; Self Referred ~ ELR Signed [facility] Work Phone: Discharge summary 01-08-2025 Note Date & Type Note Facility 01-08-2025 Discharge summary [facility] Clinical Note 07-14-2022 Note Date & Type Note Facility 07-14-2022 Note [facility] Pap Smear Specimen Adequacy July 14, 2022 12:55pm Comment . Satisfactory for evaluation. Comment on above: Satisfactory for contreras luation. Clinical Note 07-14-2022 Note Date & Type Note Facility 07-14-2022 Note [facility] Pap Smear Specimen Adequacy July 14, 2022 12:55pm Comment . Satisfactory for evaluation. Comment on above: Satisfactory for contreras luation. Evaluation note Note Date & Type Note Facility Evaluation note No assessment information availa ble [facility] Work Phone: Evaluation note Note Date & Type Note Facility Evaluation note Diagnosis Onset Date Encounter for routine gyneco logical examination noneactive [facility] Work Phone: Evaluation note Note Date & Type Note Facility Evaluation note Diagnosis Onset Date Anxiety acute PMS (premenstrual syndrome) acute [facility] Work Phone: Instructions Note Date & Type Note Facility Instructions Name How to access health information online Indication:Sinusitis Start: 9 Instruction Type:Patient Education How to access health information online - Detail Indication:Sinusitis Start: 9 Instruction Type:Patient Education Patient Instructions Indication:Sinusitis Start: 9 Instruction Type:Provider Instructions for Treatment Patient Instructions Indication:Dysthymic Start: 5 Instruction Type:Provider Instructions for Treatment Patient Instructions Indication:Other specified conditions associated with female genital organs and menstrual cycle Start: 3 Instruction Type:Provider Instructions for Treatment Patient Instructions Indication:Fatigue Start:10-Oct-2012 Instruction Type:Provider Instructions for Treatment Patient Instructions Indication:Tinea Corporis Start: 3 Instruction Type:Provider Instructions for Treatment Patient Instructions Indication:Dysthymic Start:08-Jun-2012 Instruction Type:Provider Instructions for Treatment [facility]; [facility] Work Phone: Instructions Note Date & Type Note Facility Instructions Name How to access health information online Indication:Sinusitis Start: 9 Instruction Type:Patient Education How to access health information online - Detail Indication:Sinusitis Start: 9 Instruction Type:Patient Education Patient Instructions Indication:Sinusitis Start: 9 Instruction Type:Provider Instructions for Treatment Patient Instructions Indication:Dysthymic Start: 5 Instruction Type:Provider Instructions for Treatment Patient Instructions Indication:Other specified conditions associated with female genital organs and menstrual cycle Start: 3 Instruction Type:Provider Instructions for Treatment Patient Instructions Indication:Fatigue Start:10-Oct-2012 Instruction Type:Provider Instructions for Treatment Patient Instructions Indication:Tinea Corporis Start: 3 Instruction Type:Provider Instructions for Treatment Patient Instructions Indication:Dysthymic Start:08-Jun-2012 Instruction Type:Provider Instructions for Treatment [facility] Work Phone: Reason for referral (narrative) Note Date & Type Note Facility Reason for referral (narrative) No reason for referral information available [facility] Work Phone: Family History No Family History Records FoundUnknown Family Member Name Dates Details Brother 1 Comments:half brother htn ch ol Status:Active Father Comments:living -chews tobac co Status:Active First Degree Relatives Comments:Breast CA, Emotiona l prob, Heart/lung dx Status:Active Mother Comments:living- fibromyalgi a osteopenia Status:Active Unknown Family Member Name Dates Details Brother 1 Comments:half brother htn ch ol Status:Active Father Comments:living -chews tobac co Status:Active First Degree Relatives Comments:Breast CA, Emotiona l prob, Heart/lung dx Status:Active Mother Comments:living- fibromyalgi a osteopenia Status:Active Unknown Family Member Name Dates Details Brother 1 Comments:half brother htn ch ol Status:Active Father Comments:living -chews tobac co Status:Active First Degree Relatives Comments:Breast CA, Emotiona l prob, Heart/lung dx Status:Active Mother Comments:living- fibromyalgi a osteopenia Status:Active Unknown Family Member Name Dates Details Brother 1 Comments:half brother htn ch ol Status:Active Father Comments:living -chews tobac co Status:Active First Degree Relatives Comments:Breast CA, Emotiona l prob, Heart/lung dx Status:Active Mother Comments:living- fibromyalgi a osteopenia Status:Active Unknown Family Member Name Dates Details Brother 1 Comments:half brother htn ch ol Status:Active Father Comments:living -chews tobac co Status:Active First Degree Relatives Comments:Breast CA, Emotiona l prob, Heart/lung dx Status:Active Mother Comments:living- fibromyalgi a osteopenia Status:Active Unknown Family Member Name Dates Details Brother 1 Comments:half brother htn ch ol Status:Active Father Comments:living -chews tobac co Status:Active First Degree Relatives Comments:Breast CA, Emotiona l prob, Heart/lung dx Status:Active Mother Comments:living- fibromyalgi a osteopenia Status:Active Unknown Family Member Name Dates Details Brother 1 Comments:half brother htn ch ol Status:Active Father Comments:living -chews tobac co Status:Active First Degree Relatives Comments:Breast CA, Emotiona l prob, Heart/lung dx Status:Active Mother Comments:living- fibromyalgi a osteopenia Status:Active Unknown Family Member Name Dates Details Brother 1 Comments:half brother htn ch ol Status:Active Father Comments:living -chews tobac co Status:Active First Degree Relatives Comments:Breast CA, Emotiona l prob, Heart/lung dx Status:Active Mother Comments:living- fibromyalgi a osteopenia Status:Active Unknown Family Member Name Dates Details Brother 1 Comments:half brother htn ch ol Status:Active Father Comments:living -chews tobac co Status:Active First Degree Relatives Comments:Breast CA, Emotiona l prob, Heart/lung dx Status:Active Mother Comments:living- fibromyalgi a osteopenia Status:Active Unknown Family Member Name Dates Details Brother 1 Comments:half brother htn ch ol Status:Active Father Comments:living -chews tobac co Status:Active First Degree Relatives Comments:Breast CA, Emotiona l prob, Heart/lung dx Status:Active Mother Comments:living- fibromyalgi a osteopenia Status:Active Relationship Condition Age at Onset Recorded Date/T heather grandmother Malignant neoplasm of breast Unknown grandmother Cardiac disease Unknown grandfather Cardiac disease Unknown Instructions Name Dates Details Patient Instructions Indication:Dysthymic Start:17-Sep-2014 Instruction Type:Provider Instructions for Treatment Patient Instructions Indication:Other specified conditions associated with female genital organs and menstrual cycle Start:29-Apr-2013 Instruction Type:Provider Instructions for Treatment Patient Instructions Indication:Fatigue Start:10-Oct-2012 Instruction Type:Provider Instructions for Treatment Patient Instructions Indication:Tinea Corporis Start:27-Aug-2012 Instruction Type:Provider Instructions for Treatment Patient Instructions Indication:Dysthymic Start:08-Jun-2012 Instruction Type:Provider Instructions for Treatment Name Dates Details Patient Instructions Indication:Dysthymic Start:17-Sep-2014 Instruction Type:Provider Instructions for Treatment Patient Instructions Indication:Other specified conditions associated with female genital organs and menstrual cycle Start:29-Apr-2013 Instruction Type:Provider Instructions for Treatment Patient Instructions Indication:Fatigue Start:10-Oct-2012 Instruction Type:Provider Instructions for Treatment Patient Instructions Indication:Tinea Corporis Start:27-Aug-2012 Instruction Type:Provider Instructions for Treatment Patient Instructions Indication:Dysthymic Start:08-Jun-2012 Instruction Type:Provider Instructions for Treatment Name Dates Details Patient Instructions Indication:Dysthymic Start:17-Sep-2014 Instruction Type:Provider Instructions for Treatment Patient Instructions Indication:Other specified conditions associated with female genital organs and menstrual cycle Start:29-Apr-2013 Instruction Type:Provider Instructions for Treatment Patient Instructions Indication:Fatigue Start:10-Oct-2012 Instruction Type:Provider Instructions for Treatment Patient Instructions Indication:Tinea Corporis Start:27-Aug-2012 Instruction Type:Provider Instructions for Treatment Patient Instructions Indication:Dysthymic Start:08-Jun-2012 Instruction Type:Provider Instructions for Treatment Name Dates Details Patient Instructions Indication:Dysthymic Start:17-Sep-2014 Instruction Type:Provider Instructions for Treatment Patient Instructions Indication:Other specified conditions associated with female genital organs and menstrual cycle Start:29-Apr-2013 Instruction Type:Provider Instructions for Treatment Patient Instructions Indication:Fatigue Start:10-Oct-2012 Instruction Type:Provider Instructions for Treatment Patient Instructions Indication:Tinea Corporis Start:27-Aug-2012 Instruction Type:Provider Instructions for Treatment Patient Instructions Indication:Dysthymic Start:08-Jun-2012 Instruction Type:Provider Instructions for Treatment Name Dates Details How to access [facility] Indication:Sinusitis Start:25-Apr-2019 Instruction Type:Patient Education How to access [facility] [email or web address] online - Detail Indication:Sinusitis Start:25-Apr-2019 Instruction Type:Patient Education Patient Instructions Indication:Sinusitis Start:25-Apr-2019 Instruction Type:Provider Instructions for Treatment Patient Instructions Indication:Dysthymic Start:17-Sep-2014 Instruction Type:Provider Instructions for Treatment Patient Instructions Indication:Other specified conditions associated with female genital organs and menstrual cycle Start:29-Apr-2013 Instruction Type:Provider Instructions for Treatment Patient Instructions Indication:Fatigue Start:10-Oct-2012 Instruction Type:Provider Instructions for Treatment Patient Instructions Indication:Tinea Corporis Start:27-Aug-2012 Instruction Type:Provider Instructions for Treatment Patient Instructions Indication:Dysthymic Start:08-Jun-2012 Instruction Type:Provider Instructions for Treatment Name Dates Details How to access [facility] Indication:Sinusitis Start:25-Apr-2019 Instruction Type:Patient Education How to access [facility] - Detail Indication:Sinusitis Start:25-Apr-2019 Instruction Type:Patient Education Patient Instructions Indication:Sinusitis Start:25-Apr-2019 Instruction Type:Provider Instructions for Treatment Patient Instructions Indication:Dysthymic Start:17-Sep-2014 Instruction Type:Provider Instructions for Treatment Patient Instructions Indication:Other specified conditions associated with female genital organs and menstrual cycle Start:29-Apr-2013 Instruction Type:Provider Instructions for Treatment Patient Instructions Indication:Fatigue Start:10-Oct-2012 Instruction Type:Provider Instructions for Treatment Patient Instructions Indication:Tinea Corporis Start:27-Aug-2012 Instruction Type:Provider Instructions for Treatment Patient Instructions Indication:Dysthymic Start:08-Jun-2012 Instruction Type:Provider Instructions for Treatment Name Dates Details Patient Instructions Indication:Dysthymic Start:17-Sep-2014 Instruction Type:Provider Instructions for Treatment Patient Instructions Indication:Other specified conditions associated with female genital organs and menstrual cycle Start:29-Apr-2013 Instruction Type:Provider Instructions for Treatment Patient Instructions Indication:Fatigue Start:10-Oct-2012 Instruction Type:Provider Instructions for Treatment Patient Instructions Indication:Tinea Corporis Start:27-Aug-2012 Instruction Type:Provider Instructions for Treatment Patient Instructions Indication:Dysthymic Start:08-Jun-2012 Instruction Type:Provider Instructions for Treatment Name Dates Details Patient Instructions Indication:Dysthymic Start:17-Sep-2014 Instruction Type:Provider Instructions for Treatment Patient Instructions Indication:Other specified conditions associated with female genital organs and menstrual cycle Start:29-Apr-2013 Instruction Type:Provider Instructions for Treatment Patient Instructions Indication:Fatigue Start:10-Oct-2012 Instruction Type:Provider Instructions for Treatment Patient Instructions Indication:Tinea Corporis Start:27-Aug-2012 Instruction Type:Provider Instructions for Treatment Patient Instructions Indication:Dysthymic Start:08-Jun-2012 Instruction Type:Provider Instructions for Treatment Chief Complaint and Reason for Visit 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 SELF REFE RRED December 12, 2024 6:56am [facility]. RX WITH PT January 07, 2025 6: 51am Advance Directives No Advanced Directives Records Found Advance Directive Response Recorded Date/ Time Living Will Yes June 05 12:40pm Power of Endodontist Yes June 05 12:40pm Advance Directive Response Recorded Date/ Time Living Will Yes June 05 1:40pm Power of Endodontist Yes June 05 1:40pm Summary Purpose Additional Source Comments Goals (unrecognized section and content) Goals may be documented in a n alternate sectionGoals may be documented in an alternate sectionGoals may be documented in an alternate sectionGoals may be documented in an alternate sectionGoals may be documented in an alternate section Care Teams (unrecognized sec tion and content) Team Status: Active Member Role Status Dates Dr. Elda Joy DO Family Provider Active Dr. Elda Joy DO Primary Care Provider Active Team Status: Inactive Member Role Status Dates Dr. Elda Joy DO Primary Care Provider, Referr ing Provider Active Dr. Winnie Rose MD Attending Provider Active Team Status: Inactive Member Role Status Dates Dr. Elda Joy DO Primary Care Provider Active Dr. Winnie Rose MD Attending Provider, Referr ing Provider Active Team Status: Inactive Member Role Status Dates Dr. Elda Joy DO Primary Care Provider Active Dr. Winnie Rose MD Attending Provider Active Team Status: Inactive Member Role Status Dates Dr. Elda Joy DO Primary Care Provider, Referr ing Provider Active Dania Lucia METER/RELAY TECHNICIAN, METER/RELAY TECHNICIAN-C Attending Provider Active Team Status: Inactive Member Role Status Dates Dr. Elda Joy DO Primary Care Provider Active Krupa Carrizales PA, PA Attending Provider, Referr ing Provider Active Team Status: Active Member Role/Relationship Status Dates Dr. Elda Joy DO Primary Care Provider Active Team Status: Inactive Member Role/Relationship Status Dates Dr. Elda Joy DO Primary Care Provider Active Start: October 03, 2024 End: October 03, 2024 SERGIO THOMAS Attending Provider Active Sta rt: October 03, 2024 End: October 03, 2024 SERGIO THOMAS Referring Provider Active Sta rt: October 03, 2024 End: October 03, 2024 Team Status: Inactive Member Role/Relationship Status Dates Dr. Elda Joy DO Primary Care Provider Active Start: December 12, 2024 End: December 12, 2024 Self Referred Attending Provider Active Start: 2024 End: December 12, 2024 Self Referred Referring Provider Active Start: 2024 End: December 12, 2024 Team Status: Active Member Role/Relationship Status Dates Dr. Elda Joy DO Primary Care Provider Active Start: January 07, 2025 Dr. Hadley Spittle , DO Attending Provider Active Start: January 07, 2025 INFORMATION SOURCE (unrecogn ized section and content) DATE CREATED AUTHOR 02/12/2025 [facility] FOR RECORDS PERTAINING TO PATIENTS WHO ARE OR HAVE BEEN ENROLLED IN A CHEMICAL DEPENDENCY/SUBSTANCEABUSE PROGRAM, SOME INFORMATION MAY BE OMITTED. This clinical summary was aggregated from multiple sources. Caution should be exercised in using it in the provision of clinical care. This summary normalizes information from multiple sources, and as a consequence, information in this document may materially change the coding, format and clinical context of patient data. In addition, data may be omitted in some cases. CLINICAL DECISIONS SHOULD BE BASED ON THE PRIMARY CLINICAL RECORDS. [employer] [facility]. provides no warranty or guarantee of the accuracy or completeness of information in this document.
[2025-02-21 17:32] LABS: Follicle Stimulating Hormone 8.9 mIU/mL
[2025-02-23 08:08] LABS: PROGESTERONE 0.1 ng/mL (.)
[2025-02-27 11:08] LABS: Estrogen, Total, Serum 65 pg/mL (.); Immunoglobulin A 186 mg/dL (87-352); Immunoglobulin G 1286 mg/dL (586-1602); Immunoglobulin M 202 mg/dL (26-217); Testosterone, % Free 1.80 % (0.50-2.80); Testosterone, Free 0.13 ng/dL (0.10-0.85)
== END | disposition home or self-care (01) ==
LOC: LAB 16:17
PROVIDERS: PCP Internal Medicine; Referring Provider Physician Assistant; Visit Provider Physician Assistant
DX: N92.6 Irregular menstruation, unspecified (principal); F32.81 Premenstrual dysphoric disorder; R00.2 Palpitations; K58.0 Irritable bowel syndrome with diarrhea; B37.82 Candidal enteritis
CPT/HCPCS: 36415; 82627; 82670; 82672; 82784; 83001; 83002; 84144; 84270; 84402; 84403; 82626

== ENCOUNTER → 2025-02-24 | Outpatient (CLI) | payer OTHER, SELFPAY | END | disposition home or self-care (01) | LOC: LAB 13:36 | PROVIDERS: PCP Internal Medicine | DX: N92.6 Irregular menstruation, unspecified (principal); F32.81 Premenstrual dysphoric disorder; R00.2 Palpitations; K58.0 Irritable bowel syndrome with diarrhea; B37.82 Candidal enteritis ==